=== PATIENT | male | born 1945 | race Caucasian/White ===

== ENCOUNTER 2021-01-27 10:25 | Inpatient (IN) | payer OTHER, SELFPAY ==
--- NOTE | ~2021-01-27 | CT_ITS ---
EXAMINATION: CT HEAD WITHOUT CONTRAST CLINICAL INFORMATION: Mental status change since August. Rule out CVA. COMPARISON: None available. TECHNIQUE: Contiguous axial imaging was performed from the skull base to vertex without intravenous administration of contrast. This CT examination was performed using dose optimization techniques as appropriate, variously including the following: *Automated exposure control *Adjustment of mA and/or kV according to patient size (this includes techniques or standardized protocols for targeted exams where dose is matched to indication/reason for exam; i.e. extremities or head) FINDINGS: There is no intracranial hemorrhage, hydrocephalus, extra-axial surface collection, midline shift, or other herniation pattern. Bedoya to white matter differentiation is diffusely maintained without evidence of an evolved acute territorial infarct. The basilar cisterns are preserved. No significant soft tissue abnormality. No acute osseous abnormality. Retention cyst and mild mucosal thickening within the left maxillary sinus. Mild mucosal thickening within the ethmoid air cells bilaterally. CT/CT head/brain wo con IMPRESSION: No acute intracranial abnormality.
[2021-01-27 11:00] VITALS: BP 141/72; PULSE 82; RESP 16; TEMP 36.5; O2SAT 100
[2021-01-27 11:43] VITALS: BMI 26.4
--- NOTE | 2021-01-27 12:38 | MHC.CARE ---
Addendum entered by Colette Duggan [facility] 01/27/21 12:40: Keep same auth number and reach out to reviewer, Patrick Quiroz will review auth on 01/28 [id number] Original Note: MICHAEL called patient's insurance co regarding the date of admission changing from 01/26/21 to 01/27/21
[2021-01-27] MEDS: Gabapentin 100 MG CAPSULE PO (12:54)
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
[2021-01-27] MEDS: risperiDONE 0.25 MG TABLET 0.5 MG PO (16:10)
[2021-01-27] MEDS: OLANZapine ODT 10 MG TAB.RAPDIS 5 MG TRANSLINGU (16:10)
[2021-01-27] MEDS: Acetaminophen 325 MG TABLET 650 MG PO (16:15)
[2021-01-27 18:00] VITALS: BP 123/78; PULSE 117; RESP 18; TEMP 36.6; O2SAT 99
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
[2021-01-27] MEDS: Donepezil HCl 10 MG TABLET PO (19:39)
[2021-01-28 06:00] VITALS: BP 139/80; PULSE 113; RESP 16; TEMP 36.8; O2SAT 97
[2021-01-28 08:06] LABS: Anion Gap 11 (12-20); Blood Urea Nitrogen 26 mg/dL (9-16); Calcium 9.9 mg/dL (8.4-10.2); Carbon Dioxide 29 mmol/L (22-29); Chloride 107 mmol/L (96-108); Estimated Glomerular Filt Rate > 60; Glucose Random 101 mg/dL (60-115); Potassium 5.4 mmol/L (3.3-5.1); Sodium 142 mmol/L (135-145)
--- NOTE | 2021-01-28 08:20 | HO.PSYCHPN ---
Subjective Subjective Date of Service: 01/28/21 Reason For Visit: dementia with behavioral disturbance Subjective Notes: Conditional Voluntary Interim History: The nursing staff reported that he slept well, no evidence of agitation since last night. As per admission's note, he has the diagnosis of dementia for the last 3 years, never admitted, but paranoid and aggressive for the last 2 months. On interview, he was confused but pleasant, no new symptoms, no side effects with Risperdal. Medication Compliance: Yes Side effects from medications: No Review of Systems Acute medical concerns: No Medical Review of Systems: unchanged Mental Status Exam Mental Status Exam Patient Appearance: Appropriate Patient Orientation: Person Level of Consciousness: Disoriented Patient Behavior: Suspicious Mood Description: Constricted Affect Description: Constricted Patient Cognition Impaired: Yes Ability to Follow Directions: Fair Speech Pattern: Clear Hallucinations: None Delusions: Paranoid Ideation Judgement: Fair Diagnostics Vital Signs (24Hr): Vital Signs - 24 hr 01/27/21 11:00 01/27/21 18:00 Temperature 97.7 F 97.9 F Pulse Rate 82 117 H Respiratory Rate 16 18 Blood Pressure 141/72 H 123/78 Pulse Oximetry 100 99 Body Mass Index 26.4 Labs Results: 01/28/21 07:42 Labs: Laboratory Results - last 48 hr 01/28/21 07:42 Sodium 142 Potassium 5.4 H Chloride 107 Carbon Dioxide 29 Anion Gap 11 L BUN 26 H Creatinine 1.18 Estim Creat Clear Calc 47.0 Estimated GFR > 60 Random Glucose 101 Calcium 9.9 Medications Medications Current Medications Generic Name Dose Route Start Last Admin Trade Name Freq PRN Reason Stop Dose Admin Acetaminophen 650 mg 01/27/21 12:17 01/27/21 16:15 Acetaminophen 325 Mg Tablet PO 650 mg Q6H PRN Administration Headache/Pain Mild Scale (1-3) Al Hydroxide/Mg Hydroxide 30 ml 01/27/21 12:17 Magnesium Hydrox/Alum Hydrox 30 Ml Oral.Susp PO Q6H PRN Heartburn/Nausea Apixaban 5 mg 01/28/21 09:00 Apixaban 5 Mg Tablet PO 01/28/21 09:01 DAILY ONE Donepezil HCl 10 mg 01/27/21 21:00 01/27/21 19:39 Donepezil Hcl 10 Mg Tablet PO 10 mg BEDTIME TAMI Administration Finasteride 5 mg 01/28/21 09:00 Finasteride 5 Mg Tablet PO DAILY TAMI Gabapentin 100 mg 01/27/21 12:26 01/27/21 12:54 Gabapentin 100 Mg Capsule PO 100 mg TID PRN Administration anxiety Magnesium Hydroxide 30 ml 01/27/21 12:17 Milk Of Magnesia 30 Ml Oral.Susp PO DAILY PRN Constipation Olanzapine 5 mg 01/27/21 12:21 01/27/21 16:10 Olanzapine Odt 10 Mg Tab.Rapdis TRANSLINGU 5 mg TID PRN Administration psychosis, agitation Omeprazole 20 mg 01/28/21 09:00 Omeprazole 20 Mg Capsule.Dr PO DAILY TAMI Risperidone 0.5 mg 01/27/21 16:00 01/27/21 16:10 Risperidone 0.25 Mg Tablet PO 0.5 mg BID TAMI Administration Trazodone HCl 25 mg 01/27/21 12:17 Trazodone Hcl 25 Mg Halftab PO BEDTIME PRN Insomnia Allergies Allergies Allergy/AdvReac Type Severity Reaction Status Date / Time No Known Allergies Allergy Verified 01/27/21 11:46 Assessment & Plan Assessment & Plan (1) Dementia with behavioral disturbance: Status: Acute Code(s): F03.91 - Unspecified dementia with behavioral disturbance (2) Agitation due to dementia: Status: Acute Code(s): F03.91 - Unspecified dementia with behavioral disturbance Assessment and Plan: Admit to [facility]. Admitted on CV. Group and milieu therapy Order medications and adjust accordingly [facility] Medical evaluation Disposition planning Greater than 50% of the session was spent on counseling and/or coordination of care Reason for contiued inpatient stay Substantial Risk for: harm to self, harm to others, inability to function, rapid decompensation and med/psych decompensation
[2021-01-28] MEDS: risperiDONE 0.25 MG TABLET 0.5 MG PO ×2 (09:20→18:15)
[2021-01-28] MEDS: Apixaban 5 MG TABLET PO ×2 (09:20→20:24)
[2021-01-28] MEDS: Finasteride 5 MG TABLET PO (09:21)
[2021-01-28] MEDS: Omeprazole 20 MG CAPSULE.DR PO (09:21)
--- NOTE | 2021-01-28 10:34 | P.CONIM_ITS ---
History of Present Illness Data of Consult Service Date: 01/28/21 Primary Care Provider: Mally Viveros MD [facility] Reason for consult: Medical H&P This is a 75 yo M who is admitted to the inpatient psych unit. Medical services are consulted for medical H&P. Patient is seen on the [facility]. Patient reports he has a history of Alzheimer's. Patient is also present, she mainly reports the history. She reports that her is relatively healthy with only diagnosis of the aforementioned dementia and recently (about 3 weeks ago) diagnosed DVT. Otherwise she reports no other chronic medical issues. The patient himself denies any physical complaints. Review of Systems Review of Systems: General - no fevers or chills Cardiovascular - no chest pain Respiratory - no shortness of breath or cough Abdominal- no abdominal pain, nausea, vomiting, diarrhea PMFSH Medical History (Updated 01/28/21 @ 10:50 by Jorge Snyder MD) Agitation due to dementia Dementia with behavioral disturbance DVT (deep venous thrombosis) Family History (Updated 01/28/21 @ 10:39 by Jorge Snyder MD) Other Cancer Social History Household Members: Sp[facility] Do you presently have visiting nurse or other home services: No Patient Tobacco Use Status: Former Tobacco user Tobacco use type: Cigarette Smoked in Last 30 Days: No e-Cigarette/Vaping Use: Never Used Patient Interested in Nicotine Replacement: No Patient Given Instructions on How to Stop Smoking: No (Patient quit smoking 30 years ago) Second Hand Smoke Exposure: No Use of substances other than those prescribed or required for medical reasons: No Currently Displaying Signs/Symptoms of Drug Intoxication Withdrawal: No Have you been hit, kicked, punched, or otherwise hurt by someone within the past year? If so, by whom?: No Do you feel safe in your current relationship?: Yes Is there a partner from a previous relationship who is making you feel unsafe now?: No Are you made to feel afraid or neglected: No Orthodox Healthcare Practices: Patient requests access to a Bible Advance Directives: No Advance Directives Information Provided: No (declined) Advance Directives on File: No Do you have thoughts of harming others: None Do you have a plan to hurt others: No Plan Recently lost weight without trying: No Eating poorly because of decreased appetite: No Poor oral hygiene: No Meds Allergies Allergy/AdvReac Type Severity Reaction Status Date / Time No Known Allergies Allergy Verified 01/27/21 11:46 Active Medications: Current Medications Generic Name Dose Route Start Last Admin Trade Name Ger PRN Reason Stop Dose Admin Acetaminophen 650 mg 01/27/21 12:17 01/27/21 16:15 Acetaminophen 325 Mg Tablet PO 650 mg Q6H PRN Administration Headache/Pain Mild Scale (1-3) Al Hydroxide/Mg Hydroxide 30 ml 01/27/21 12:17 Magnesium Hydrox/Alum Hydrox 30 Ml Oral.Susp PO Q6H PRN Heartburn/Nausea Donepezil HCl 10 mg 01/27/21 21:00 01/27/21 19:39 Donepezil Hcl 10 Mg Tablet PO 10 mg BEDTIME TAMI Administration Finasteride 5 mg 01/28/21 09:00 01/28/21 09:21 Finasteride 5 Mg Tablet PO 5 mg DAILY TAMI Administration Gabapentin 100 mg 01/27/21 12:26 01/27/21 12:54 Gabapentin 100 Mg Capsule PO 100 mg TID PRN Administration anxiety Magnesium Hydroxide 30 ml 01/27/21 12:17 Milk Of Magnesia 30 Ml Oral.Susp PO DAILY PRN Constipation Olanzapine 5 mg 01/27/21 12:21 01/27/21 16:10 Olanzapine Odt 10 Mg Tab.Rapdis TRANSLINGU 5 mg TID PRN Administration psychosis, agitation Omeprazole 20 mg 01/28/21 09:00 01/28/21 09:21 Omeprazole 20 Mg Capsule.Dr PO 20 mg DAILY TAMI Administration Risperidone 0.5 mg 01/27/21 16:00 01/28/21 09:20 Risperidone 0.25 Mg Tablet PO 0.5 mg BID TAMI Administration Trazodone HCl 25 mg 01/27/21 12:17 Trazodone Hcl 25 Mg Halftab PO BEDTIME PRN Insomnia Physical Exam Vital Signs and Narrative: Vital Signs: Last Vital Signs Temp 98.3 F 01/28/21 06:00 Pulse 113 H 01/28/21 06:00 Resp 16 01/28/21 06:00 BP 139/80 01/28/21 06:00 Pulse Ox 97 01/28/21 06:00 Body Mass Index 26.4 Const: Other: General - no acute distress, appears comfortable Cardiovascular - regular rate and rhythm, S1-S2 Lungs - normal respiratory effort, clear to auscultation bilaterally, no wheezing Abdomen - soft, non-tender, no rebound or guarding Extremities - no edema bilaterally Neuro - awake and alert, no focal deficits; CN 2-12 intact bilaterally Psych - insight impaired Results Labs CBC and Chem 7: 01/28/21 07:42 Labs: Laboratory Results - last 24 hr 01/28/21 07:42 Anion Gap 11 L Estim Creat Clear Calc 47.0 Estimated GFR > 60 Random Glucose 101 Calcium 9.9 Assessment and Plan (1) Routine medical exam: Status: Acute This is a 75 yo M with a PMH of alzheimer's dementia, recently diagnosed DVT (3 weeks ago per history from the ) who is admitted to the [facility]. Medical consult requested for admission H&P. 1. DVT recently diagnosed 3 weeks ago per Patient needs to be started on his oral anticoagulation -- his med rec needs to completed, this has been relayed to the patients RN as well covering psychiatrist. 2. Hyperkalemia will give a dose of lokelma, repeat bmp tomorrow 3. Alzheimer's dementia continue baseline meds Will sign off. Please reconsult or [facility] if any specific questions.
[2021-01-28] MEDS: Sodium Zirconium Cyclosilicate 10 GM POWD.PACK PO (14:44)
[2021-01-28] MEDS: OLANZapine ODT 10 MG TAB.RAPDIS 5 MG TRANSLINGU (14:45)
[2021-01-28] MEDS: Gabapentin 100 MG CAPSULE PO (18:15)
[2021-01-28] MEDS: Donepezil HCl 10 MG TABLET PO (20:24)
[2021-01-28 20:50] VITALS: BP 146/70; PULSE 80; RESP 19; TEMP 36.4; O2SAT 98
[2021-01-29 06:00] VITALS: BP 143/65; PULSE 83; RESP 18; TEMP 36.4; O2SAT 99
[2021-01-29 07:57] LABS: INTERNATIONAL NORM RATIO 1.2 (0.9-1.1); Prothrombin Time 13.2 SEC (9.9-13.0)
[2021-01-29 08:04] LABS: Anion Gap 12 (12-20); Blood Urea Nitrogen 24 mg/dL (9-16); Calcium 9.6 mg/dL (8.4-10.2); Carbon Dioxide 30 mmol/L (22-29); Chloride 106 mmol/L (96-108); Creatinine Clr Calc Pharmacy 51.4; Estimated Glomerular Filt Rate > 60; Glucose Random 96 mg/dL (60-115); Potassium 5.3 mmol/L (3.3-5.1); Sodium 143 mmol/L (135-145)
[2021-01-29] MEDS: Finasteride 5 MG TABLET PO (08:22)
[2021-01-29] MEDS: Omeprazole 20 MG CAPSULE.DR PO (08:22)
[2021-01-29] MEDS: Apixaban 5 MG TABLET PO ×2 (08:22→20:12)
[2021-01-29] MEDS: risperiDONE 0.25 MG TABLET 0.5 MG PO (08:22)
--- NOTE | 2021-01-29 12:39 | P.PNPSI_ITS ---
Subjective Subjective Date of Service: 01/29/21 Reason For Visit: dementia with behavioral disturbance Subjective Notes: Conditional Voluntary Interim History: The nursing staff reported that last night the patient was very angry, he called a relative asking for the phone number of his ex-. He was redirected that now, he is currently with another woman and he was confused. Today at AM, he was assessed with his and he denied new symptoms, stable but pleasantly confused. Medication Compliance: Yes Side effects from medications: No Attending Groups: No Review of Systems Acute medical concerns: No Medical Review of Systems: unchanged Mental Status Exam Mental Status Exam Patient Appearance: Well Grooomed Patient Orientation: Person Level of Consciousness: Awake Patient Behavior: Cooperative Mood Description: Withdrawn Affect Description: Constricted Patient Cognition Impaired: Yes Ability to Follow Directions: Good Speech Pattern: Appropriate Hallucinations: None Delusions: Not Present Thought Content: positive for [place] Judgement: Poor Diagnostics Vital Signs (24Hr): Vital Signs - 24 hr 01/28/21 20:50 01/29/21 06:00 Temperature 97.5 F 97.5 F Pulse Rate 80 83 Respiratory Rate 19 18 Blood Pressure 146/70 H 143/65 H Pulse Oximetry 98 99 Body Mass Index 26.4 Labs Results: 01/29/21 07:41 Labs: Laboratory Results - last 48 hr 01/28/21 01/29/21 01/29/21 07:42 07:41 07:41 PT 13.2 H INR 1.2 H Sodium 142 143 Potassium 5.4 H 5.3 H Chloride 107 106 Carbon Dioxide 29 30 H Anion Gap 11 L 12 BUN 26 H 24 H Creatinine 1.18 1.08 Estim Creat Clear Calc 47.0 51.4 Estimated GFR > 60 > 60 Random Glucose 101 96 Calcium 9.9 9.6 Medications Medications Current Medications Generic Name Dose Route Start Last Admin Trade Name Freq PRN Reason Stop Dose Admin Acetaminophen 650 mg 01/27/21 12:17 01/27/21 16:15 Acetaminophen 325 Mg Tablet PO 650 mg Q6H PRN Administration Headache/Pain Mild Scale (1-3) Al Hydroxide/Mg Hydroxide 30 ml 01/27/21 12:17 Magnesium Hydrox/Alum Hydrox 30 Ml Oral.Susp PO Q6H PRN Heartburn/Nausea Apixaban 5 mg 01/28/21 21:00 01/29/21 08:22 Apixaban 5 Mg Tablet PO 5 mg BID TAMI Administration Donepezil HCl 10 mg 01/27/21 21:00 01/28/21 20:24 Donepezil Hcl 10 Mg Tablet PO 10 mg BEDTIME TAMI Administration Finasteride 5 mg 01/28/21 09:00 01/29/21 08:22 Finasteride 5 Mg Tablet PO 5 mg DAILY TAMI Administration Gabapentin 100 mg 01/27/21 12:26 01/28/21 18:15 Gabapentin 100 Mg Capsule PO 100 mg TID PRN Administration anxiety Magnesium Hydroxide 30 ml 01/27/21 12:17 Milk Of Magnesia 30 Ml Oral.Susp PO DAILY PRN Constipation Olanzapine 5 mg 01/27/21 12:21 01/28/21 14:45 Olanzapine Odt 10 Mg Tab.Rapdis TRANSLINGU 5 mg TID PRN Administration psychosis, agitation Omeprazole 20 mg 01/28/21 09:00 01/29/21 08:22 Omeprazole 20 Mg Capsule.Dr PO 20 mg DAILY TAMI Administration Risperidone 0.5 mg 01/27/21 16:00 01/29/21 08:22 Risperidone 0.25 Mg Tablet PO 0.5 mg BID TAMI Administration Trazodone HCl 25 mg 01/27/21 12:17 Trazodone Hcl 25 Mg Halftab PO BEDTIME PRN Insomnia Allergies Allergies Allergy/AdvReac Type Severity Reaction Status Date / Time No Known Allergies Allergy Verified 01/27/21 11:46 Assessment & Plan Assessment & Plan (1) Dementia with behavioral disturbance: Status: Acute Code(s): F03.91 - Unspecified dementia with behavioral disturbance (2) Agitation due to dementia: Status: Acute Code(s): F03.91 - Unspecified dementia with behavioral disturbance Assessment and Plan: Admit to [facility]. Admitted on CV. Group and milieu therapy Order medications and adjust accordingly [facility] Medical evaluation Disposition planning Increase Risperdal at hs Greater than 50% of the session was spent on counseling and/or coordination of care Reason for contiued inpatient stay Substantial Risk for: harm to self, inability to function, rapid decompensation and med/psych decompensation
[2021-01-29] MEDS: risperiDONE 1 MG TABLET PO (20:12)
[2021-01-29] MEDS: Donepezil HCl 10 MG TABLET PO (20:12)
[2021-01-29 20:45] VITALS: BP 160/77; PULSE 93; RESP 16; TEMP 36.5; O2SAT 97
[2021-01-30 08:15] VITALS: BP 104/70; PULSE 91; RESP 16; TEMP 36.4; O2SAT 98
[2021-01-30] MEDS: Apixaban 5 MG TABLET PO ×2 (08:58→20:43)
[2021-01-30] MEDS: Omeprazole 20 MG CAPSULE.DR PO (08:58)
[2021-01-30] MEDS: risperiDONE 0.25 MG TABLET 0.5 MG PO (08:59)
[2021-01-30] MEDS: Finasteride 5 MG TABLET PO (09:01)
--- NOTE | 2021-01-30 13:46 | HO.PSYCHPN ---
Subjective Subjective Date of Service: 01/30/21 Reason For Visit: dementia with behavioral disturbance Subjective Notes: Conditional Voluntary Interim History: The nursing staff reported that the patient slept well and he had all his meals, no episode of agitation. The social services analyst reported that the feels that he is not safe at home due to the emotional disturbances of the patient but the patient wants to go back home. [place] test of today' is 12. Yesterday, I had a conversation with her regular provider in the community. The doctor explained that in November they tried to change Lexapro to Zoloft and Risperdal was started in most due to paranoia. He is engaging in a study of [employer] in for dementia and his last infusion was a month ago. As per the doctor's report, the infusion does not has paranoia as a side effect. She stated that her [place] or November 2019 was 21/30 and on April was 23 of over 30. On interview, the patient reported he is doing fine and he had a drastic drop on his [place] 9 points in less than 3 months. We will order a CT scan to rule out vascular problems Medication Compliance: Yes Side effects from medications: No Attending Groups: Intermittent Review of Systems Acute medical concerns: No Medical Review of Systems: unchanged Mental Status Exam Mental Status Exam Patient Appearance: Well Grooomed Patient Orientation: Person Level of Consciousness: Awake Patient Behavior: Cooperative Mood Description: Constricted Affect Description: Withdrawn and Relaxed Ability to Follow Directions: Good Speech Pattern: Clear Hallucinations: None Delusions: Paranoid Ideation Thought Process: Goal Oriented Thought Content: positive for Circumstantial and positive for Poverty of Content Judgement: Fair Diagnostics Vital Signs (24Hr): Vital Signs - 24 hr 01/29/21 20:45 01/30/21 08:15 Temperature 97.7 F 97.6 F Pulse Rate 93 91 Respiratory Rate 16 16 Blood Pressure 160/77 H 104/70 Pulse Oximetry 97 98 Body Mass Index 26.4 Labs Results: 01/29/21 07:41 Labs: Laboratory Results - last 48 hr 01/29/21 01/29/21 07:41 07:41 PT 13.2 H INR 1.2 H Sodium 143 Potassium 5.3 H Chloride 106 Carbon Dioxide 30 H Anion Gap 12 BUN 24 H Creatinine 1.08 Estim Creat Clear Calc 51.4 Estimated GFR > 60 Random Glucose 96 Calcium 9.6 Medications Medications Current Medications Generic Name Dose Route Start Last Admin Trade Name Freq PRN Reason Stop Dose Admin Acetaminophen 650 mg 01/27/21 12:17 01/27/21 16:15 Acetaminophen 325 Mg Tablet PO 650 mg Q6H PRN Administration Headache/Pain Mild Scale (1-3) Al Hydroxide/Mg Hydroxide 30 ml 01/27/21 12:17 Magnesium Hydrox/Alum Hydrox 30 Ml Oral.Susp PO Q6H PRN Heartburn/Nausea Apixaban 5 mg 01/28/21 21:00 01/30/21 08:58 Apixaban 5 Mg Tablet PO 5 mg BID TAMI Administration Donepezil HCl 10 mg 01/27/21 21:00 01/29/21 20:12 Donepezil Hcl 10 Mg Tablet PO 10 mg BEDTIME TAMI Administration Finasteride 5 mg 01/28/21 09:00 01/30/21 09:01 Finasteride 5 Mg Tablet PO 5 mg DAILY TAMI Administration Gabapentin 100 mg 01/27/21 12:26 01/28/21 18:15 Gabapentin 100 Mg Capsule PO 100 mg TID PRN Administration anxiety Magnesium Hydroxide 30 ml 01/27/21 12:17 Milk Of Magnesia 30 Ml Oral.Susp PO DAILY PRN Constipation Olanzapine 5 mg 01/27/21 12:21 01/28/21 14:45 Olanzapine Odt 10 Mg Tab.Rapdis TRANSLINGU 5 mg TID PRN Administration psychosis, agitation Omeprazole 20 mg 01/28/21 09:00 01/30/21 08:58 Omeprazole 20 Mg Capsule.Dr PO 20 mg DAILY TAMI Administration Risperidone 0.5 mg 01/30/21 09:00 01/30/21 08:59 Risperidone 0.25 Mg Tablet PO 0.5 mg DAILY TAMI Administration Risperidone 1 mg 01/29/21 21:00 01/29/21 20:12 Risperidone 1 Mg Tablet PO 1 mg BEDTIME TAMI Administration Trazodone HCl 25 mg 01/27/21 12:17 Trazodone Hcl 25 Mg Halftab PO BEDTIME PRN Insomnia Allergies Allergies Allergy/AdvReac Type Severity Reaction Status Date / Time No Known Allergies Allergy Verified 01/27/21 11:46 Assessment & Plan Assessment & Plan (1) Dementia with behavioral disturbance: Status: Acute Code(s): F03.91 - Unspecified dementia with behavioral disturbance (2) Agitation due to dementia: Status: Acute Code(s): F03.91 - Unspecified dementia with behavioral disturbance Assessment and Plan: Admit to [facility]. Admitted on CV. Group and milieu therapy Order medications and adjust accordingly [facility] Disposition planning Increase Risperdal at Add Namenda. Greater than 50% of the session was spent on counseling and/or coordination of care Reason for contiued inpatient stay Substantial Risk for: harm to others, inability to function, rapid decompensation and med/psych decompensation
[2021-01-30 18:00] VITALS: BP 137/72; PULSE 86; RESP 18; TEMP 36.1; O2SAT 99
[2021-01-30] MEDS: Donepezil HCl 10 MG TABLET PO (20:43)
[2021-01-30] MEDS: risperiDONE 1 MG TABLET PO (20:43)
[2021-01-31] MEDS: Acetaminophen 325 MG TABLET 650 MG PO ×2 (03:38→12:39)
[2021-01-31 09:38] VITALS: BP 145/65; PULSE 75; RESP 16; TEMP 36.5; O2SAT 99
[2021-01-31] MEDS: Apixaban 5 MG TABLET PO ×2 (09:43→19:49)
[2021-01-31] MEDS: Memantine HCl 5 MG TABLET PO ×2 (09:43→19:49)
[2021-01-31] MEDS: risperiDONE 0.25 MG TABLET 0.5 MG PO (09:44)
[2021-01-31] MEDS: Omeprazole 20 MG CAPSULE.DR PO (09:44)
[2021-01-31] MEDS: Finasteride 5 MG TABLET PO (09:45)
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
[2021-01-31 18:37] VITALS: BP 134/70; PULSE 84; RESP 19; TEMP 37.1; O2SAT 99
[2021-01-31] MEDS: Donepezil HCl 10 MG TABLET PO (19:49)
[2021-01-31] MEDS: risperiDONE 1 MG TABLET PO (19:49)
[2021-02-01 08:00] VITALS: BP 147/67; PULSE 77; RESP 16; TEMP 36.6; O2SAT 99
[2021-02-01] MEDS: Omeprazole 20 MG CAPSULE.DR PO (08:07)
[2021-02-01] MEDS: Apixaban 5 MG TABLET PO ×2 (08:07→22:37)
[2021-02-01] MEDS: Finasteride 5 MG TABLET PO (08:07)
[2021-02-01] MEDS: risperiDONE 0.25 MG TABLET 0.5 MG PO (08:07)
[2021-02-01] MEDS: Memantine HCl 5 MG TABLET PO (08:07)
--- NOTE | 2021-02-01 13:00 | HO.PSYCHPN ---
Subjective Subjective Date of Service: 02/01/21 Reason For Visit: dementia with behavioral disturbance Subjective Notes: Conditional Voluntary Interim History: The nursing staff reported no new changes on his mental status, he slept well last night. Today on interview, the patient reported that he is willing to go to an [facility]. He is fully aware that he needs an increase of his Namenda due to his cognitive impairment. Medication Compliance: Yes Side effects from medications: No Attending Groups: Intermittent Review of Systems Acute medical concerns: No Medical Review of Systems: unchanged Mental Status Exam Mental Status Exam Patient Appearance: Well Grooomed Patient Orientation: Person Level of Consciousness: Awake Patient Behavior: Cooperative Mood Description: Calm Affect Description: Constricted Ability to Follow Directions: Good Speech Pattern: Clear Hallucinations: None Delusions: Not Present Thought Process: Evasive Thought Content: positive for Circumstantial, positive for Poverty of Content and positive for Loose Associations Judgement: Fair Diagnostics Vital Signs (24Hr): Vital Signs - 24 hr 01/31/21 18:37 02/01/21 08:00 Temperature 98.8 F 97.8 F Pulse Rate 84 77 Respiratory Rate 19 16 Blood Pressure 134/70 147/67 H Pulse Oximetry 99 99 Body Mass Index 26.4 Labs Results: 01/29/21 07:41 Imaging Radiology Impressions: ITS Impressions Head CT 01/31/21 19:40 IMPRESSION: No acute intracranial abnormality. Medications Medications Current Medications Acetaminophen (Acetaminophen 325 Mg Tablet) 650 mg PO Q6H PRN PRN Reason: Headache/Pain Mild Scale (1-3) Last Admin: 01/31/21 12:39 Dose: 650 mg Documented by: Al Hydroxide/Mg Hydroxide (Magnesium Hydrox/Alum Hydrox 30 Ml Oral.Susp) 30 ml PO Q6H PRN PRN Reason: Heartburn/Nausea Apixaban (Apixaban 5 Mg Tablet) 5 mg PO BID [facility] Last Admin: 02/01/21 08:07 Dose: 5 mg Documented by: Donepezil HCl (Donepezil Hcl 10 Mg Tablet) 10 mg PO BEDTIME TAMI Last Admin: 01/31/21 19:49 Dose: 10 mg Documented by: Finasteride (Finasteride 5 Mg Tablet) 5 mg PO DAILY [facility] Last Admin: 02/01/21 08:07 Dose: 5 mg Documented by: Gabapentin (Gabapentin 100 Mg Capsule) 100 mg PO TID PRN PRN Reason: anxiety Last Admin: 01/28/21 18:15 Dose: 100 mg Documented by: Magnesium Hydroxide (Milk Of Magnesia 30 Ml Oral.Susp) 30 ml PO DAILY PRN PRN Reason: Constipation Memantine (Memantine Hcl 5 Mg Tablet) 5 mg PO BID [facility] Last Admin: 02/01/21 08:07 Dose: 5 mg Documented by: Olanzapine (Olanzapine Odt 10 Mg Tab.Rapdis) 5 mg TRANSLINGU TID PRN PRN Reason: psychosis, agitation Last Admin: 01/28/21 14:45 Dose: 5 mg Documented by: Omeprazole (Omeprazole 20 Mg Capsule.Dr) 20 mg PO DAILY [facility] Last Admin: 02/01/21 08:07 Dose: 20 mg Documented by: Risperidone (Risperidone 0.25 Mg Tablet) 0.5 mg PO DAILY [facility] Last Admin: 02/01/21 08:07 Dose: 0.5 mg Documented by: Risperidone (Risperidone 1 Mg Tablet) 1 mg PO BEDTIME [facility] Last Admin: 01/31/21 19:49 Dose: 1 mg Documented by: Trazodone HCl (Trazodone Hcl 25 Mg Halftab) 25 mg PO BEDTIME PRN PRN Reason: Insomnia Allergies Allergies Allergy/AdvReac Type Severity Reaction Status Date / Time No Known Allergies Allergy Verified 01/27/21 11:46 Assessment & Plan Assessment & Plan (1) Dementia with behavioral disturbance: Status: Acute Code(s): F03.91 - Unspecified dementia with behavioral disturbance (2) Agitation due to dementia: Status: Acute Code(s): F03.91 - Unspecified dementia with behavioral disturbance Assessment and Plan: Admit to [facility]. Admitted on CV. Group and milieu therapy Order medications and adjust accordingly [facility] Disposition planning Increase Risperdal at hs Increase Namenda to b.i.d. up to [address] scan head without contrast for tomorrow Greater than 50% of the session was spent on counseling and/or coordination of care Reason for contiued inpatient stay Substantial Risk for: inability to function, rapid decompensation and med/psych decompensation
[2021-02-01] MEDS: Donepezil HCl 10 MG TABLET PO (20:12)
[2021-02-01] MEDS: Memantine HCl 10 MG TABLET PO (20:12)
[2021-02-01] MEDS: risperiDONE 1 MG TABLET PO (20:12)
[2021-02-01 20:49] VITALS: BP 164/74; PULSE 76; RESP 19; TEMP 37.3; O2SAT 100
[2021-02-02 08:00] VITALS: BP 124/73; PULSE 76; RESP 18; TEMP 36.2; O2SAT 94
[2021-02-02] MEDS: Finasteride 5 MG TABLET PO (09:30)
[2021-02-02] MEDS: risperiDONE 0.25 MG TABLET 0.5 MG PO (09:30)
[2021-02-02] MEDS: Omeprazole 20 MG CAPSULE.DR PO (09:30)
[2021-02-02] MEDS: Apixaban 5 MG TABLET PO ×2 (09:31→19:40)
[2021-02-02] MEDS: Memantine HCl 10 MG TABLET PO ×2 (09:31→19:40)
[2021-02-02 18:00] VITALS: BP 147/76; PULSE 81; RESP 17; TEMP 36.2; O2SAT 100
[2021-02-02] MEDS: risperiDONE 1 MG TABLET PO (19:40)
[2021-02-02] MEDS: Donepezil HCl 10 MG TABLET PO (19:41)
--- NOTE | 2021-02-02 21:05 | P.PNPSI_ITS ---
Subjective Subjective Date of Service: 02/03/21 Reason For Visit: dementia with behavioral disturbance Interim History: Continues with dementia related behaviors but pleasant. visited. Pt is euphoric but disorganized. No dyscontrol. Review of Systems Acute medical concerns: No Medical Review of Systems: unchanged Review of Systems Review of Systems General - no fevers or chills Cardiovascular - no chest pain Respiratory - no shortness of breath or cough Abdominal- no abdominal pain, nausea, vomiting, diarrhea Mental Status Exam Mental Status Exam Patient Appearance: Well Grooomed Patient Orientation: Person Level of Consciousness: Awake Patient Behavior: Cooperative and Wandering Mood Description: Calm Affect Description: Constricted Patient Cognition Impaired: Yes Ability to Follow Directions: Good Speech Pattern: Clear Memory Description: Immediate Impaired and Recent Impaired Abnormal Motor Activity Signs and Symptoms: Hyperactivity Judgement: Poor Diagnostics Vital Signs (24Hr): Vital Signs - 24 hr 02/02/21 08:00 02/02/21 18:00 Temperature 97.2 F 97.2 F Pulse Rate 76 81 Respiratory Rate 18 17 Blood Pressure 124/73 147/76 H Pulse Oximetry 94 100 Body Mass Index 26.4 Labs Results: 01/29/21 07:41 Imaging Radiology Impressions: ITS Impressions Head CT 01/31/21 19:40 IMPRESSION: No acute intracranial abnormality. Medications Medications Current Medications Acetaminophen (Acetaminophen 325 Mg Tablet) 650 mg PO Q6H PRN PRN Reason: Headache/Pain Mild Scale (1-3) Last Admin: 01/31/21 12:39 Dose: 650 mg Documented by: Al Hydroxide/Mg Hydroxide (Magnesium Hydrox/Alum Hydrox 30 Ml Oral.Susp) 30 ml PO Q6H PRN PRN Reason: Heartburn/Nausea Apixaban (Apixaban 5 Mg Tablet) 5 mg PO BID [facility] Last Admin: 02/02/21 19:40 Dose: 5 mg Documented by: Donepezil HCl (Donepezil Hcl 10 Mg Tablet) 10 mg PO BEDTIME [facility] Last Admin: 02/02/21 19:41 Dose: 10 mg Documented by: Finasteride (Finasteride 5 Mg Tablet) 5 mg PO DAILY [facility] Last Admin: 02/02/21 09:30 Dose: 5 mg Documented by: Gabapentin (Gabapentin 100 Mg Capsule) 100 mg PO TID PRN PRN Reason: anxiety Last Admin: 01/28/21 18:15 Dose: 100 mg Documented by: Magnesium Hydroxide (Milk Of Magnesia 30 Ml Oral.Susp) 30 ml PO DAILY PRN PRN Reason: Constipation Memantine (Memantine Hcl 10 Mg Tablet) 10 mg PO BID [facility] Last Admin: 02/02/21 19:40 Dose: 10 mg Documented by: Olanzapine (Olanzapine Odt 10 Mg Tab.Rapdis) 5 mg TRANSLINGU TID PRN PRN Reason: psychosis, agitation Last Admin: 01/28/21 14:45 Dose: 5 mg Documented by: Omeprazole (Omeprazole 20 Mg Capsule.Dr) 20 mg PO DAILY [facility] Last Admin: 02/02/21 09:30 Dose: 20 mg Documented by: Risperidone (Risperidone 0.25 Mg Tablet) 0.5 mg PO DAILY [facility] Last Admin: 02/02/21 09:30 Dose: 0.5 mg Documented by: Risperidone (Risperidone 1 Mg Tablet) 1 mg PO BEDTIME [facility] Last Admin: 02/02/21 19:40 Dose: 1 mg Documented by: Trazodone HCl (Trazodone Hcl 25 Mg Halftab) 25 mg PO BEDTIME PRN PRN Reason: Insomnia Allergies Allergies Allergy/AdvReac Type Severity Reaction Status Date / Time No Known Allergies Allergy Verified 01/27/21 11:46 Assessment & Plan Assessment & Plan (1) Dementia with behavioral disturbance: Status: Acute Code(s): F03.91 - Unspecified dementia with behavioral disturbance (2) Agitation due to dementia: Status: Acute Code(s): F03.91 - Unspecified dementia with behavioral disturbance Assessment and Plan: Admit to [facility]. Admitted on CV. Group and milieu therapy Order medications and adjust accordingly [facility] Disposition planning Increase Risperdal at hs Increase Namenda to b.i.d. up to [address] scan head without contrast for tomorrow 02/02: Ct w Rx plan. Repeat lytes Greater than 50% of the session was spent on counseling and/or coordination of care Reason for contiued inpatient stay Substantial Risk for: med/psych decompensation
[2021-02-03 06:00] VITALS: BP 128/80; PULSE 80; RESP 18; TEMP 36.2; O2SAT 98
--- NOTE | 2021-02-03 07:16 | P.PNPSI_ITS ---
Subjective Subjective Date of Service: 02/03/21 Reason For Visit: dementia with behavioral disturbance Interim History: Continues with dementia related behaviors but pleasant. visited. Pt is euphoric but disorganized. No dyscontrol. Told he has her . Medication Compliance: Yes Side effects from medications: No Review of Systems Review of Systems General - no fevers or chills Cardiovascular - no chest pain Respiratory - no shortness of breath or cough Abdominal- no abdominal pain, nausea, vomiting, diarrhea Mental Status Exam Mental Status Exam Patient Appearance: Well Grooomed Patient Orientation: Person Level of Consciousness: Awake Patient Behavior: Cooperative and Wandering Mood Description: Calm Affect Description: Constricted Patient Cognition Impaired: Yes Ability to Follow Directions: Good Speech Pattern: Clear Memory Description: Immediate Impaired and Recent Impaired Diagnostics Vital Signs (24Hr): Vital Signs - 24 hr 02/02/21 08:00 02/02/21 18:00 Temperature 97.2 F 97.2 F Pulse Rate 76 81 Respiratory Rate 18 17 Blood Pressure 124/73 147/76 H Pulse Oximetry 94 100 Body Mass Index 26.4 Labs Results: 02/03/21 07:19 Imaging Radiology Impressions: ITS Impressions Head CT 01/31/21 19:40 IMPRESSION: No acute intracranial abnormality. Medications Medications Current Medications Acetaminophen (Acetaminophen 325 Mg Tablet) 650 mg PO Q6H PRN PRN Reason: Headache/Pain Mild Scale (1-3) Last Admin: 01/31/21 12:39 Dose: 650 mg Documented by: Al Hydroxide/Mg Hydroxide (Magnesium Hydrox/Alum Hydrox 30 Ml Oral.Susp) 30 ml PO Q6H PRN PRN Reason: Heartburn/Nausea Apixaban (Apixaban 5 Mg Tablet) 5 mg PO BID [facility] Last Admin: 02/02/21 19:40 Dose: 5 mg Documented by: Donepezil HCl (Donepezil Hcl 10 Mg Tablet) 10 mg PO BEDTIME [facility] Last Admin: 02/02/21 19:41 Dose: 10 mg Documented by: Finasteride (Finasteride 5 Mg Tablet) 5 mg PO DAILY [facility] Last Admin: 02/02/21 09:30 Dose: 5 mg Documented by: Gabapentin (Gabapentin 100 Mg Capsule) 100 mg PO TID PRN PRN Reason: anxiety Last Admin: 01/28/21 18:15 Dose: 100 mg Documented by: Magnesium Hydroxide (Milk Of Magnesia 30 Ml Oral.Susp) 30 ml PO DAILY PRN PRN Reason: Constipation Memantine (Memantine Hcl 10 Mg Tablet) 10 mg PO BID [facility] Last Admin: 02/02/21 19:40 Dose: 10 mg Documented by: Olanzapine (Olanzapine Odt 10 Mg Tab.Rapdis) 5 mg TRANSLINGU TID PRN PRN Reason: psychosis, agitation Last Admin: 01/28/21 14:45 Dose: 5 mg Documented by: Omeprazole (Omeprazole 20 Mg Capsule.Dr) 20 mg PO DAILY [facility] Last Admin: 02/02/21 09:30 Dose: 20 mg Documented by: Risperidone (Risperidone 0.25 Mg Tablet) 0.5 mg PO DAILY [facility] Last Admin: 02/02/21 09:30 Dose: 0.5 mg Documented by: Risperidone (Risperidone 1 Mg Tablet) 1 mg PO BEDTIME [facility] Last Admin: 02/02/21 19:40 Dose: 1 mg Documented by: Trazodone HCl (Trazodone Hcl 25 Mg Halftab) 25 mg PO BEDTIME PRN PRN Reason: Insomnia Allergies Allergies Allergy/AdvReac Type Severity Reaction Status Date / Time No Known Allergies Allergy Verified 01/27/21 11:46 Assessment & Plan Assessment & Plan (1) Dementia with behavioral disturbance: Status: Acute Code(s): F03.91 - Unspecified dementia with behavioral disturbance (2) Agitation due to dementia: Status: Acute Code(s): F03.91 - Unspecified dementia with behavioral disturbance Assessment and Plan: Admit to [facility]. Admitted on CV. Group and milieu therapy Order medications and adjust accordingly [facility] Disposition planning Increase Risperdal at hs Increase Namenda to b.i.d. up to [address] scan head without contrast for tomorrow 02/02: Ct w Rx plan. Repeat lytes Greater than 50% of the session was spent on counseling and/or coordination of care Reason for contiued inpatient stay Substantial Risk for: med/psych decompensation
[2021-02-03 07:48] LABS: Anion Gap 11 (12-20); Carbon Dioxide 28 mmol/L (22-29); Chloride 106 mmol/L (96-108); Potassium 4.2 mmol/L (3.3-5.1); Sodium 141 mmol/L (135-145)
[2021-02-03] MEDS: Apixaban 5 MG TABLET PO ×2 (08:21→20:22)
[2021-02-03] MEDS: Finasteride 5 MG TABLET PO (08:21)
[2021-02-03] MEDS: Memantine HCl 10 MG TABLET PO ×2 (08:22→20:22)
[2021-02-03] MEDS: risperiDONE 0.25 MG TABLET 0.5 MG PO (08:22)
[2021-02-03] MEDS: Omeprazole 20 MG CAPSULE.DR PO (08:22)
--- NOTE | 2021-02-03 16:39 | PC.NURSE ---
Pt had visit from his Eileen today. Pt said to his You have to let me go, we 25 years ago, I'm with Yojana now. Don't come back here, try to find your own .
[2021-02-03 18:00] VITALS: BP 155/80; PULSE 68; RESP 18; TEMP 36.2; O2SAT 100
[2021-02-03] MEDS: risperiDONE 1 MG TABLET PO (20:22)
[2021-02-03] MEDS: Donepezil HCl 10 MG TABLET PO (20:22)
[2021-02-04 09:29] VITALS: BP 153/72; PULSE 74; RESP 18; TEMP 36.3; O2SAT 98
[2021-02-04] MEDS: Finasteride 5 MG TABLET PO (09:31)
[2021-02-04] MEDS: Acetaminophen 325 MG TABLET 650 MG PO (09:32)
[2021-02-04] MEDS: risperiDONE 0.25 MG TABLET 0.5 MG PO (09:32)
[2021-02-04] MEDS: Omeprazole 20 MG CAPSULE.DR PO (09:32)
[2021-02-04] MEDS: Memantine HCl 10 MG TABLET PO ×2 (09:32→21:00)
[2021-02-04] MEDS: Apixaban 5 MG TABLET PO ×2 (09:33→21:00)
--- NOTE | 2021-02-04 13:22 | P.PNPSI_ITS ---
Subjective Subjective Date of Service: 02/04/21 Reason For Visit: dementia with behavioral disturbance Subjective Notes: Conditional Voluntary Interim History: The nursing staff reported that yesterday he was doing fairly well. He was confused with his yesterday and was only oriented to self. But he has been appropriate in all the groups. On interview, the patient denies new symptoms he is pleasantly confused. Review of Systems Acute medical concerns: No Medical Review of Systems: unchanged Mental Status Exam Mental Status Exam Patient Appearance: Well Grooomed Patient Orientation: Person Level of Consciousness: Awake Patient Behavior: Appropriate and Cooperative Mood Description: Calm Affect Description: Constricted Patient Cognition Impaired: Yes Ability to Follow Directions: Good Speech Pattern: Clear Delusions: Not Present Thought Process: Evasive and Slowed Thinking Thought Content: positive for Poverty of Content Judgement: Fair Diagnostics Vital Signs (24Hr): Vital Signs - 24 hr 02/03/21 18:00 02/04/21 09:29 Temperature 97.1 F 97.3 F Pulse Rate 68 74 Respiratory Rate 18 18 Blood Pressure 155/80 H 153/72 H Pulse Oximetry 100 98 Body Mass Index 26.4 Labs Results: 02/03/21 07:19 Labs: Laboratory Results - last 48 hr 02/03/21 07:19 Sodium 141 Potassium 4.2 D Chloride 106 Carbon Dioxide 28 Anion Gap 11 L Imaging Radiology Impressions: ITS Impressions Head CT 01/31/21 19:40 IMPRESSION: No acute intracranial abnormality. Medications Medications Current Medications Acetaminophen (Acetaminophen 325 Mg Tablet) 650 mg PO Q6H PRN PRN Reason: Headache/Pain Mild Scale (1-3) Last Admin: 02/04/21 09:32 Dose: 650 mg Documented by: Al Hydroxide/Mg Hydroxide (Magnesium Hydrox/Alum Hydrox 30 Ml Oral.Susp) 30 ml PO Q6H PRN PRN Reason: Heartburn/Nausea Apixaban (Apixaban 5 Mg Tablet) 5 mg PO BID [facility] Last Admin: 02/04/21 09:33 Dose: 5 mg Documented by: Donepezil HCl (Donepezil Hcl 10 Mg Tablet) 10 mg PO BEDTIME [facility] Last Admin: 02/03/21 20:22 Dose: 10 mg Documented by: Finasteride (Finasteride 5 Mg Tablet) 5 mg PO DAILY [facility] Last Admin: 02/04/21 09:31 Dose: 5 mg Documented by: Gabapentin (Gabapentin 100 Mg Capsule) 100 mg PO TID PRN PRN Reason: anxiety Last Admin: 01/28/21 18:15 Dose: 100 mg Documented by: Magnesium Hydroxide (Milk Of Magnesia 30 Ml Oral.Susp) 30 ml PO DAILY PRN PRN Reason: Constipation Memantine (Memantine Hcl 10 Mg Tablet) 10 mg PO BID [facility] Last Admin: 02/04/21 09:32 Dose: 10 mg Documented by: Olanzapine (Olanzapine Odt 10 Mg Tab.Rapdis) 5 mg TRANSLINGU TID PRN PRN Reason: psychosis, agitation Last Admin: 01/28/21 14:45 Dose: 5 mg Documented by: Omeprazole (Omeprazole 20 Mg Capsule.Dr) 20 mg PO DAILY [facility] Last Admin: 02/04/21 09:32 Dose: 20 mg Documented by: Risperidone (Risperidone 0.25 Mg Tablet) 0.5 mg PO DAILY [facility] Last Admin: 02/04/21 09:32 Dose: 0.5 mg Documented by: Risperidone (Risperidone 1 Mg Tablet) 1 mg PO BEDTIME [facility] Last Admin: 02/03/21 20:22 Dose: 1 mg Documented by: Trazodone HCl (Trazodone Hcl 25 Mg Halftab) 25 mg PO BEDTIME PRN PRN Reason: Insomnia Allergies Allergies Allergy/AdvReac Type Severity Reaction Status Date / Time No Known Allergies Allergy Verified 01/27/21 11:46 Assessment & Plan Assessment & Plan (1) Dementia with behavioral disturbance: Status: Acute Code(s): F03.91 - Unspecified dementia with behavioral disturbance (2) Agitation due to dementia: Status: Acute Code(s): F03.91 - Unspecified dementia with behavioral disturbance Assessment and Plan: Admit to [facility]. Admitted on CV. Group and milieu therapy Order medications and adjust accordingly [facility] evaluation Disposition planning Keep same treatment 02/02: Ct w Rx plan. Repeat lytes Greater than 50% of the session was spent on counseling and/or coordination of care Reason for contiued inpatient stay Substantial Risk for: harm to others, inability to function, rapid decompensation and med/psych decompensation
[2021-02-04 18:00] VITALS: BP 154/69; PULSE 71; RESP 18; TEMP 36.5; O2SAT 100
[2021-02-04] MEDS: Donepezil HCl 10 MG TABLET PO (21:00)
[2021-02-04] MEDS: risperiDONE 1 MG TABLET PO (21:00)
[2021-02-05 09:42] VITALS: BP 132/95; PULSE 80; RESP 18; O2SAT 100
[2021-02-05] MEDS: Omeprazole 20 MG CAPSULE.DR PO (09:51)
[2021-02-05] MEDS: risperiDONE 0.25 MG TABLET 0.5 MG PO (09:51)
[2021-02-05] MEDS: Finasteride 5 MG TABLET PO (09:51)
[2021-02-05] MEDS: Apixaban 5 MG TABLET PO ×2 (09:52→20:58)
[2021-02-05] MEDS: Memantine HCl 10 MG TABLET PO ×2 (09:52→20:57)
--- NOTE | 2021-02-05 14:16 | HO.PSYCHPN ---
Subjective Subjective Date of Service: 02/05/21 Reason For Visit: dementia with behavioral disturbance Subjective Notes: Conditional Voluntary Interim History: The nursing staff reported the patient has been pleasant and cooperative, confused but agreeable with care. On interview, the patient denies new symptoms he is pleasantly confused and he denied new side effects with the current medication. Medication Compliance: Yes Side effects from medications: No Attending Groups: Intermittent Review of Systems Acute medical concerns: No Medical Review of Systems: unchanged Mental Status Exam Mental Status Exam Patient Appearance: Well Grooomed and Appropriate Patient Orientation: Person and Situation Level of Consciousness: Awake Patient Behavior: Appropriate Mood Description: Calm Affect Description: Constricted Patient Cognition Impaired: Yes Ability to Follow Directions: Good Speech Pattern: Clear Memory Description: Intact Hallucinations: None Delusions: Not Present Thought Process: Goal Oriented and Slowed Thinking Thought Content: positive for Circumstantial and positive for Poverty of Content Judgement: Fair Diagnostics Vital Signs (24Hr): Vital Signs - 24 hr 02/04/21 18:00 02/05/21 09:42 Temperature 97.7 F Pulse Rate 71 80 Respiratory Rate 18 18 Blood Pressure 154/69 H 132/95 H Pulse Oximetry 100 100 Body Mass Index 26.4 Labs Results: 02/03/21 07:19 Imaging Radiology Impressions: ITS Impressions Head CT 01/31/21 19:40 IMPRESSION: No acute intracranial abnormality. Medications Medications Current Medications Acetaminophen (Acetaminophen 325 Mg Tablet) 650 mg PO Q6H PRN PRN Reason: Headache/Pain Mild Scale (1-3) Last Admin: 02/04/21 09:32 Dose: 650 mg Documented by: Al Hydroxide/Mg Hydroxide (Magnesium Hydrox/Alum Hydrox 30 Ml Oral.Susp) 30 ml PO Q6H PRN PRN Reason: Heartburn/Nausea Apixaban (Apixaban 5 Mg Tablet) 5 mg PO BID [facility] Last Admin: 02/05/21 09:52 Dose: 5 mg Documented by: Donepezil HCl (Donepezil Hcl 10 Mg Tablet) 10 mg PO BEDTIME [facility] Last Admin: 02/04/21 21:00 Dose: 10 mg Documented by: Finasteride (Finasteride 5 Mg Tablet) 5 mg PO DAILY [facility] Last Admin: 02/05/21 09:51 Dose: 5 mg Documented by: Gabapentin (Gabapentin 100 Mg Capsule) 100 mg PO TID PRN PRN Reason: anxiety Last Admin: 01/28/21 18:15 Dose: 100 mg Documented by: Magnesium Hydroxide (Milk Of Magnesia 30 Ml Oral.Susp) 30 ml PO DAILY PRN PRN Reason: Constipation Memantine (Memantine Hcl 10 Mg Tablet) 10 mg PO BID [facility] Last Admin: 02/05/21 09:52 Dose: 10 mg Documented by: Olanzapine (Olanzapine Odt 10 Mg Tab.Rapdis) 5 mg TRANSLINGU TID PRN PRN Reason: psychosis, agitation Last Admin: 01/28/21 14:45 Dose: 5 mg Documented by: Omeprazole (Omeprazole 20 Mg Capsule.Dr) 20 mg PO DAILY [facility] Last Admin: 02/05/21 09:51 Dose: 20 mg Documented by: Risperidone (Risperidone 0.25 Mg Tablet) 0.5 mg PO DAILY [facility] Last Admin: 02/05/21 09:51 Dose: 0.5 mg Documented by: Risperidone (Risperidone 1 Mg Tablet) 1 mg PO BEDTIME [facility] Last Admin: 02/04/21 21:00 Dose: 1 mg Documented by: Trazodone HCl (Trazodone Hcl 25 Mg Halftab) 25 mg PO BEDTIME PRN PRN Reason: Insomnia Allergies Allergies Allergy/AdvReac Type Severity Reaction Status Date / Time No Known Allergies Allergy Verified 01/27/21 11:46 Assessment & Plan Assessment & Plan (1) Dementia with behavioral disturbance: Status: Acute Code(s): F03.91 - Unspecified dementia with behavioral disturbance (2) Agitation due to dementia: Status: Acute Code(s): F03.91 - Unspecified dementia with behavioral disturbance Assessment and Plan: Admit to [facility]. Admitted on CV. Group and milieu therapy Order medications and adjust accordingly [facility] Disposition planning Keep same treatment 02/02: Ct w Rx plan. Repeat lytes Greater than 50% of the session was spent on counseling and/or coordination of care Reason for contiued inpatient stay Substantial Risk for: inability to function and rapid decompensation
[2021-02-05] MEDS: Acetaminophen 325 MG TABLET 650 MG PO (16:39)
[2021-02-05 20:20] VITALS: BP 145/77; PULSE 77; RESP 18; TEMP 36.2; O2SAT 100
[2021-02-05] MEDS: risperiDONE 1 MG TABLET PO (20:57)
[2021-02-05] MEDS: Donepezil HCl 10 MG TABLET PO (20:58)
[2021-02-06 08:23] VITALS: BP 139/62; PULSE 84; RESP 17; TEMP 36.3; O2SAT 100
[2021-02-06] MEDS: risperiDONE 0.25 MG TABLET 0.5 MG PO (08:24)
[2021-02-06] MEDS: Omeprazole 20 MG CAPSULE.DR PO (08:24)
[2021-02-06] MEDS: Memantine HCl 10 MG TABLET PO ×2 (08:24→20:09)
[2021-02-06] MEDS: Apixaban 5 MG TABLET PO ×2 (08:24→20:09)
[2021-02-06] MEDS: Finasteride 5 MG TABLET PO (08:25)
--- NOTE | 2021-02-06 11:30 | HO.PSYCHPN ---
Subjective Subjective Date of Service: 02/06/21 Reason For Visit: dementia with behavioral disturbance Interim History: Pt pleasant on approach. Pt reports he is here because I have Alzheimers. Pt insists he is in psych unit because of memory problems, little insight/recallection as to increase agitation. Pt states he is not depressed nor anxious. He reports sleeping and eating well. He reports he would like to return to his home with his , however, it appears does not feel safe with pt given progression of cognitive impairment. He denies SI/HI. He has been visible in the unit, social with select peers. Medication Compliance: Yes Side effects from medications: No Attending Groups: Intermittent Review of Systems Acute medical concerns: No Review of Systems Review of Systems General - no fevers or chills Cardiovascular - no chest pain Respiratory - no shortness of breath or cough Abdominal- no abdominal pain, nausea, vomiting, diarrhea Mental Status Exam Mental Status Exam Narrative: Appearance: casually groomed, fair hygiene in NAD Behavior:cooperative psychomotor:no agitation or retardation noted, no visible hand tremors Speech:clear, normal rate/rhythm/volume spontaneous Thought process:fairly linear and coherent Thought content:no signs of psychosis, wanting to return home with Mood: good Affect: congruent, bright, non labile SI:denies HI:denies VH/AH:denies Delusions:no overt delusional content reported Insight/judgment:poor x 2. Memory/cog: alert, oriented to month, year, date off by one day, not to situation or events leading to this admission. Not formamlly tested but note pt with hx of neurocognitive disorder. Diagnostics Vital Signs (24Hr): Vital Signs - 24 hr 02/06/21 08:23 Temperature 97.3 F Pulse Rate 84 Respiratory Rate 17 Blood Pressure 139/62 Pulse Oximetry 100 Body Mass Index 26.4 Labs Results: 02/03/21 07:19 Imaging Radiology Impressions: ITS Impressions Head CT 01/31/21 19:40 IMPRESSION: No acute intracranial abnormality. Medications Medications Current Medications Acetaminophen (Acetaminophen 325 Mg Tablet) 650 mg PO Q6H PRN PRN Reason: Headache/Pain Mild Scale (1-3) Last Admin: 02/05/21 16:39 Dose: 650 mg Documented by: Al Hydroxide/Mg Hydroxide (Magnesium Hydrox/Alum Hydrox 30 Ml Oral.Susp) 30 ml PO Q6H PRN PRN Reason: Heartburn/Nausea Apixaban (Apixaban 5 Mg Tablet) 5 mg PO BID [facility] Last Admin: 02/06/21 20:09 Dose: 5 mg Documented by: Donepezil HCl (Donepezil Hcl 10 Mg Tablet) 10 mg PO BEDTIME [facility] Last Admin: 02/06/21 20:08 Dose: 10 mg Documented by: Finasteride (Finasteride 5 Mg Tablet) 5 mg PO DAILY [facility] Last Admin: 02/06/21 08:25 Dose: 5 mg Documented by: Gabapentin (Gabapentin 100 Mg Capsule) 100 mg PO TID PRN PRN Reason: anxiety Last Admin: 01/28/21 18:15 Dose: 100 mg Documented by: Magnesium Hydroxide (Milk Of Magnesia 30 Ml Oral.Susp) 30 ml PO DAILY PRN PRN Reason: Constipation Memantine (Memantine Hcl 10 Mg Tablet) 10 mg PO BID [facility] Last Admin: 02/06/21 20:09 Dose: 10 mg Documented by: Olanzapine (Olanzapine Odt 10 Mg Tab.Rapdis) 5 mg TRANSLINGU TID PRN PRN Reason: psychosis, agitation Last Admin: 01/28/21 14:45 Dose: 5 mg Documented by: Omeprazole (Omeprazole 20 Mg Capsule.Dr) 20 mg PO DAILY [facility] Last Admin: 02/06/21 08:24 Dose: 20 mg Documented by: Risperidone (Risperidone 0.25 Mg Tablet) 0.5 mg PO DAILY [facility] Last Admin: 02/06/21 08:24 Dose: 0.5 mg Documented by: Risperidone (Risperidone 1 Mg Tablet) 1 mg PO BEDTIME [facility] Last Admin: 02/06/21 20:08 Dose: 1 mg Documented by: Trazodone HCl (Trazodone Hcl 25 Mg Halftab) 25 mg PO BEDTIME PRN PRN Reason: Insomnia Allergies Allergies Allergy/AdvReac Type Severity Reaction Status Date / Time No Known Allergies Allergy Verified 01/27/21 11:46 Assessment & Plan Assessment & Plan (1) Dementia with behavioral disturbance: Status: Acute Code(s): F03.91 - Unspecified dementia with behavioral disturbance (2) Agitation due to dementia: Status: Acute Code(s): F03.91 - Unspecified dementia with behavioral disturbance Assessment and Plan: Admit to [facility]. Admitted on CV. Group and milieu therapy Order medications and adjust accordingly [facility] Disposition planning Keep same treatment 02/02: Ct w Rx plan. Repeat lytes Greater than 50% of the session was spent on counseling and/or coordination of care Reason for contiued inpatient stay Substantial Risk for: inability to function
[2021-02-06 18:00] VITALS: BP 130/62; PULSE 79; RESP 19; TEMP 36.5; O2SAT 100
[2021-02-06] MEDS: risperiDONE 1 MG TABLET PO (20:08)
[2021-02-06] MEDS: Donepezil HCl 10 MG TABLET PO (20:08)
[2021-02-07 08:15] VITALS: BP 149/81; PULSE 92; RESP 17; TEMP 36.6; O2SAT 98
[2021-02-07] MEDS: Finasteride 5 MG TABLET PO (08:18)
[2021-02-07] MEDS: Memantine HCl 10 MG TABLET PO ×2 (08:18→20:39)
[2021-02-07] MEDS: Omeprazole 20 MG CAPSULE.DR PO (08:18)
[2021-02-07] MEDS: risperiDONE 0.25 MG TABLET 0.5 MG PO (08:19)
[2021-02-07] MEDS: Apixaban 5 MG TABLET PO ×2 (08:19→20:39)
[2021-02-07 11:08] VITALS: BMI 26.5
--- NOTE | 2021-02-07 16:32 | HO.PSYCHPN ---
Subjective Subjective Date of Service: 02/08/21 Reason For Visit: dementia with behavioral disturbance Subjective Notes: Conditional Voluntary Interim History: Pt pleasant on approach. Pt reports he is very excited because he is looking forward to go to his niece's wedding in [place] sometime this year, pt states he is not sure whether is this month or next one. He denies depressed or anxious mood. He denies SI/HI. No VH/AH. Per nursing, no behavioral concerns. Medication Compliance: Yes Side effects from medications: No Review of Systems Review of Systems General - no fevers or chills Cardiovascular - no chest pain Respiratory - no shortness of breath or cough Abdominal- no abdominal pain, nausea, vomiting, diarrhea Mental Status Exam Mental Status Exam Narrative: Appearance: casually groomed, fair hygiene in NAD Behavior:cooperative psychomotor:no agitation or retardation noted, no visible hand tremors Speech:clear, normal rate/rhythm/volume spontaneous Thought process:fairly linear and coherent Thought content:no signs of psychosis, wanting to return home with Mood: good Affect: congruent, bright, non labile SI:denies HI:denies VH/AH:denies Delusions:no overt delusional content reported Insight/judgment:poor x 2. Memory/cog: alert, oriented to month, year, date off by one day, not to situation or events leading to this admission. Not formamlly tested but note pt with hx of neurocognitive disorder. Diagnostics Vital Signs (24Hr): Vital Signs - 24 hr 02/07/21 21:15 02/08/21 06:00 Temperature 98.7 F 97.7 F Pulse Rate 77 76 Respiratory Rate 19 14 Blood Pressure 111/63 155/74 H Pulse Oximetry 98 100 Body Mass Index 26.5 Labs Results: 02/03/21 07:19 Imaging Radiology Impressions: ITS Impressions Head CT 01/31/21 19:40 IMPRESSION: No acute intracranial abnormality. Medications Medications Current Medications Acetaminophen (Acetaminophen 325 Mg Tablet) 650 mg PO Q6H PRN PRN Reason: Headache/Pain Mild Scale (1-3) Last Admin: 02/05/21 16:39 Dose: 650 mg Documented by: Al Hydroxide/Mg Hydroxide (Magnesium Hydrox/Alum Hydrox 30 Ml Oral.Susp) 30 ml PO Q6H PRN PRN Reason: Heartburn/Nausea Apixaban (Apixaban 5 Mg Tablet) 5 mg PO BID [facility] Last Admin: 02/08/21 07:36 Dose: 5 mg Documented by: Donepezil HCl (Donepezil Hcl 10 Mg Tablet) 10 mg PO BEDTIME [facility] Last Admin: 02/07/21 20:39 Dose: 10 mg Documented by: Finasteride (Finasteride 5 Mg Tablet) 5 mg PO DAILY [facility] Last Admin: 02/08/21 07:35 Dose: 5 mg Documented by: Gabapentin (Gabapentin 100 Mg Capsule) 100 mg PO TID PRN PRN Reason: anxiety Last Admin: 01/28/21 18:15 Dose: 100 mg Documented by: Magnesium Hydroxide (Milk Of Magnesia 30 Ml Oral.Susp) 30 ml PO DAILY PRN PRN Reason: Constipation Memantine (Memantine Hcl 10 Mg Tablet) 10 mg PO BID [facility] Last Admin: 02/08/21 07:36 Dose: 10 mg Documented by: Olanzapine (Olanzapine Odt 10 Mg Tab.Rapdis) 5 mg TRANSLINGU TID PRN PRN Reason: psychosis, agitation Last Admin: 01/28/21 14:45 Dose: 5 mg Documented by: Omeprazole (Omeprazole 20 Mg Capsule.Dr) 20 mg PO DAILY [facility] Last Admin: 02/08/21 07:36 Dose: 20 mg Documented by: Risperidone (Risperidone 0.25 Mg Tablet) 0.5 mg PO DAILY [facility] Last Admin: 02/08/21 07:35 Dose: 0.5 mg Documented by: Risperidone (Risperidone 1 Mg Tablet) 1 mg PO BEDTIME [facility] Last Admin: 02/07/21 20:39 Dose: 1 mg Documented by: Trazodone HCl (Trazodone Hcl 25 Mg Halftab) 25 mg PO BEDTIME PRN PRN Reason: Insomnia Allergies Allergies Allergy/AdvReac Type Severity Reaction Status Date / Time No Known Allergies Allergy Verified 01/27/21 11:46 Assessment & Plan Assessment & Plan (1) Dementia with behavioral disturbance: Status: Acute Code(s): F03.91 - Unspecified dementia with behavioral disturbance (2) Agitation due to dementia: Status: Acute Code(s): F03.91 - Unspecified dementia with behavioral disturbance Assessment and Plan: Admit to [facility]. Admitted on CV. Group and milieu therapy Order medications and adjust accordingly [facility] Disposition planning Keep same treatment 02/02: Ct w Rx plan. Repeat lytes Greater than 50% of the session was spent on counseling and/or coordination of care Reason for contiued inpatient stay Substantial Risk for: inability to function
[2021-02-07] MEDS: risperiDONE 1 MG TABLET PO (20:39)
[2021-02-07] MEDS: Donepezil HCl 10 MG TABLET PO (20:39)
[2021-02-07 21:15] VITALS: BP 111/63; PULSE 77; RESP 19; TEMP 37.1; O2SAT 98
[2021-02-08 06:00] VITALS: BP 155/74; PULSE 76; RESP 14; TEMP 36.5; O2SAT 100
[2021-02-08] MEDS: Finasteride 5 MG TABLET PO (07:35)
[2021-02-08] MEDS: risperiDONE 0.25 MG TABLET 0.5 MG PO ×2 (07:35→22:49)
[2021-02-08] MEDS: Omeprazole 20 MG CAPSULE.DR PO (07:36)
[2021-02-08] MEDS: Memantine HCl 10 MG TABLET PO ×2 (07:36→19:21)
[2021-02-08] MEDS: Apixaban 5 MG TABLET PO ×2 (07:36→19:21)
--- NOTE | 2021-02-08 09:34 | P.PNPSI_ITS ---
Subjective Subjective Date of Service: 02/08/21 Reason For Visit: dementia with behavioral disturbance Interim History: Pt pleasant on approach. Pt reports he wants to be more active. He asks this rewriter about healthy eating and booklet about nutrition. Pt reports he can't wait to go home so that he can exercise more often. He denies depressed or anxious mood. He denies SI/HI. No VH/AH. Per nursing, no behavioral concerns. Pt attends groups, social with peers. Review of Systems Review of Systems General - no fevers or chills Cardiovascular - no chest pain Respiratory - no shortness of breath or cough Abdominal- no abdominal pain, nausea, vomiting, diarrhea Mental Status Exam Mental Status Exam Narrative: Appearance: casually groomed, fair hygiene in NAD Behavior:cooperative psychomotor:no agitation or retardation noted, no visible hand tremors Speech:clear, normal rate/rhythm/volume spontaneous Thought process:fairly linear and coherent Thought content:no signs of psychosis, wanting to return home with Mood: good Affect: congruent, bright, non labile SI:denies HI:denies VH/AH:denies Delusions:no overt delusional content reported Insight/judgment:poor x 2. Memory/cog: alert, oriented to month, year, date off by one day, not to situation or events leading to this admission. Not formamlly tested but note pt with hx of neurocognitive disorder. Diagnostics Vital Signs (24Hr): Vital Signs - 24 hr 02/07/21 21:15 02/08/21 06:00 Temperature 98.7 F 97.7 F Pulse Rate 77 76 Respiratory Rate 19 14 Blood Pressure 111/63 155/74 H Pulse Oximetry 98 100 Body Mass Index 26.5 Labs Results: 02/03/21 07:19 Imaging Radiology Impressions: ITS Impressions Head CT 01/31/21 19:40 IMPRESSION: No acute intracranial abnormality. Medications Medications Current Medications Acetaminophen (Acetaminophen 325 Mg Tablet) 650 mg PO Q6H PRN PRN Reason: Headache/Pain Mild Scale (1-3) Last Admin: 02/05/21 16:39 Dose: 650 mg Documented by: Al Hydroxide/Mg Hydroxide (Magnesium Hydrox/Alum Hydrox 30 Ml Oral.Susp) 30 ml PO Q6H PRN PRN Reason: Heartburn/Nausea Apixaban (Apixaban 5 Mg Tablet) 5 mg PO BID [facility] Last Admin: 02/08/21 07:36 Dose: 5 mg Documented by: Donepezil HCl (Donepezil Hcl 10 Mg Tablet) 10 mg PO BEDTIME [facility] Last Admin: 02/07/21 20:39 Dose: 10 mg Documented by: Finasteride (Finasteride 5 Mg Tablet) 5 mg PO DAILY [facility] Last Admin: 02/08/21 07:35 Dose: 5 mg Documented by: Gabapentin (Gabapentin 100 Mg Capsule) 100 mg PO TID PRN PRN Reason: anxiety Last Admin: 01/28/21 18:15 Dose: 100 mg Documented by: Magnesium Hydroxide (Milk Of Magnesia 30 Ml Oral.Susp) 30 ml PO DAILY PRN PRN Reason: Constipation Memantine (Memantine Hcl 10 Mg Tablet) 10 mg PO BID [facility] Last Admin: 02/08/21 07:36 Dose: 10 mg Documented by: Olanzapine (Olanzapine Odt 10 Mg Tab.Rapdis) 5 mg TRANSLINGU TID PRN PRN Reason: psychosis, agitation Last Admin: 01/28/21 14:45 Dose: 5 mg Documented by: Omeprazole (Omeprazole 20 Mg Capsule.Dr) 20 mg PO DAILY [facility] Last Admin: 02/08/21 07:36 Dose: 20 mg Documented by: Risperidone (Risperidone 0.25 Mg Tablet) 0.5 mg PO DAILY [facility] Last Admin: 02/08/21 07:35 Dose: 0.5 mg Documented by: Risperidone (Risperidone 1 Mg Tablet) 1 mg PO BEDTIME [facility] Last Admin: 02/07/21 20:39 Dose: 1 mg Documented by: Trazodone HCl (Trazodone Hcl 25 Mg Halftab) 25 mg PO BEDTIME PRN PRN Reason: Insomnia Allergies Allergies Allergy/AdvReac Type Severity Reaction Status Date / Time No Known Allergies Allergy Verified 01/27/21 11:46 Assessment & Plan Assessment & Plan (1) Dementia with behavioral disturbance: Status: Acute Code(s): F03.91 - Unspecified dementia with behavioral disturbance (2) Agitation due to dementia: Status: Acute Code(s): F03.91 - Unspecified dementia with behavioral disturbance Assessment and Plan: Admit to [facility]. Admitted on CV. Group and milieu therapy Order medications and adjust accordingly [facility] Disposition planning Keep same treatment 02/02: Ct w Rx plan. Repeat lytes Greater than 50% of the session was spent on counseling and/or coordination of care Reason for contiued inpatient stay Substantial Risk for: inability to function
[2021-02-08] MEDS: Donepezil HCl 10 MG TABLET PO (19:21)
[2021-02-08] MEDS: risperiDONE 1 MG TABLET PO (23:06)
[2021-02-09 05:18] VITALS: BP 138/78; PULSE 70; RESP 16; TEMP 36.2; O2SAT 97
[2021-02-09] MEDS: Finasteride 5 MG TABLET PO (08:58)
[2021-02-09] MEDS: Memantine HCl 10 MG TABLET PO ×2 (08:58→19:59)
[2021-02-09] MEDS: Apixaban 5 MG TABLET PO ×2 (08:58→20:00)
[2021-02-09] MEDS: Omeprazole 20 MG CAPSULE.DR PO (08:58)
[2021-02-09] MEDS: risperiDONE 0.25 MG TABLET 0.5 MG PO (09:02)
--- NOTE | 2021-02-09 10:12 | HO.PSYCHPN ---
Subjective Subjective Date of Service: 02/09/21 Reason For Visit: dementia with behavioral disturbance Subjective Notes: Conditional Voluntary Interim History: Patient was seen in rounds today. He continues to be confused at times, eating and sleeping adequately. No complaints or side effects. He has been med compliant. No side effects reported. No auditory or visual hallucinations. No SI. No changes were made today Mental Status Exam Mental Status Exam Narrative: Appearance: casually groomed, fair hygiene in NAD Behavior:cooperative psychomotor:no agitation or retardation noted, no visible hand tremors Speech:clear, normal rate/rhythm/volume spontaneous Thought process:fairly linear and coherent Thought content:no signs of psychosis, wanting to return home with Mood: good Affect: congruent, bright, non labile SI:denies HI:denies VH/AH:denies Delusions:no overt delusional content reported Insight/judgment:poor x 2. Memory/cog: alert, oriented to month, year, date off by one day, not to situation or events leading to this admission. Not formamlly tested but note pt with hx of neurocognitive disorder. Diagnostics Vital Signs (24Hr): Vital Signs - 24 hr 02/09/21 05:18 Temperature 97.1 F Pulse Rate 70 Respiratory Rate 16 Blood Pressure 138/78 Pulse Oximetry 97 Body Mass Index 26.5 Labs Results: 02/03/21 07:19 Imaging Radiology Impressions: ITS Impressions Head CT 01/31/21 19:40 IMPRESSION: No acute intracranial abnormality. Medications Medications Current Medications Acetaminophen (Acetaminophen 325 Mg Tablet) 650 mg PO Q6H PRN PRN Reason: Headache/Pain Mild Scale (1-3) Last Admin: 02/05/21 16:39 Dose: 650 mg Documented by: Al Hydroxide/Mg Hydroxide (Magnesium Hydrox/Alum Hydrox 30 Ml Oral.Susp) 30 ml PO Q6H PRN PRN Reason: Heartburn/Nausea Apixaban (Apixaban 5 Mg Tablet) 5 mg PO BID [facility] Last Admin: 02/09/21 08:58 Dose: 5 mg Documented by: Donepezil HCl (Donepezil Hcl 10 Mg Tablet) 10 mg PO BEDTIME [facility] Last Admin: 02/08/21 19:21 Dose: 10 mg Documented by: Finasteride (Finasteride 5 Mg Tablet) 5 mg PO DAILY [facility] Last Admin: 02/09/21 08:58 Dose: 5 mg Documented by: Gabapentin (Gabapentin 100 Mg Capsule) 100 mg PO TID PRN PRN Reason: anxiety Last Admin: 01/28/21 18:15 Dose: 100 mg Documented by: Magnesium Hydroxide (Milk Of Magnesia 30 Ml Oral.Susp) 30 ml PO DAILY PRN PRN Reason: Constipation Memantine (Memantine Hcl 10 Mg Tablet) 10 mg PO BID [facility] Last Admin: 02/09/21 08:58 Dose: 10 mg Documented by: Olanzapine (Olanzapine Odt 10 Mg Tab.Rapdis) 5 mg TRANSLINGU TID PRN PRN Reason: psychosis, agitation Last Admin: 01/28/21 14:45 Dose: 5 mg Documented by: Omeprazole (Omeprazole 20 Mg Capsule.Dr) 20 mg PO DAILY [facility] Last Admin: 02/09/21 08:58 Dose: 20 mg Documented by: Risperidone (Risperidone 0.25 Mg Tablet) 0.5 mg PO DAILY [facility] Last Admin: 02/09/21 09:02 Dose: 0.5 mg Documented by: Risperidone (Risperidone 1 Mg Tablet) 1 mg PO BEDTIME [facility] Last Admin: 02/08/21 23:06 Dose: 1 mg Documented by: Trazodone HCl (Trazodone Hcl 25 Mg Halftab) 25 mg PO BEDTIME PRN PRN Reason: Insomnia Allergies Allergies Allergy/AdvReac Type Severity Reaction Status Date / Time No Known Allergies Allergy Verified 01/27/21 11:46 Assessment & Plan Assessment & Plan (1) Dementia with behavioral disturbance: Status: Acute Code(s): F03.91 - Unspecified dementia with behavioral disturbance (2) Agitation due to dementia: Status: Acute Code(s): F03.91 - Unspecified dementia with behavioral disturbance Assessment and Plan: Current medications and treatment plan review then maintained Greater than 50% of the session was spent on counseling and/or coordination of care Reason for contiued inpatient stay Substantial Risk for: other
[2021-02-09 18:00] VITALS: BP 154/68; PULSE 71; TEMP 36.8; O2SAT 98
[2021-02-09] MEDS: risperiDONE 1 MG TABLET PO (19:59)
[2021-02-09] MEDS: Donepezil HCl 10 MG TABLET PO (19:59)
[2021-02-10] MEDS: Acetaminophen 325 MG TABLET 650 MG PO (04:41)
[2021-02-10 04:58] VITALS: BP 155/78; PULSE 84; RESP 18; TEMP 36.4; O2SAT 99
[2021-02-10] MEDS: Apixaban 5 MG TABLET PO ×2 (08:43→20:44)
[2021-02-10] MEDS: Omeprazole 20 MG CAPSULE.DR PO (08:43)
[2021-02-10] MEDS: Memantine HCl 10 MG TABLET PO ×2 (08:43→20:44)
[2021-02-10] MEDS: Finasteride 5 MG TABLET PO (08:43)
[2021-02-10] MEDS: risperiDONE 0.25 MG TABLET 0.5 MG PO (08:43)
--- NOTE | 2021-02-10 09:22 | P.PNPSI_ITS ---
Subjective Subjective Date of Service: 02/10/21 Reason For Visit: dementia with behavioral disturbance Subjective Notes: Conditional Voluntary Interim History: Patient was seen and discussed in rounds today. At he has been doing fairly well. He is pleasant. He is med compliant. Some confusion persisting secondary to his dementia. No complaints or side effects. Eating and sleeping adequately. No changes were made today. Medication Compliance: Yes Side effects from medications: No Review of Systems Review of Systems General - no fevers or chills Cardiovascular - no chest pain Respiratory - no shortness of breath or cough Abdominal- no abdominal pain, nausea, vomiting, diarrhea Mental Status Exam Mental Status Exam Narrative: Appearance: casually groomed, fair hygiene in NAD Behavior:cooperative psychomotor:no agitation or retardation noted, no visible hand tremors Speech:clear, normal rate/rhythm/volume spontaneous Thought process:fairly linear and coherent Thought content:no signs of psychosis, wanting to return home with Mood: good Affect: congruent, bright, non labile SI:denies HI:denies VH/AH:denies Delusions:no overt delusional content reported Insight/judgment:poor x 2. Memory/cog: alert, oriented to month, year, date off by one day, not to situation or events leading to this admission. Not formamlly tested but note pt with hx of neurocognitive disorder. Diagnostics Vital Signs (24Hr): Vital Signs - 24 hr 02/09/21 18:00 02/10/21 04:58 Temperature 98.2 F 97.5 F Pulse Rate 71 84 Respiratory Rate 18 Blood Pressure 154/68 H 155/78 H Pulse Oximetry 98 99 Body Mass Index 26.5 Labs Results: 02/03/21 07:19 Imaging Radiology Impressions: ITS Impressions Head CT 01/31/21 19:40 IMPRESSION: No acute intracranial abnormality. Medications Medications Current Medications Acetaminophen (Acetaminophen 325 Mg Tablet) 650 mg PO Q6H PRN PRN Reason: Headache/Pain Mild Scale (1-3) Last Admin: 02/10/21 04:41 Dose: 650 mg Documented by: Al Hydroxide/Mg Hydroxide (Magnesium Hydrox/Alum Hydrox 30 Ml Oral.Susp) 30 ml PO Q6H PRN PRN Reason: Heartburn/Nausea Apixaban (Apixaban 5 Mg Tablet) 5 mg PO BID [facility] Last Admin: 02/10/21 08:43 Dose: 5 mg Documented by: Donepezil HCl (Donepezil Hcl 10 Mg Tablet) 10 mg PO BEDTIME [facility] Last Admin: 02/09/21 19:59 Dose: 10 mg Documented by: Finasteride (Finasteride 5 Mg Tablet) 5 mg PO DAILY [facility] Last Admin: 02/10/21 08:43 Dose: 5 mg Documented by: Gabapentin (Gabapentin 100 Mg Capsule) 100 mg PO TID PRN PRN Reason: anxiety Last Admin: 01/28/21 18:15 Dose: 100 mg Documented by: Magnesium Hydroxide (Milk Of Magnesia 30 Ml Oral.Susp) 30 ml PO DAILY PRN PRN Reason: Constipation Memantine (Memantine Hcl 10 Mg Tablet) 10 mg PO BID [facility] Last Admin: 02/10/21 08:43 Dose: 10 mg Documented by: Olanzapine (Olanzapine Odt 10 Mg Tab.Rapdis) 5 mg TRANSLINGU TID PRN PRN Reason: psychosis, agitation Last Admin: 01/28/21 14:45 Dose: 5 mg Documented by: Omeprazole (Omeprazole 20 Mg Capsule.Dr) 20 mg PO DAILY [facility] Last Admin: 02/10/21 08:43 Dose: 20 mg Documented by: Risperidone (Risperidone 0.25 Mg Tablet) 0.5 mg PO DAILY [facility] Last Admin: 02/10/21 08:43 Dose: 0.5 mg Documented by: Risperidone (Risperidone 1 Mg Tablet) 1 mg PO BEDTIME [facility] Last Admin: 02/09/21 19:59 Dose: 1 mg Documented by: Trazodone HCl (Trazodone Hcl 25 Mg Halftab) 25 mg PO BEDTIME PRN PRN Reason: Insomnia Allergies Allergies Allergy/AdvReac Type Severity Reaction Status Date / Time No Known Allergies Allergy Verified 01/27/21 11:46 Assessment & Plan Assessment & Plan (1) Dementia with behavioral disturbance: Status: Acute Code(s): F03.91 - Unspecified dementia with behavioral disturbance (2) Agitation due to dementia: Status: Acute Code(s): F03.91 - Unspecified dementia with behavioral disturbance Assessment and Plan: Current medications and treatment plan review then maintained Reason for contiued inpatient stay Substantial Risk for: other
[2021-02-10 18:55] VITALS: PULSE 65; RESP 18; TEMP 36.1; O2SAT 99
[2021-02-10 18:56] VITALS: BP 164/77
[2021-02-10] MEDS: risperiDONE 1 MG TABLET PO (20:44)
[2021-02-10] MEDS: Donepezil HCl 10 MG TABLET PO (20:44)
[2021-02-11] MEDS: Omeprazole 20 MG CAPSULE.DR PO (08:09)
[2021-02-11] MEDS: Apixaban 5 MG TABLET PO ×2 (08:10→19:54)
[2021-02-11] MEDS: Memantine HCl 10 MG TABLET PO ×2 (08:10→19:54)
[2021-02-11] MEDS: risperiDONE 0.25 MG TABLET 0.5 MG PO (08:12)
[2021-02-11] MEDS: Finasteride 5 MG TABLET PO (08:15)
[2021-02-11 08:18] VITALS: BP 121/63; PULSE 81; RESP 16; O2SAT 100
--- NOTE | 2021-02-11 11:24 | P.PNPSI_ITS ---
Subjective Subjective Date of Service: 02/11/21 Reason For Visit: dementia with behavioral disturbance Subjective Notes: Conditional Voluntary Interim History: The nursing staff reported that the patient has been at baseline, he attends to groups and he states that he does not have any problems. He remains confused and he stated that he was going home today. On interview, the patient denies new symptoms he is pleasantly confused Review of Systems Acute medical concerns: No Medical Review of Systems: unchanged Mental Status Exam Mental Status Exam Patient Appearance: Well Grooomed Patient Orientation: Person Level of Consciousness: Awake Patient Behavior: Cooperative Mood Description: Constricted Affect Description: Calm Patient Cognition Impaired: Yes Ability to Follow Directions: Good Speech Pattern: Appropriate Hallucinations: None Delusions: Not Present Thought Process: Goal Oriented Thought Content: positive for Intact Judgement: Fair Diagnostics Vital Signs (24Hr): Vital Signs - 24 hr 02/10/21 18:55 02/10/21 18:56 02/11/21 08:18 Temperature 97.0 F Pulse Rate 65 81 Respiratory Rate 18 16 Blood Pressure 164/77 H 121/63 Pulse Oximetry 99 100 Body Mass Index 26.5 Labs Results: 02/03/21 07:19 Imaging Radiology Impressions: ITS Impressions Head CT 01/31/21 19:40 IMPRESSION: No acute intracranial abnormality. Medications Medications Current Medications Acetaminophen (Acetaminophen 325 Mg Tablet) 650 mg PO Q6H PRN PRN Reason: Headache/Pain Mild Scale (1-3) Last Admin: 02/10/21 04:41 Dose: 650 mg Documented by: Al Hydroxide/Mg Hydroxide (Magnesium Hydrox/Alum Hydrox 30 Ml Oral.Susp) 30 ml PO Q6H PRN PRN Reason: Heartburn/Nausea Apixaban (Apixaban 5 Mg Tablet) 5 mg PO BID [facility] Last Admin: 02/11/21 08:10 Dose: 5 mg Documented by: Donepezil HCl (Donepezil Hcl 10 Mg Tablet) 10 mg PO BEDTIME [facility] Last Admin: 02/10/21 20:44 Dose: 10 mg Documented by: Finasteride (Finasteride 5 Mg Tablet) 5 mg PO DAILY [facility] Last Admin: 02/11/21 08:15 Dose: 5 mg Documented by: Gabapentin (Gabapentin 100 Mg Capsule) 100 mg PO TID PRN PRN Reason: anxiety Last Admin: 01/28/21 18:15 Dose: 100 mg Documented by: Magnesium Hydroxide (Milk Of Magnesia 30 Ml Oral.Susp) 30 ml PO DAILY PRN PRN Reason: Constipation Memantine (Memantine Hcl 10 Mg Tablet) 10 mg PO BID [facility] Last Admin: 02/11/21 08:10 Dose: 10 mg Documented by: Olanzapine (Olanzapine Odt 10 Mg Tab.Rapdis) 5 mg TRANSLINGU TID PRN PRN Reason: psychosis, agitation Last Admin: 01/28/21 14:45 Dose: 5 mg Documented by: Omeprazole (Omeprazole 20 Mg Capsule.Dr) 20 mg PO DAILY [facility] Last Admin: 02/11/21 08:09 Dose: 20 mg Documented by: Risperidone (Risperidone 0.25 Mg Tablet) 0.5 mg PO DAILY [facility] Last Admin: 02/11/21 08:12 Dose: 0.5 mg Documented by: Risperidone (Risperidone 1 Mg Tablet) 1 mg PO BEDTIME [facility] Last Admin: 02/10/21 20:44 Dose: 1 mg Documented by: Trazodone HCl (Trazodone Hcl 25 Mg Halftab) 25 mg PO BEDTIME PRN PRN Reason: Insomnia Allergies Allergies Allergy/AdvReac Type Severity Reaction Status Date / Time No Known Allergies Allergy Verified 01/27/21 11:46 Assessment & Plan Assessment & Plan (1) Dementia with behavioral disturbance: Status: Acute Code(s): F03.91 - Unspecified dementia with behavioral disturbance (2) Agitation due to dementia: Status: Acute Code(s): F03.91 - Unspecified dementia with behavioral disturbance Assessment and Plan: The patient is an elderly male with a history of dementia who was brought into the hospital for psychotic symptoms and agitation. So far, the patient has responded very well to risperidone. Plan. 1. Continue same treatment Greater than 50% of the session was spent on counseling and/or coordination of care Reason for contiued inpatient stay Substantial Risk for: inability to function, rapid decompensation and med/psych decompensation
[2021-02-11 18:00] VITALS: BP 141/70; PULSE 70; RESP 17; TEMP 37.1; O2SAT 100
[2021-02-11] MEDS: Donepezil HCl 10 MG TABLET PO (19:55)
[2021-02-11] MEDS: risperiDONE 1 MG TABLET PO (19:55)
[2021-02-12 06:00] VITALS: BP 133/70; PULSE 71; TEMP 36.8; O2SAT 98
[2021-02-12] MEDS: Apixaban 5 MG TABLET PO ×2 (08:15→20:27)
[2021-02-12] MEDS: Memantine HCl 10 MG TABLET PO ×2 (08:15→20:27)
[2021-02-12] MEDS: Finasteride 5 MG TABLET PO (08:15)
[2021-02-12] MEDS: Omeprazole 20 MG CAPSULE.DR PO (08:15)
[2021-02-12] MEDS: risperiDONE 0.25 MG TABLET 0.5 MG PO (08:15)
--- NOTE | 2021-02-12 14:57 | P.PNPSI_ITS ---
Subjective Subjective Date of Service: 02/12/21 Reason For Visit: dementia with behavioral disturbance Subjective Notes: Conditional Voluntary Interim History: The nursing staff has reported the patient has been doing fine, he has being cheerful and energetic at times. On interview, the patient denies new symptoms and he is waiting for placement. Mental Status Exam Mental Status Exam Patient Appearance: Well Grooomed Patient Orientation: Person and Situation Level of Consciousness: Awake Patient Behavior: Cooperative Mood Description: Calm Affect Description: Constricted Ability to Follow Directions: Good Speech Pattern: Appropriate Hallucinations: None Delusions: Not Present Thought Content: positive for Circumstantial Judgement: Fair Diagnostics Vital Signs (24Hr): Vital Signs - 24 hr 02/11/21 18:00 02/12/21 06:00 Temperature 98.7 F 98.2 F Pulse Rate 70 71 Respiratory Rate 17 Blood Pressure 141/70 H 133/70 Pulse Oximetry 100 98 Body Mass Index 26.5 Labs Results: 02/03/21 07:19 Imaging Radiology Impressions: ITS Impressions Head CT 01/31/21 19:40 IMPRESSION: No acute intracranial abnormality. Medications Medications Current Medications Acetaminophen (Acetaminophen 325 Mg Tablet) 650 mg PO Q6H PRN PRN Reason: Headache/Pain Mild Scale (1-3) Last Admin: 02/10/21 04:41 Dose: 650 mg Documented by: Al Hydroxide/Mg Hydroxide (Magnesium Hydrox/Alum Hydrox 30 Ml Oral.Susp) 30 ml PO Q6H PRN PRN Reason: Heartburn/Nausea Apixaban (Apixaban 5 Mg Tablet) 5 mg PO BID [facility] Last Admin: 02/12/21 08:15 Dose: 5 mg Documented by: Donepezil HCl (Donepezil Hcl 10 Mg Tablet) 10 mg PO BEDTIME [facility] Last Admin: 02/11/21 19:55 Dose: 10 mg Documented by: Finasteride (Finasteride 5 Mg Tablet) 5 mg PO DAILY [facility] Last Admin: 02/12/21 08:15 Dose: 5 mg Documented by: Gabapentin (Gabapentin 100 Mg Capsule) 100 mg PO TID PRN PRN Reason: anxiety Last Admin: 01/28/21 18:15 Dose: 100 mg Documented by: Magnesium Hydroxide (Milk Of Magnesia 30 Ml Oral.Susp) 30 ml PO DAILY PRN PRN Reason: Constipation Memantine (Memantine Hcl 10 Mg Tablet) 10 mg PO BID [facility] Last Admin: 02/12/21 08:15 Dose: 10 mg Documented by: Olanzapine (Olanzapine Odt 10 Mg Tab.Rapdis) 5 mg TRANSLINGU TID PRN PRN Reason: psychosis, agitation Last Admin: 01/28/21 14:45 Dose: 5 mg Documented by: Omeprazole (Omeprazole 20 Mg Capsule.Dr) 20 mg PO DAILY [facility] Last Admin: 02/12/21 08:15 Dose: 20 mg Documented by: Risperidone (Risperidone 0.25 Mg Tablet) 0.5 mg PO DAILY [facility] Last Admin: 02/12/21 08:15 Dose: 0.5 mg Documented by: Risperidone (Risperidone 1 Mg Tablet) 1 mg PO BEDTIME [facility] Last Admin: 02/11/21 19:55 Dose: 1 mg Documented by: Trazodone HCl (Trazodone Hcl 25 Mg Halftab) 25 mg PO BEDTIME PRN PRN Reason: Insomnia Allergies Allergies Allergy/AdvReac Type Severity Reaction Status Date / Time No Known Allergies Allergy Verified 01/27/21 11:46 Assessment & Plan Assessment & Plan (1) Dementia with behavioral disturbance: Status: Acute Code(s): F03.91 - Unspecified dementia with behavioral disturbance (2) Agitation due to dementia: Status: Acute Code(s): F03.91 - Unspecified dementia with behavioral disturbance Assessment and Plan: The patient is an elderly male with a history of dementia who was brought into the hospital for psychotic symptoms and agitation. So far, the patient has responded very well to risperidone. Plan. 1. Continue same treatment Greater than 50% of the session was spent on counseling and/or coordination of care Reason for contiued inpatient stay Substantial Risk for: inability to function and rapid decompensation
[2021-02-12] MEDS: risperiDONE 1 MG TABLET PO (20:27)
[2021-02-12] MEDS: Donepezil HCl 10 MG TABLET PO (20:27)
[2021-02-12 20:33] VITALS: BP 148/67; PULSE 83; RESP 18; TEMP 36.7; O2SAT 99
[2021-02-13 06:00] VITALS: BP 144/67; PULSE 80; RESP 18; TEMP 36.4; O2SAT 98
[2021-02-13] MEDS: Memantine HCl 10 MG TABLET PO ×2 (08:05→20:15)
[2021-02-13] MEDS: risperiDONE 0.25 MG TABLET 0.5 MG PO (08:05)
[2021-02-13] MEDS: Finasteride 5 MG TABLET PO (08:06)
[2021-02-13] MEDS: Apixaban 5 MG TABLET PO ×2 (08:06→20:15)
[2021-02-13] MEDS: Omeprazole 20 MG CAPSULE.DR PO (08:08)
--- NOTE | 2021-02-13 10:33 | HO.PSYCHPN ---
Subjective Subjective Date of Service: 02/13/21 Reason For Visit: dementia with behavioral disturbance Subjective Notes: Conditional Voluntary Interim History: The nursing staff did not report new changes the patient. On interview, the patient states that he is doing very well, he has been socializing with peers and he has attends to several groups. His mood remains stable. Review of Systems Acute medical concerns: No Medical Review of Systems: unchanged Mental Status Exam Mental Status Exam Patient Appearance: Well Grooomed Patient Orientation: Person Level of Consciousness: Awake Patient Behavior: Cooperative and Passive Mood Description: Calm Affect Description: Calm Patient Cognition Impaired: Yes Ability to Follow Directions: Good Speech Pattern: Clear Hallucinations: None Delusions: Not Present Thought Process: Goal Oriented Thought Content: positive for Circumstantial Judgement: Fair Diagnostics Vital Signs (24Hr): Vital Signs - 24 hr 02/12/21 20:33 02/13/21 06:00 Temperature 98.1 F 97.5 F Pulse Rate 83 80 Respiratory Rate 18 18 Blood Pressure 148/67 H 144/67 H Pulse Oximetry 99 98 Body Mass Index 26.5 Labs Results: 02/03/21 07:19 Imaging Radiology Impressions: ITS Impressions Head CT 01/31/21 19:40 IMPRESSION: No acute intracranial abnormality. Medications Medications Current Medications Acetaminophen (Acetaminophen 325 Mg Tablet) 650 mg PO Q6H PRN PRN Reason: Headache/Pain Mild Scale (1-3) Last Admin: 02/10/21 04:41 Dose: 650 mg Documented by: Al Hydroxide/Mg Hydroxide (Magnesium Hydrox/Alum Hydrox 30 Ml Oral.Susp) 30 ml PO Q6H PRN PRN Reason: Heartburn/Nausea Apixaban (Apixaban 5 Mg Tablet) 5 mg PO BID [facility] Last Admin: 02/13/21 08:06 Dose: 5 mg Documented by: Donepezil HCl (Donepezil Hcl 10 Mg Tablet) 10 mg PO BEDTIME [facility] Last Admin: 02/12/21 20:27 Dose: 10 mg Documented by: Finasteride (Finasteride 5 Mg Tablet) 5 mg PO DAILY [facility] Last Admin: 02/13/21 08:06 Dose: 5 mg Documented by: Gabapentin (Gabapentin 100 Mg Capsule) 100 mg PO TID PRN PRN Reason: anxiety Last Admin: 01/28/21 18:15 Dose: 100 mg Documented by: Magnesium Hydroxide (Milk Of Magnesia 30 Ml Oral.Susp) 30 ml PO DAILY PRN PRN Reason: Constipation Memantine (Memantine Hcl 10 Mg Tablet) 10 mg PO BID [facility] Last Admin: 02/13/21 08:05 Dose: 10 mg Documented by: Olanzapine (Olanzapine Odt 10 Mg Tab.Rapdis) 5 mg TRANSLINGU TID PRN PRN Reason: psychosis, agitation Last Admin: 01/28/21 14:45 Dose: 5 mg Documented by: Omeprazole (Omeprazole 20 Mg Capsule.Dr) 20 mg PO DAILY [facility] Last Admin: 02/13/21 08:08 Dose: 20 mg Documented by: Risperidone (Risperidone 0.25 Mg Tablet) 0.5 mg PO DAILY [facility] Last Admin: 02/13/21 08:05 Dose: 0.5 mg Documented by: Risperidone (Risperidone 1 Mg Tablet) 1 mg PO BEDTIME [facility] Last Admin: 02/12/21 20:27 Dose: 1 mg Documented by: Trazodone HCl (Trazodone Hcl 25 Mg Halftab) 25 mg PO BEDTIME PRN PRN Reason: Insomnia Allergies Allergies Allergy/AdvReac Type Severity Reaction Status Date / Time No Known Allergies Allergy Verified 01/27/21 11:46 Assessment & Plan Assessment & Plan (1) Dementia with behavioral disturbance: Status: Acute Code(s): F03.91 - Unspecified dementia with behavioral disturbance (2) Agitation due to dementia: Status: Acute Code(s): F03.91 - Unspecified dementia with behavioral disturbance Assessment and Plan: The patient is an elderly male with a history of dementia who was brought into the hospital for psychotic symptoms and agitation. So far, the patient has responded very well to risperidone. Plan. 1. Continue same treatment . 2. He will be discharged tomorrow to [facility] Greater than 50% of the session was spent on counseling and/or coordination of care Reason for contiued inpatient stay Substantial Risk for: stable for discharge and med/psych decompensation
[2021-02-13 18:00] VITALS: BP 151/64; PULSE 62; RESP 18; TEMP 36.5; O2SAT 100
[2021-02-13] MEDS: risperiDONE 1 MG TABLET PO (20:15)
[2021-02-13] MEDS: Donepezil HCl 10 MG TABLET PO (20:15)
[2021-02-14 06:00] VITALS: BP 148/86; PULSE 89; RESP 16; TEMP 36.1; O2SAT 96
[2021-02-14 07:00] VITALS: BMI 27.6
[2021-02-14] MEDS: risperiDONE 0.25 MG TABLET 0.5 MG PO (09:03)
[2021-02-14] MEDS: Memantine HCl 10 MG TABLET PO (09:07)
[2021-02-14] MEDS: Apixaban 5 MG TABLET PO (09:07)
[2021-02-14] MEDS: Omeprazole 20 MG CAPSULE.DR PO (09:07)
[2021-02-14] MEDS: Finasteride 5 MG TABLET PO (09:08)
--- NOTE | 2021-02-14 09:24 | P.DS_ITS ---
DS: Providers Provider Date of Service: 02/14/21 Date of admission: 01/27/21 10:25 Date of discharge: 02/14/21 Primary care physician: Mally Viveros MD Consults: 01/27/21 12:19 Consult to Hospitalist Routine Consulting Provider: Hospitalist Reason For Exam: Admission H&P Attending physician on discharge: Boris Hdz DS: Diagnosis Discharge Diagnosis (1) Dementia with behavioral disturbance: Status: Acute (2) Agitation due to dementia: Status: Acute DS: Medications Discharge Medications Home Medications: Home Medications Medication Instructions Recorded Confirmed apixaban 5 mg tablet 5 mg PO BID 01/28/21 01/28/21 donepezil 10 mg tablet 10 mg PO BEDTIME 01/28/21 01/28/21 gabapentin 100 mg capsule 100 mg PO DAILY 01/28/21 01/28/21 pantoprazole 20 mg tablet,delayed 20 mg PO DAILY 01/28/21 01/28/21 release risperidone 0.25 mg tablet mg 01/28/21 sertraline 50 mg tablet 50 mg PO DAILY 01/28/21 01/28/21 turmeric 400 mg capsule PO 01/28/21 Mental Status Exam Mental Status Exam Patient Appearance: Well Grooomed Patient Orientation: Person and Place Level of Consciousness: Awake and Appropriate Patient Behavior: Cooperative Mood Description: Calm and Appropriate Affect Description: Constricted Patient Cognition Impaired: Yes Ability to Follow Directions: Good Speech Pattern: Clear Hallucinations: None Delusions: Not Present Thought Process: Linear Thought Content: positive for Linear, positive for Poverty of Content and positive for Preoccupation Judgement: Fair Data Imaging Diagnostic Imaging Impressions Head CT 01/31/21 19:40 IMPRESSION: No acute intracranial abnormality. DS: Summary Hospital Course Hospital Course: The patient was admitted initially for psychotic symptoms, disorientation and aggressiveness described on the HPI. He was started on risperidone titrated slowly up to 0.5 mg in the morning and 1 mg at bedtime. The patient was able to tolerate the medication fairly well and his aggressiveness and psychotic symptoms resolved in the following 10 days. The patient was able to participate in groups, he was cooperative and pleasant. Cognitively he was very deteriorated, his [place] test is court 12 a certain point. We contacted his outpatient psychiatrist and apparently in the last 6 months he has lost like 9 points on the [place]. He participate in a trial of a medication for dementia. The web content & social media manager contacted the family and discharge planning was discussed. Since the patient requires a higher level of care for his normal functionality, the search for on [facility] was started and finally he was accepted at [facility]. At the moment of discharge, the patient was pleasant cooperative, no evidence of psychotic symptoms and he was willing to continue treatment. 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 Referrals: [facility] (therapists) [Other] - 1 Week (Initial appointment scheduled for ) [facility] (psychiatrist) [Other] - 1 Week (Initial medication appointment scheduled for ) Mally Viveros MD [Primary Care Provider] - 1 Week Discharge Medications: New risperidone 0.25 mg Tablet 0.5 mg PO DAILY 60 Days Qty: 120 RF: 0 risperidone 1 mg Tablet 1 mg PO BEDTIME 60 Days Qty: 60 RF: 0 finasteride [Proscar] 5 mg Tablet 5 mg PO DAILY 60 Days Qty: 60 RF: 0 memantine [Namenda] 10 mg Tablet 10 mg PO BID 60 Days Qty: 120 RF: 0 Continued donepezil 10 mg Tablet 10 mg PO BEDTIME 60 Days Qty: 60 RF: 0 pantoprazole 20 mg Tablet,Delayed Release (Dr/Ec) 20 mg PO DAILY 60 Days Qty: 60 RF: 0 apixaban 5 mg Tablet 5 mg PO BID 60 Days Qty: 120 RF: 0 Changed turmeric 400 mg Capsule 400 mg PO DAILY 60 Days Qty: 60 RF: 0 Discontinued gabapentin 100 mg Capsule 100 mg PO DAILY RF: 0 risperidone 0.25 mg Tablet RF: 0 sertraline 50 mg Tablet 50 mg PO DAILY RF: 0 Discharge Orders: Discharge Order (Routine); Ordered 02/14/21 Ordered By: Boris Hdz Diet: advance to usual diet Activity on Discharge: As tolerated Stand Alone Forms: Patient Portal Discharge page Care Plan Goals: Care plan goals are for the achieved in the facility Health Concerns: Continue treatment by primary care physician as an outpatient Plan of Treatment: Continue psychiatric treatment as an outpatient with medication management and psychotherapy Assessment: The patient is an elderly male with a history of dementia who became more aggressive and delusional in the context of medical problems. Current he is stable, at baseline but with cognitive deterioration. Safe for discharge
--- NOTE | 2021-02-14 13:07 | PC.NURSE ---
Mr Pulliam is alert, oriented to self, pleasant and appropriate in interactions with staff and peers. He is aware he is being discharged today but appears unaware that he is going to [place] despite frequent reorientation. He denies ideation, plan or intent to harm self or others. He notes his mood is calm and attributes this to good sleep, good food and upcoming discharge. He is compliant with prescribed medications. He is ambulating throughout the unit without difficulty. He notes he had a bm this morning. He denies physical complaint.
== END 2021-02-14 13:08 | DRG 884 ==
PROVIDERS: Family Medicine; Psychiatry & Neurology Psychiatry; Admitting Provider Psychiatry & Neurology Psychiatry; PCP Internal Medicine; Visit Provider Psychiatry & Neurology Psychiatry
DX: F06.8 Other specified mental disorders due to known physiological condition (principal); F02.81 Dementia in other diseases classified elsewhere, unspecified severity, with behavioral disturbance; G30.9 Alzheimer's disease, unspecified; Z87.891 Personal history of nicotine dependence; E87.5 Hyperkalemia; Z86.718 Personal history of other venous thrombosis and embolism; Z79.01 Long term (current) use of anticoagulants; Z79.899 Other long term (current) drug therapy
CPT/HCPCS: 36415; 70450; 80048; 80051; 85610; 99223

== ENCOUNTER 2021-09-15 10:47 | Inpatient (IN) | payer OTHER, SELFPAY ==
--- NOTE | ~2021-09-15 | CT_ITS ---
EXAMINATION: CT HEAD WITHOUT CONTRAST CLINICAL INFORMATION: Acute psychosis. COMPARISON: CT dated 01/31/2021. TECHNIQUE: Contiguous axial imaging was performed from the skull base to vertex without intravenous administration of contrast. This CT examination was performed using dose optimization techniques as appropriate, variously including the following: *Automated exposure control *Adjustment of mA and/or kV according to patient size (this includes techniques or standardized protocols for targeted exams where dose is matched to indication/reason for exam; i.e. extremities or head) *Use of iterative reconstruction technique DLP: 682 mGy-cm FINDINGS: There is no evidence of acute intracranial hemorrhage or territorial infarction. No abnormal mass effect or midline shift is seen. Bedoya to white matter differentiation is well preserved. No extra-axial fluid collections are identified. The ventricles are normal in size. There is no abnormal attenuation within the brain parenchyma. The osseous structures and soft tissues are normal. The mastoid air cells are well aerated. There are patchy areas of mucosal thickening in the ethmoid and left maxillary sinuses. CT/CT head/brain wo con IMPRESSION: No acute intracranial pathology.
[2021-09-15 11:11] VITALS: BP 133/70; BP 144/75; PULSE 69; PULSE 83; RESP 17; TEMP 36.8; O2SAT 97; O2SAT 98; BMI 31.8
--- NOTE | 2021-09-15 11:30 | ECG_ITS ---
Test Reason : ALTERED MENTAL Blood Pressure : / mmHG Vent. Rate : 061 BPM Atrial Rate : 061 BPM P-R Int : 180 ms QRS Dur : 090 ms QT Int : 432 ms P-R-T Axes : 042 -04 -02 degrees QTc Int : 434 ms Normal sinus rhythm Minimal voltage criteria for LVH, may be normal variant ( R in aVL ) Borderline ECG No previous ECGs available Referred By: Ralph Rees Electronically Signed By:Noel Londono
--- NOTE | 2021-09-15 11:34 | ED.PSYCH ---
HPI - Psych General Chief Complaint: Psychiatric Symptoms Stated Complaint: section 12 Time Seen by Provider: 09/15/21 11:17 Source: patient Mode of arrival: ambulatory Limitations: no limitations History of Present Illness HPI Narrative: 75-year-old male history of dementia and alzehemiers presents to the ED for auditory hallucinations telling him to be homicidal and suicidal. As per patient also having dreams of suicidal/ homicidal ideation. states this has been occurring for the past 2 months and his medication has been changed from risperidone to olanzapine by his nurse practitioner. Patient was evaluated by [facility] wanted him to be seen in the ER. Patient cooperates story. Patient denies any physical complaints. Patient denies any chest pain, shortness of breath, headache, dizziness, abdominal pain, dysuria, hematuria, or flank pain. Patient states no fever or chills. Related Data Home Medications Medication Instructions Recorded Confirmed escitalopram oxalate 5 mg tablet 1 tab PO DAILY 09/15/21 09/15/21 fluticasone propionate 50 2 spray INTRANASAL DAILY 09/15/21 09/15/21 mcg/actuation nasal spray,suspension olanzapine 5 mg tablet 5 mg PO BID PRN 09/15/21 09/15/21 risperidone 1 mg tablet 3 mg PO BEDTIME 09/15/21 09/15/21 Previous Rx's Medication Instructions Recorded apixaban 5 mg tablet 5 mg PO BID 60 Days #120 tab 02/14/21 donepezil 10 mg tablet 10 mg PO BEDTIME 60 Days #60 tab 02/14/21 finasteride 5 mg tablet (Proscar) 5 mg PO DAILY 60 Days #60 tab 02/14/21 memantine 10 mg tablet (Namenda) 10 mg PO BID 60 Days #120 tab 02/14/21 Allergies Allergy/AdvReac Type Severity Reaction Status Date / Time No Known Allergies Allergy Verified 01/27/21 11:46 Review of Systems Review of Systems: auditory hallucinations. Suicidal/homicidal ideation Yes all other systems are reviewed and are negative PMFSH Past Medical History Medical History (Updated 09/15/21 @ 21:59 by NANCY Avelar) Agitation due to dementia Dementia with behavioral disturbance DVT (deep venous thrombosis) Family History Family History (Updated 01/28/21 @ 10:39 by Jorge Snyder MD) Other Cancer Social History Social History Household Members: Spouse Housing: Condominium Do you presently have visiting nurse or other home services: No Alcohol intake: never Patient Tobacco Use Status: Former Tobacco user Tobacco use type: Cigarette e-Cigarette/Vaping Use: Never Used Second Hand Smoke Exposure: No Use of substances other than those prescribed or required for medical reasons: No Advance Directives: Yes Advance Directives on File: Yes Advance Directives Date on File: 02/18/21 service: Yes Sexual orientation: Straight/Heterosexual Physical Exam Vital Signs: Vital Signs: Last Vital Signs Temp 97.5 F 09/15/21 21:19 Pulse 59 09/15/21 21:19 Resp 16 09/15/21 21:19 BP 132/71 09/15/21 21:19 Pulse Ox 94 09/15/21 21:19 BMI result Body Mass Index 31.8 Const: General: cooperative, healthy appearing, comfortable, no acute distress, well developed, alert, awake and Physically active Orientation/consciousness: oriented to time and patient oriented x3 HEENT: Head: Yes normal to inspection, Yes No palpable skull fracture present, Yes normocephalic, Yes atraumatic and No abrasion Eyes: General: appearance normal, both eyes and all related structures Neck: Neck: Yes normal visual inspection, Yes full ROM, Yes no lymphadenopathy, Yes no meningeal signs, Yes trachea midline, Yes supple, No anterior neck swelling and No tender Chest: Chest palpation & inspection: normal inspection of the chest and normal palpation of entire chest wall Resp: Effort & Inspection: normal respiratory effort and able to speak in complete sentences Auscultation: clear to auscultation bilaterally Cardio: Jugular venous distension: no JVD Heart sounds: S1 normal heart sound present and S2 normal heart sound present GI: Inspection: Yes normal to inspection and No abdominal wall ecchymosis Palpation (GI): Soft to palpation, not firm, nontender, no guarding and not rigid : General: No CVA tenderness and Yes no CVA tenderness Back/Spine/Pelvis: Back: no CVA tenderness, No CVA tenderness and No back tenderness Skin: General skin exam: no rashes or lesions noted and elasticity normal Neuro: Other: patient presently alert oriented x3. Negative slurred speech. Negative facial droop. All extremities equal strength 5+. Finger to nose and rapid hand movement intact. Negative Romberg. Negative pronator drift. NIH score 0 General: oriented to time, patient oriented x3, gait normal, tone normal, moves all extremities, Normal light touch and pain sensation, no meningeal signs, no focal motor deficits, CN's II-XI intact bilaterally and decrease sensation to monofilament Extrem: General: Yes normal to inspection and Yes full ROM Psych: Other: auditory hallucinations. Suicidal/homicidal ideation. Appearance: grossly normal and well kempt Course Course Course Narrative: Vital signs are stable. Will do basic labs. Basic EKG. Reevaluation(s) Reevaluation #1: labs are normal. Urine shows fentanyl. Patient awaiting crisis evaluation. Time: 15:03 Reevaluation #2: Patient is inpatient bed search. Time: 21:58 MDM - Psych MDM Narrative Medical decision making narrative: depression Lab Data Result diagrams: 09/15/21 11:48 09/15/21 11:48 Labs: Lab Results 09/15/21 09/15/21 09/15/21 Range/Units 11:48 11:48 11:48 WBC 5.4 (4.8-10.8) X10*3/uL RBC 4.94 (4.60-5.80) X10*6/uL Hgb 15.4 (14.0-18.0) g/dl Hct 46.7 (42.0-52.0) % MCV 94.5 (80.0-98.0) fL MCH 31.2 (27.0-33.0) pg MCHC 33.0 (31.0-36.0) g/dl RDW 12.7 (11.0-16.0) % Plt Count 224 (160-400) X10*3/uL MPV 9.2 L (9.4-12.4) fL Immature Gran % (Auto) 0.2 (0.0-0.4) % Neut % (Auto) 67.8 (45-73) % Lymph % (Auto) 23.3 (20-40) % [place] % (Auto) 7.0 (2-11) % Eos % (Auto) 1.1 (0-4) % Baso % (Auto) 0.6 (0-2) % Lymph # (Auto) 1.3 (1.2-4.9) X10*3/uL [place] # (Auto) 0.4 (0.1-1.2) X10*3/uL Eos # (Auto) 0.1 (0.0-0.4) X10*3/uL Baso # (Auto) 0.0 (0.0-0.2) X10*3/uL Abs Immat Gran (auto) 0.01 (0.00-0.03) X10*3/uL Absolute Neuts (auto) 3.7 (2.0-8.3) x10*3/uL Absolute Nucleated RBC 0.000 (0.0-0.012) X10*3/uL Nucleated RBC % (auto) 0.0 (0.0-0.2) /100WBC Sodium 144 (135-145) mmol/L Potassium 4.2 (3.3-5.1) mmol/L Chloride 109 H (96-108) mmol/L Carbon Dioxide 28 (22-29) mmol/L Anion Gap 11 L (12-20) BUN 31 H (9-16) mg/dL Creatinine 1.19 (0.5-1.4) mg/dL Estim Creat Clear Calc 50.6 Estimated GFR 60 Random Glucose 73 (60-115) mg/dL Calcium 9.5 (8.4-10.2) mg/dL Total Bilirubin 0.5 (0.0-1.0) mg/dL AST 20 (5-37) U/L ALT 31 (0-40) U/L Alkaline Phosphatase 58 (39-117) U/L Total Protein 7.5 (6.5-8.0) g/dL Albumin 4.4 (3.5-5.0) g/dL Urine Color Urine Appearance Urine pH (5.0-8.0) Ur Specific [place] (1.005-1.025) Urine Protein (NEG-TRACE) MG/DL Urine Glucose (UA) (NEG) MG/DL Urine Ketones (NEG) MG/DL Urine Blood (NEG) Urine Nitrite (NEG) Ur Leukocyte Esterase (NEG) Urine Opiates Screen (Not Detect) Urine Fentanyl Screen (Not Detect) Ur Barbiturates Screen (Not Detect) Ur Phencyclidine Scrn (Not Detect) Ur Amphetamines Screen (Not Detect) U Benzodiazepines Scrn (Not Detect) Urine Cocaine Screen (Not Detect) U Marijuana (THC) Screen (Not Detect) Ethyl Alcohol mg/dL COVID-19 (FRANCESCO) Negative (Negative) COVID-19 Clin Com See Note 09/15/21 09/15/21 09/15/21 Range/Units 11:48 13:21 13:21 WBC (4.8-10.8) X10*3/uL RBC (4.60-5.80) X10*6/uL Hgb (14.0-18.0) g/dl Hct (42.0-52.0) % MCV (80.0-98.0) fL MCH (27.0-33.0) pg MCHC (31.0-36.0) g/dl RDW (11.0-16.0) % Plt Count (160-400) X10*3/uL MPV (9.4-12.4) fL Immature Gran % (Auto) (0.0-0.4) % Neut % (Auto) (45-73) % Lymph % (Auto) (20-40) % [place] % (Auto) (2-11) % Eos % (Auto) (0-4) % Baso % (Auto) (0-2) % Lymph # (Auto) (1.2-4.9) X10*3/uL [place] # (Auto) (0.1-1.2) X10*3/uL Eos # (Auto) (0.0-0.4) X10*3/uL Baso # (Auto) (0.0-0.2) X10*3/uL Abs Immat Gran (auto) (0.00-0.03) X10*3/uL Absolute Neuts (auto) (2.0-8.3) x10*3/uL Absolute Nucleated RBC (0.0-0.012) X10*3/uL Nucleated RBC % (auto) (0.0-0.2) /100WBC Sodium (135-145) mmol/L Potassium (3.3-5.1) mmol/L Chloride (96-108) mmol/L Carbon Dioxide (22-29) mmol/L Anion Gap (12-20) BUN (9-16) mg/dL Creatinine (0.5-1.4) mg/dL Estim Creat Clear Calc Estimated GFR Random Glucose (60-115) mg/dL Calcium (8.4-10.2) mg/dL Total Bilirubin (0.0-1.0) mg/dL AST (5-37) U/L ALT (0-40) U/L Alkaline Phosphatase (39-117) U/L Total Protein (6.5-8.0) g/dL Albumin (3.5-5.0) g/dL Urine Color YELLOW Urine Appearance CLEAR Urine pH 5.0 (5.0-8.0) Ur Specific [place] >= 1.030 H (1.005-1.025) Urine Protein NEG (NEG-TRACE) MG/DL Urine Glucose (UA) NEG (NEG) MG/DL Urine Ketones NEG (NEG) MG/DL Urine Blood NEG (NEG) Urine Nitrite NEG (NEG) Ur Leukocyte Esterase NEG (NEG) Urine Opiates Screen Not Detected (Not Detect) Urine Fentanyl Screen POSITIVE H (Not Detect) Ur Barbiturates Screen Not Detected (Not Detect) Ur Phencyclidine Scrn Not Detected (Not Detect) Ur Amphetamines Screen Not Detected (Not Detect) U Benzodiazepines Scrn Not Detected (Not Detect) Urine Cocaine Screen Not Detected (Not Detect) U Marijuana (THC) Screen Not Detected (Not Detect) Ethyl Alcohol < 10 mg/dL COVID-19 (FRANCESCO) (Negative) COVID-19 Clin Com Discharge Plan Discharge Clinical Impression: Depression Patient Disposition: Still a Patient Prescriptions: No Action finasteride [Proscar] 5 mg Tablet 5 mg PO DAILY 60 Days Qty: 60 0RF memantine [Namenda] 10 mg Tablet 10 mg PO BID 60 Days Qty: 120 0RF donepezil 10 mg Tablet 10 mg PO BEDTIME 60 Days Qty: 60 0RF apixaban 5 mg Tablet 5 mg PO BID 60 Days Qty: 120 0RF olanzapine 5 mg tablet 5 mg PO BID PRN (Reason: Psychosis) 0RF fluticasone propionate 50 mcg/actuation spray,suspension 2 spray intranasal DAILY 0RF escitalopram oxalate 5 mg tablet 1 tab PO DAILY 0RF risperidone 1 mg tablet 3 mg PO BEDTIME 0RF
[2021-09-15 11:53] LABS: MANUAL DIFF FLAG NO
[2021-09-15 11:54] LABS: Basophils Percent Auto 0.6 % (0-2); Eosinophils Absolute Auto 0.1 X10*3/uL (0.0-0.4); Eosinophils Percent Auto 1.1 % (0-4); Hematocrit 46.7 % (42.0-52.0); Hemoglobin 15.4 g/dl (14.0-18.0); Imm Gran Abs Auto 0.01 X10*3/uL (0.00-0.03); Imm Gran Pct Auto 0.2 % (0.0-0.4); Lymphocytes Absolute Auto 1.3 X10*3/uL (1.2-4.9); Lymphocytes Percent Auto 23.3 % (20-40); Mean Corpuscular Hemoglobin 31.2 pg (27.0-33.0); Mean Corpuscular Volume 94.5 fL (80.0-98.0); Mean Platelet Volume 9.2 fL (9.4-12.4); Monocytes Absolute Auto 0.4 X10*3/uL (0.1-1.2); Neutrophils Absolute Auto 3.7 x10*3/uL (2.0-8.3); Neutrophils Percent Auto 67.8 % (45-73); Platelet Count 224 X10*3/uL (160-400); Red Blood Count 4.94 X10*6/uL (4.60-5.80); Red Cell Distribution Width 12.7 % (11.0-16.0); White Blood Count 5.4 X10*3/uL (4.8-10.8)
[2021-09-15 12:15] LABS: Ethanol < 10 mg/dL
[2021-09-15 12:19] LABS: Alanine Aminotransferase 31 U/L (0-40); Albumin Level 4.4 g/dL (3.5-5.0); Alkaline Phosphatase 58 U/L (39-117); Anion Gap 11 (12-20); Aspartate Amino Transferase 20 U/L (5-37); Bilirubin Total 0.5 mg/dL (0.0-1.0); Blood Urea Nitrogen 31 mg/dL (9-16); COVID-19 Test Negative (Negative); Calcium 9.5 mg/dL (8.4-10.2); Carbon Dioxide 28 mmol/L (22-29); Chloride 109 mmol/L (96-108); Creatinine Clr Calc Pharmacy 50.6; Estimated Glomerular Filt Rate 60; Glucose Random 73 mg/dL (60-115); Potassium 4.2 mmol/L (3.3-5.1); Sodium 144 mmol/L (135-145); Total Protein 7.5 g/dL (6.5-8.0)
[2021-09-15 13:33] LABS: Appearance Urine CLEAR; Color Urine YELLOW; Glucose Urine UA NEG (NEG); Leukocyte Esterase Urine NEG (NEG); Nitrite Urine NEG (NEG); Specific Gravity - Urine >= 1.030 (1.005-1.025); Urine Blood NEG (NEG); Urine Ketones NEG (NEG); Urine Protein NEG (NEG-TRACE)
[2021-09-15 13:56] LABS: Amphetamine Screen Urine Not Detected (Not Detect); Barbiturates, Urine Not Detected (Not Detect); Benzodiazepines Screen Urine Not Detected (Not Detect); Cannabinoid Screen Urine Not Detected (Not Detect); Cocaine Screen Urine Not Detected (Not Detect); Fentanyl, urine POSITIVE (Not Detect); Opiate Screen Urine Not Detected (Not Detect); Phencyclidine Screen Urine Not Detected (Not Detect)
[2021-09-15 15:35] VITALS: BP 130/69; PULSE 57; RESP 16; TEMP 36.2; O2SAT 96
[2021-09-15 19:12] VITALS: BP 149/73; PULSE 84; RESP 16; O2SAT 94
--- NOTE | 2021-09-15 20:03 | PHA.MEDREC ---
Pharmacy Consult ? Medication Reconciliation Pharmacy has completed the medication reconciliation. Spoke with the patients who assists him with all his medications. She stated that the patient recently started olanzapine 5 mg bid as needed about 3 days ago but has been giving it to him around the clock because of his current state.
[2021-09-15 21:19] VITALS: BP 132/71; PULSE 59; RESP 16; TEMP 36.4; O2SAT 94
[2021-09-15] MEDS: risperiDONE 3 MG TABLET PO (22:06)
[2021-09-15] MEDS: Escitalopram Oxalate 5 MG TABLET PO (22:06)
[2021-09-15] MEDS: Memantine HCl 10 MG TABLET PO (22:06)
[2021-09-15] MEDS: Donepezil HCl 10 MG TABLET PO (22:06)
[2021-09-15] MEDS: Apixaban 5 MG TABLET PO (22:06)
[2021-09-16 08:25] VITALS: BP 130/66; PULSE 68; RESP 18; TEMP 36.4; O2SAT 96
[2021-09-16] MEDS: Memantine HCl 10 MG TABLET PO ×2 (08:36→21:48)
[2021-09-16] MEDS: Finasteride 5 MG TABLET PO (08:36)
[2021-09-16] MEDS: Apixaban 5 MG TABLET PO ×2 (08:36→21:48)
--- NOTE | 2021-09-16 09:10 | PC.NURSE ---
pt pale, abd soft, flat nontender, c/o nausea/vomiting and abd pain, states last drink was 3 days ago. no tremors to finger tip noted. alert, oriented x3. iv established medicated per jul.
[2021-09-16 11:45] VITALS: BP 146/71; PULSE 61; RESP 16; TEMP 36.7; O2SAT 95
[2021-09-16 15:09] VITALS: BP 166/78; PULSE 74; RESP 18; O2SAT 95
[2021-09-16 16:42] VITALS: BP 150/77; PULSE 72; RESP 16; TEMP 36.8; O2SAT 94
[2021-09-16] MEDS: OLANZapine 5 MG TABLET PO (21:11)
[2021-09-16] MEDS: Escitalopram Oxalate 5 MG TABLET PO (21:48)
[2021-09-16] MEDS: risperiDONE 3 MG TABLET PO (21:48)
--- NOTE | 2021-09-16 21:58 | PC.NURSE ---
Pt having increasing confusion asking if his is in the next room, saying that he hid his pills under his sheets, but Tahir NESS checked and there were no hdden pills. Pt has been wandering from bed about every 5 minutes and needs frequent redirection. Bed alarm armed at this time. Will continue to monitor and ask for a pt observever if behaviors continue.
[2021-09-16] MEDS: Donepezil HCl 10 MG TABLET PO (22:12)
[2021-09-16 22:48] VITALS: BP 137/72; PULSE 75; RESP 16; TEMP 36.7; O2SAT 94
--- NOTE | 2021-09-16 23:37 | PC.NURSE ---
Pt resting better now, wandering behaviors have stopped. Will continue to monitor.
[2021-09-17 00:35] VITALS: BP 164/83; PULSE 73; RESP 16; TEMP 36.6; O2SAT 95
[2021-09-17 04:22] VITALS: BP 139/82; PULSE 67; RESP 15; O2SAT 91
[2021-09-17] MEDS: OLANZapine 5 MG TABLET PO ×2 (05:45→13:28)
--- NOTE | 2021-09-17 08:10 | PC.NURSE ---
Pt awake, sitting in bed eating breakfast at this time, calm and cooperative. Oriented to person and place at this time. at bedside, call oro within reach, bed alarm on. Will continue to monitor.
[2021-09-17 08:28] VITALS: BP 149/71; PULSE 66; RESP 16; O2SAT 94
[2021-09-17] MEDS: Memantine HCl 10 MG TABLET PO ×2 (09:10→21:00)
[2021-09-17] MEDS: Finasteride 5 MG TABLET PO (09:10)
[2021-09-17] MEDS: Apixaban 5 MG TABLET PO ×2 (09:10→20:59)
--- NOTE | 2021-09-17 14:40 | PC.NURSE ---
Report to [facility] on [facility]
[2021-09-17 15:21] LABS: Appearance Urine CLEAR; Color Urine YELLOW; Glucose Urine UA NEG (NEG); Leukocyte Esterase Urine NEG (NEG); Nitrite Urine NEG (NEG); Specific Gravity - Urine 1.015 (1.005-1.025); UACC Culture Trigger NO; Urine Blood 1+ (NEG); Urine Ketones NEG (NEG); Urine Protein NEG (NEG-TRACE)
[2021-09-17 15:36] LABS: Bacteria Urine TRACE /LPF; Squamous Epithelial Cell Urine TRACE /LPF; WBC Urine 0 /HPF (0-4)
[2021-09-17 16:41] VITALS: BP 156/78; PULSE 67; RESP 16; TEMP 36.4; O2SAT 96
--- NOTE | 2021-09-17 18:41 | PC.ADMIT ---
pt is a 75 y/o male who presented to the ED with disturbed mood and increased command Hallucination. Pt was admitted on unit with diagnosis of F43.20 - Adjustment Disorders. Pt was admitted on CV by healthcare proxy. Pt's is HCP; she participated in admission assessment. Pt is A+O x2, pt lacks complete insight to situation. Vital signs upon admission stable with noted elevated Bp. Pt appears calm, pleasant, cooperative. pt observed to be forgetful and as a result, filled this RN in on history. Per , pt was noted to have changes in mood with +command hallucinations; pt states The voices are asking me to hurt my and I don't want to do that. reports pt has had a previous psych admission and was sectioned at that time and dischharged to assisted living facility. pt later left facility after 4 months and returned home where he has been these past months. Per , pt had med changes 2 months ago and noticed a change in behavior around that time. pt's reports both her and noticed a change in his gait. This RN noticed pt slightly shuffling when ambulating. pt has a Hx of enlarged prostate, Alzheimer's, and GERD. reports pt is continent of urine and bowel and independent ADLs.. Pt's skin intact. Pt's reports no issues with sleep.
[2021-09-17] MEDS: Donepezil HCl 10 MG TABLET PO (20:59)
[2021-09-17] MEDS: Escitalopram Oxalate 5 MG TABLET PO (20:59)
[2021-09-17] MEDS: risperiDONE 3 MG TABLET PO (21:00)
[2021-09-17 21:38] VITALS: BP 133/69; PULSE 70; RESP 18; TEMP 36.3; O2SAT 94
[2021-09-18] MEDS: traZODone HCL 50 MG TABLET PO (01:14)
[2021-09-18] MEDS: hydrOXYzine HCL 25 MG TABLET PO (01:14)
[2021-09-18 07:20] VITALS: BP 131/68; PULSE 66; RESP 14; TEMP 36.4; O2SAT 95
[2021-09-18] MEDS: Finasteride 5 MG TABLET PO (08:29)
[2021-09-18] MEDS: Apixaban 5 MG TABLET PO ×2 (08:30→20:57)
[2021-09-18] MEDS: Fluticasone Propionate Nasal 16 GM SPRAY 2 SPRAY NOSTRIL-B (08:30)
[2021-09-18] MEDS: Memantine HCl 10 MG TABLET PO ×2 (08:30→20:57)
[2021-09-18 09:27] LABS: Alanine Aminotransferase 32 U/L (0-40); Albumin Level 4.1 g/dL (3.5-5.0); Alkaline Phosphatase 57 U/L (39-117); Anion Gap 14 (12-20); Aspartate Amino Transferase 20 U/L (5-37); Bilirubin Total 0.8 mg/dL (0.0-1.0); Blood Urea Nitrogen 22 mg/dL (9-16); Calcium 9.6 mg/dL (8.4-10.2); Carbon Dioxide 29 mmol/L (22-29); Chloride 108 mmol/L (96-108); Cholesterol 203 mg/dL; Creatinine Clr Calc Pharmacy 48.2; Estimated Glomerular Filt Rate 56; Glucose Fasting 101 mg/dL (60-99); HDL Cholesterol 46 mg/dL; LDL Cholesterol Calculated 143 mg/dl; Sodium 146 mmol/L (135-145); Total Protein 6.8 g/dL (6.5-8.0); Triglycerides 74 mg/dL
--- NOTE | 2021-09-18 12:55 | HO.PSYADMNOT ---
[facility] Date of Service: 09/18/21 Chief Complaint: psychosis Sources of Information: patient interviewed and chart reviewed HPI Subjective Notes: [place] Warning and Conditional Voluntary Narrative: The patient is a 75-year-old male, , father of adult children, retired, living in retired community, referred from the emergency room of our hospital for psychotic symptoms elicited by auditory hallucinations with derogatory content and voices commanding him to hurt himself or his . The crisis report also states that he was having visual hallucinations of monsters in his room. The patient is very well known by the service since he was admitted a few months ago for exacerbation of confusion, psychosis and dysphoria. He was diagnosed with dementia with behavioral disturbances and mood symptoms. According to the chart, the patient after discharge was fully compliant with treatment. On interview, the patient cannot remember why he was brought into the hospital he was sleepy at times and he was a very poor historian. He adamantly denies suicidal ideation or auditory hallucinations but he looked very confused. Past Psychiatric History: PAST PSYCH HX: - Prior admission here last year - Dementia dxed 3 years ago. - No known substance use. Medical Evaluation Reviewed: Yes [facility] Medical History Agitation due to dementia Dementia with behavioral disturbance DVT (deep venous thrombosis) Family History: No known mental health hx in the family. Social History: . Second marriage. Lives in a condo in [place] with and dog. [place] vet. 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 Says he has 2 daughters. Substance History: Denies Trauma History: denies Diagnostics Vital Signs (24Hr): Vital Signs - 24 hr 09/17/21 16:41 09/17/21 21:38 09/18/21 07:20 Temperature 97.6 F 97.3 F 97.5 F Pulse Rate 67 70 66 Respiratory Rate 16 18 14 Blood Pressure 156/78 H 133/69 131/68 Pulse Oximetry 96 94 95 BMI result Body Mass Index 31.8 Labs Results: 09/15/21 11:48 09/18/21 08:13 Labs: Laboratory Results - last 48 hr 09/17/21 09/18/21 15:13 08:13 Sodium 146 H Potassium 5.0 Chloride 108 Carbon Dioxide 29 Anion Gap 14 BUN 22 H Creatinine 1.25 Estim Creat Clear Calc 48.2 Estimated GFR 56 Fasting Glucose 101 H Calcium 9.6 Total Bilirubin 0.8 AST 20 ALT 32 Alkaline Phosphatase 57 Total Protein 6.8 Albumin 4.1 Triglycerides 74 Cholesterol 203 LDL Cholesterol, Calc 143 HDL Cholesterol 46 Urine Color YELLOW Urine Appearance CLEAR Urine pH 6.0 Ur Specific [place] 1.015 Urine Protein NEG Urine Glucose (UA) NEG Urine Ketones NEG Urine Blood 1+ H Urine Nitrite NEG Ur Leukocyte Esterase NEG Urine RBC 5-9 H Urine WBC 0 Ur Squamous Epith Cells TRACE Urine Bacteria TRACE Meds/Allergies Meds Home Medications Acetaminophen (Acetaminophen 325 Mg Tablet) 650 mg PO Q6H PRN PRN Reason: Headache/Pain Mild Scale (1-3) Al Hydroxide/Mg Hydroxide (Magnesium Hydrox/Alum Hydrox 30 Ml Oral.Susp) 30 ml PO Q6H PRN PRN Reason: Heartburn/Nausea Apixaban (Apixaban 5 Mg Tablet) 5 mg PO BID [facility] Last Admin: 09/18/21 08:30 Dose: 5 mg Documented by: Donepezil HCl (Donepezil Hcl 10 Mg Tablet) 10 mg PO BEDTIME [facility] Last Admin: 09/17/21 20:59 Dose: 10 mg Documented by: Escitalopram Oxalate (Escitalopram Oxalate 5 Mg Tablet) 5 mg PO BEDTIME [facility] Last Admin: 09/17/21 20:59 Dose: 5 mg Documented by: Finasteride (Finasteride 5 Mg Tablet) 5 mg PO DAILY [facility] Last Admin: 09/18/21 08:29 Dose: 5 mg Documented by: Fluticasone Propionate (Fluticasone Propionate Nasal 16 Gm [place]) 2 spray NOSTRIL-B DAILY [facility] Last Admin: 09/18/21 08:30 Dose: 2 spray Documented by: Hydroxyzine HCl (Hydroxyzine Hcl 25 Mg Tablet) 25 mg PO BEDTIME PRN PRN Reason: Anxiety Last Admin: 09/18/21 01:14 Dose: 25 mg Documented by: Magnesium Hydroxide (Milk Of Magnesia 30 Ml Oral.Susp) 30 ml PO DAILY PRN PRN Reason: Constipation Memantine (Memantine Hcl 10 Mg Tablet) 10 mg PO BID [facility] Last Admin: 09/18/21 08:30 Dose: 10 mg Documented by: Olanzapine (Olanzapine 5 Mg Tablet) 5 mg PO BID PRN PRN Reason: Psychosis Last Admin: 09/17/21 13:28 Dose: 5 mg Documented by: Pharmacy Consult (Consult Rx Perform Med Rec) 1 each MISCELLANE ONCE PRN PRN Reason: Consult order Risperidone (Risperidone 3 Mg Tablet) 3 mg PO BEDTIME [facility] Last Admin: 09/17/21 21:00 Dose: 3 mg Documented by: Trazodone HCl (Trazodone Hcl 50 Mg Tablet) 50 mg PO BEDTIME PRN PRN Reason: Insomnia Last Admin: 09/18/21 01:14 Dose: 50 mg Documented by: Allergies Allergies Allergy/AdvReac Type Severity Reaction Status Date / Time No Known Allergies Allergy Verified 01/27/21 11:46 Mental Status Exam Mental Status Exam Patient Appearance: Appropriate Patient Orientation: Person and Situation Level of Consciousness: Awake Patient Behavior: Guarded, Passive and Suspicious Mood Description: Withdrawn Affect Description: Constricted Patient Cognition Impaired: Yes Ability to Follow Directions: Fair Speech Pattern: Impoverished and Delayed Hallucinations: Auditory and Visual Delusions: Paranoid Ideation Thought Process: Distracted and Confusion Thought Content: positive for [place] and positive for Poverty of Content Judgement: Poor Assessment & Plan Assessment & Plan (1) Psychosis: Status: Acute Code(s): F29 - Unspecified psychosis not due to a substance or known physiological condition (2) Dementia with behavioral disturbance: Status: Acute Code(s): F03.91 - Unspecified dementia with behavioral disturbance Plan The patient is an elderly male with a history of dementia admitted for exacerbation of psychotic symptoms elicited by auditory and visual hallucinations commanding to hurt himself and his . The patient is very well known by this services he was admitted here last year. Patient educated on: diagnosis Informed Consent: further education needed Reason for continued inpatient stay Substantial Risk for: harm to self, harm to others, inability to function, rapid decompensation and med/psych decompensation
[2021-09-18 18:00] VITALS: BP 164/79; PULSE 80; RESP 17; TEMP 37.1; O2SAT 97
[2021-09-18] MEDS: risperiDONE 3 MG TABLET PO (20:57)
[2021-09-18] MEDS: Escitalopram Oxalate 5 MG TABLET PO (20:57)
[2021-09-18] MEDS: Donepezil HCl 10 MG TABLET PO (20:58)
[2021-09-19 06:00] VITALS: BP 147/74; PULSE 94; RESP 12; TEMP 36.8; O2SAT 93
[2021-09-19 07:00] VITALS: BMI 31.3
--- NOTE | 2021-09-19 08:12 | P.PNPSI_ITS ---
Subjective Subjective Date of Service: 09/19/21 Reason For Visit: psychosis Subjective Notes: Conditional Voluntary Interim History: The nursing staff reported the patient has been over-sedated yesterday in the morning. He was falling sleep in the common areas. He was fully compliant with treatment. In the evening, the patient reported the staff that he had and pleasant thoughts but refused to elaborate. On interview, the patient denies new symptoms he cannot remember the we had an interaction yesterday. He looked cheerful and pleasantly confused. Mental Status Exam Mental Status Exam Patient Appearance: Appropriate Patient Orientation: Person and Situation Level of Consciousness: Awake Patient Behavior: Guarded and Asleep Mood Description: Withdrawn Affect Description: Constricted Patient Cognition Impaired: Yes Ability to Follow Directions: Good Speech Pattern: Soft-Spoken Hallucinations: None Delusions: Paranoid Ideation Thought Process: Distracted and Evasive Thought Content: positive for [place] and positive for Poverty of Content Judgement: Fair Diagnostics Vital Signs (24Hr): Vital Signs - 24 hr 09/18/21 18:00 Temperature 98.8 F Pulse Rate 80 Respiratory Rate 17 Blood Pressure 164/79 H Pulse Oximetry 97 BMI result Body Mass Index 31.8 Labs Results: 09/15/21 11:48 09/18/21 08:13 Labs: Laboratory Results - last 48 hr 09/17/21 09/18/21 15:13 08:13 Sodium 146 H Potassium 5.0 Chloride 108 Carbon Dioxide 29 Anion Gap 14 BUN 22 H Creatinine 1.25 Estim Creat Clear Calc 48.2 Estimated GFR 56 Fasting Glucose 101 H Calcium 9.6 Total Bilirubin 0.8 AST 20 ALT 32 Alkaline Phosphatase 57 Total Protein 6.8 Albumin 4.1 Triglycerides 74 Cholesterol 203 LDL Cholesterol, Calc 143 HDL Cholesterol 46 Urine Color YELLOW Urine Appearance CLEAR Urine pH 6.0 Ur Specific [place] 1.015 Urine Protein NEG Urine Glucose (UA) NEG Urine Ketones NEG Urine Blood 1+ H Urine Nitrite NEG Ur Leukocyte Esterase NEG Urine RBC 5-9 H Urine WBC 0 Ur Squamous Epith Cells TRACE Urine Bacteria TRACE Imaging Radiology Impressions: ITS Impressions Head CT 09/18/21 15:47 IMPRESSION: No acute intracranial pathology. Medications Medications Current Medications Acetaminophen (Acetaminophen 325 Mg Tablet) 650 mg PO Q6H PRN PRN Reason: Headache/Pain Mild Scale (1-3) Al Hydroxide/Mg Hydroxide (Magnesium Hydrox/Alum Hydrox 30 Ml Oral.Susp) 30 ml PO Q6H PRN PRN Reason: Heartburn/Nausea Apixaban (Apixaban 5 Mg Tablet) 5 mg PO BID [facility] Last Admin: 09/18/21 20:57 Dose: 5 mg Documented by: Donepezil HCl (Donepezil Hcl 10 Mg Tablet) 10 mg PO BEDTIME [facility] Last Admin: 09/18/21 20:58 Dose: 10 mg Documented by: Escitalopram Oxalate (Escitalopram Oxalate 5 Mg Tablet) 5 mg PO BEDTIME [facility] Last Admin: 09/18/21 20:57 Dose: 5 mg Documented by: Finasteride (Finasteride 5 Mg Tablet) 5 mg PO DAILY [facility] Last Admin: 09/18/21 08:29 Dose: 5 mg Documented by: Fluticasone Propionate (Fluticasone Propionate Nasal 16 Gm [place]) 2 spray NOSTRIL-B DAILY [facility] Last Admin: 09/18/21 08:30 Dose: 2 spray Documented by: Hydroxyzine HCl (Hydroxyzine Hcl 25 Mg Tablet) 25 mg PO BEDTIME PRN PRN Reason: Anxiety Last Admin: 09/18/21 01:14 Dose: 25 mg Documented by: Magnesium Hydroxide (Milk Of Magnesia 30 Ml Oral.Susp) 30 ml PO DAILY PRN PRN Reason: Constipation Memantine (Memantine Hcl 10 Mg Tablet) 10 mg PO BID [facility] Last Admin: 09/18/21 20:57 Dose: 10 mg Documented by: Olanzapine (Olanzapine 5 Mg Tablet) 5 mg PO BID PRN PRN Reason: Psychosis Last Admin: 09/17/21 13:28 Dose: 5 mg Documented by: Pharmacy Consult (Consult Rx Perform Med Rec) 1 each MISCELLANE ONCE PRN PRN Reason: Consult order Risperidone (Risperidone 3 Mg Tablet) 3 mg PO BEDTIME [facility] Last Admin: 09/18/21 20:57 Dose: 3 mg Documented by: Trazodone HCl (Trazodone Hcl 50 Mg Tablet) 50 mg PO BEDTIME PRN PRN Reason: Insomnia Last Admin: 09/18/21 01:14 Dose: 50 mg Documented by: Allergies Allergies Allergy/AdvReac Type Severity Reaction Status Date / Time No Known Allergies Allergy Verified 01/27/21 11:46 Assessment & Plan Assessment & Plan (1) Psychosis: Status: Acute Code(s): F29 - Unspecified psychosis not due to a substance or known physiological condition (2) Dementia with behavioral disturbance: Status: Acute Code(s): F03.91 - Unspecified dementia with behavioral disturbance Plan The patient is an elderly male with a history of dementia admitted for exacerbation of psychotic symptoms elicited by auditory and visual hallucinations commanding to hurt himself and his . The patient is very well known by this services he was admitted here last year. I spent __20____ minutes with the patient and/or on the patient floor today, greater than?50% of which was spent counseling/coordinating care. Reason for contiued inpatient stay Substantial Risk for: harm to self, harm to others, inability to function, rapid decompensation and med/psych decompensation
[2021-09-19] MEDS: Finasteride 5 MG TABLET PO (08:14)
[2021-09-19] MEDS: Apixaban 5 MG TABLET PO ×2 (08:14→20:17)
[2021-09-19] MEDS: Fluticasone Propionate Nasal 16 GM SPRAY 2 SPRAY NOSTRIL-B (08:14)
[2021-09-19] MEDS: Memantine HCl 10 MG TABLET PO ×2 (08:14→20:18)
[2021-09-19 18:00] VITALS: BP 148/69; PULSE 85; RESP 16; TEMP 36.3; O2SAT 96
[2021-09-19] MEDS: Donepezil HCl 10 MG TABLET PO (20:17)
[2021-09-19] MEDS: risperiDONE 3 MG TABLET PO (20:18)
[2021-09-19] MEDS: traZODone HCL 50 MG TABLET PO (20:18)
[2021-09-19] MEDS: Escitalopram Oxalate 5 MG TABLET PO (20:19)
[2021-09-20 06:00] VITALS: BP 174/83; PULSE 99; RESP 18; TEMP 36.6; O2SAT 96
[2021-09-20] MEDS: Apixaban 5 MG TABLET PO ×2 (07:54→20:29)
[2021-09-20] MEDS: Memantine HCl 10 MG TABLET PO ×2 (07:54→20:30)
[2021-09-20] MEDS: Finasteride 5 MG TABLET PO (07:54)
[2021-09-20] MEDS: Fluticasone Propionate Nasal 16 GM SPRAY 2 SPRAY NOSTRIL-B (07:56)
--- NOTE | 2021-09-20 14:38 | P.PNPSI_ITS ---
Subjective Subjective Date of Service: 09/20/21 Reason For Visit: psychosis Subjective Notes: Conditional Voluntary Interim History: The nursing staff reported the patient has been disoriented which poor short- term memory but very easily redirectable. He was seen that he is slightly over- sedated. The nursing staff also reported his blood pressure has been consistently going up in the last 2 days. Today we had a family meeting with his and we gather more collateral information. On interview, the patient looks pleasantly confused and he cannot remember the we discussed his situation yesterday. Mental Status Exam Mental Status Exam Patient Appearance: Well Grooomed Patient Orientation: Person and Situation Level of Consciousness: Awake Patient Behavior: Talkative, Passive and Suspicious Mood Description: Appropriate Affect Description: Constricted Patient Cognition Impaired: Yes Ability to Follow Directions: Good Speech Pattern: Clear Hallucinations: Auditory Delusions: Paranoid Ideation Thought Process: Distracted Thought Content: positive for [place] and positive for Poverty of Content Judgement: Fair Diagnostics Vital Signs (24Hr): Vital Signs - 24 hr 09/19/21 18:00 09/20/21 06:00 Temperature 97.3 F 97.8 F Pulse Rate 85 99 Respiratory Rate 16 18 Blood Pressure 148/69 H 174/83 H Pulse Oximetry 96 96 BMI result Body Mass Index 31.3 Labs Results: 09/15/21 11:48 09/18/21 08:13 Imaging Radiology Impressions: ITS Impressions Head CT 09/18/21 15:47 IMPRESSION: No acute intracranial pathology. Medications Medications Current Medications Acetaminophen (Acetaminophen 325 Mg Tablet) 650 mg PO Q6H PRN PRN Reason: Headache/Pain Mild Scale (1-3) Al Hydroxide/Mg Hydroxide (Magnesium Hydrox/Alum Hydrox 30 Ml Oral.Susp) 30 ml PO Q6H PRN PRN Reason: Heartburn/Nausea Apixaban (Apixaban 5 Mg Tablet) 5 mg PO BID [facility] Last Admin: 09/20/21 07:54 Dose: 5 mg Documented by: Donepezil HCl (Donepezil Hcl 10 Mg Tablet) 10 mg PO BEDTIME [facility] Last Admin: 09/19/21 20:17 Dose: 10 mg Documented by: Escitalopram Oxalate (Escitalopram Oxalate 5 Mg Tablet) 5 mg PO BEDTIME [facility] Last Admin: 09/19/21 20:19 Dose: 5 mg Documented by: Finasteride (Finasteride 5 Mg Tablet) 5 mg PO DAILY [facility] Last Admin: 09/20/21 07:54 Dose: 5 mg Documented by: Fluticasone Propionate (Fluticasone Propionate Nasal 16 Gm [place]) 2 spray NOSTRIL-B DAILY [facility] Last Admin: 09/20/21 07:56 Dose: 2 spray Documented by: Hydroxyzine HCl (Hydroxyzine Hcl 25 Mg Tablet) 25 mg PO BEDTIME PRN PRN Reason: Anxiety Last Admin: 09/18/21 01:14 Dose: 25 mg Documented by: Magnesium Hydroxide (Milk Of Magnesia 30 Ml Oral.Susp) 30 ml PO DAILY PRN PRN Reason: Constipation Memantine (Memantine Hcl 10 Mg Tablet) 10 mg PO BID [facility] Last Admin: 09/20/21 07:54 Dose: 10 mg Documented by: Olanzapine (Olanzapine 5 Mg Tablet) 5 mg PO BID PRN PRN Reason: Psychosis Last Admin: 09/17/21 13:28 Dose: 5 mg Documented by: Pharmacy Consult (Consult Rx Perform Med Rec) 1 each MISCELLANE ONCE PRN PRN Reason: Consult order Risperidone (Risperidone 3 Mg Tablet) 3 mg PO BEDTIME [facility] Last Admin: 09/19/21 20:18 Dose: 3 mg Documented by: Trazodone HCl (Trazodone Hcl 50 Mg Tablet) 50 mg PO BEDTIME PRN PRN Reason: Insomnia Last Admin: 09/19/21 20:18 Dose: 50 mg Documented by: Allergies Allergies Allergy/AdvReac Type Severity Reaction Status Date / Time No Known Allergies Allergy Verified 01/27/21 11:46 Assessment & Plan Assessment & Plan (1) Psychosis: Status: Acute Code(s): F29 - Unspecified psychosis not due to a substance or known physiological condition (2) Dementia with behavioral disturbance: Status: Acute Code(s): F03.91 - Unspecified dementia with behavioral disturbance Plan The patient is an elderly male with a history of dementia admitted for exacerbation of psychotic symptoms elicited by auditory and visual hallucinations commanding to hurt himself and his . The patient is very well known by this services he was admitted here last year. Plan 1. Lower Risperdal to 2 mg p.o. q.h.s. and start Risperdal 0.5 p.o. b.i.d. to avoid a big dose of Risperdal at night at overdose him next in morning. 2. Discontinue Lexapro 5 mg p.o. q.h.s.. 3. Start Cymbalta 20 mg p.o. b.i.d. to target depression and anxiety. I spent ___20___ minutes with the patient and/or on the patient floor today, greater than?50% of which was spent counseling/coordinating care. Reason for contiued inpatient stay Substantial Risk for: inability to function, rapid decompensation and med/psych decompensation
[2021-09-20] MEDS: risperiDONE 0.5 MG TABLET PO (16:31)
[2021-09-20 18:00] VITALS: BP 158/74; PULSE 84; RESP 18; TEMP 36; O2SAT 95
[2021-09-20] MEDS: risperiDONE 2 MG TABLET PO (20:29)
[2021-09-20] MEDS: DULoxetine HCl 20 MG CAPSULE.DR PO (20:29)
[2021-09-20] MEDS: Donepezil HCl 10 MG TABLET PO (20:30)
[2021-09-21 06:00] VITALS: BP 165/77; PULSE 91; RESP 16; TEMP 36.3; O2SAT 95
[2021-09-21] MEDS: Memantine HCl 10 MG TABLET PO ×2 (08:26→20:17)
[2021-09-21] MEDS: risperiDONE 0.5 MG TABLET PO ×2 (08:26→17:09)
[2021-09-21] MEDS: DULoxetine HCl 20 MG CAPSULE.DR PO ×2 (08:26→20:17)
[2021-09-21] MEDS: Fluticasone Propionate Nasal 16 GM SPRAY 2 SPRAY NOSTRIL-B (08:26)
[2021-09-21] MEDS: Apixaban 5 MG TABLET PO ×2 (08:26→20:17)
[2021-09-21] MEDS: Finasteride 5 MG TABLET PO (08:26)
--- NOTE | 2021-09-21 10:40 | PC.NURSE ---
Pt. reports that he is hearing voices that are telling him to kill himself. He states that he does not have a plan, and does not want to . I have too much to live for . This RN contacted Dr. Conde via tiger text and asked about placing him on 5 minute checks. This RN recommended this and communicated this to Dr. This RN educated pt. on continuing to be honest so that he can get the care that he needs. Pt. verbalized understanding. This RN educated pt. on coming to staff should he start to feel as though he does want to hurt himself. Pt. verbalized understanding.
[2021-09-21 18:00] VITALS: BP 153/81; PULSE 88; RESP 18; TEMP 35.9; O2SAT 97
[2021-09-21] MEDS: risperiDONE 2 MG TABLET PO (20:17)
[2021-09-21] MEDS: Donepezil HCl 10 MG TABLET PO (20:17)
--- NOTE | 2021-09-21 21:59 | HO.PSYCHPN ---
Subjective Subjective Date of Service: 09/21/21 Reason For Visit: psychosis Interim History: Patient seen and discussed. Maggy was reporting to RN he was having AH with command but denied that to me. He reports that since he told the RN's he has not had them. Denies active SI. Patient is pleasant. Review of Systems Review of Systems auditory hallucinations. Suicidal/homicidal ideation Yes all other systems are reviewed and are negative Mental Status Exam Mental Status Exam Patient Appearance: Well Grooomed Patient Orientation: Person and Situation Level of Consciousness: Awake Patient Behavior: Talkative, Passive and Suspicious Mood Description: Appropriate Affect Description: Constricted Patient Cognition Impaired: Yes Ability to Follow Directions: Good Speech Pattern: Clear Hallucinations: Auditory Diagnostics Vital Signs (24Hr): Vital Signs - 24 hr 09/21/21 06:00 Temperature 97.4 F Pulse Rate 91 Respiratory Rate 16 Blood Pressure 165/77 H Pulse Oximetry 95 BMI result Body Mass Index 31.3 Labs Results: 09/15/21 11:48 09/18/21 08:13 Imaging Radiology Impressions: ITS Impressions Head CT 09/18/21 15:47 IMPRESSION: No acute intracranial pathology. Medications Medications Current Medications Acetaminophen (Acetaminophen 325 Mg Tablet) 650 mg PO Q6H PRN PRN Reason: Headache/Pain Mild Scale (1-3) Al Hydroxide/Mg Hydroxide (Magnesium Hydrox/Alum Hydrox 30 Ml Oral.Susp) 30 ml PO Q6H PRN PRN Reason: Heartburn/Nausea Apixaban (Apixaban 5 Mg Tablet) 5 mg PO BID [facility] Last Admin: 09/21/21 20:17 Dose: 5 mg Documented by: Donepezil HCl (Donepezil Hcl 10 Mg Tablet) 10 mg PO BEDTIME [facility] Last Admin: 09/21/21 20:17 Dose: 10 mg Documented by: Duloxetine HCl (Duloxetine Hcl 20 Mg Capsule.Dr) 20 mg PO BID [facility] Last Admin: 09/21/21 20:17 Dose: 20 mg Documented by: Finasteride (Finasteride 5 Mg Tablet) 5 mg PO DAILY [facility] Last Admin: 09/21/21 08:26 Dose: 5 mg Documented by: Fluticasone Propionate (Fluticasone Propionate Nasal 16 Gm [place]) 2 spray NOSTRIL-B DAILY [facility] Last Admin: 09/21/21 08:26 Dose: 2 spray Documented by: Hydroxyzine HCl (Hydroxyzine Hcl 25 Mg Tablet) 25 mg PO BEDTIME PRN PRN Reason: Anxiety Last Admin: 09/18/21 01:14 Dose: 25 mg Documented by: Magnesium Hydroxide (Milk Of Magnesia 30 Ml Oral.Susp) 30 ml PO DAILY PRN PRN Reason: Constipation Memantine (Memantine Hcl 10 Mg Tablet) 10 mg PO BID [facility] Last Admin: 09/21/21 20:17 Dose: 10 mg Documented by: Olanzapine (Olanzapine 5 Mg Tablet) 5 mg PO BID PRN PRN Reason: Psychosis Last Admin: 09/17/21 13:28 Dose: 5 mg Documented by: Pharmacy Consult (Consult Rx Perform Med Rec) 1 each MISCELLANE ONCE PRN PRN Reason: Consult order Risperidone (Risperidone 2 Mg Tablet) 2 mg PO BEDTIME [facility] Last Admin: 09/21/21 20:17 Dose: 2 mg Documented by: Risperidone (Risperidone 0.5 Mg Tablet) 0.5 mg PO BID@0800,1500 [facility] Last Admin: 09/21/21 17:09 Dose: 0.5 mg Documented by: Trazodone HCl (Trazodone Hcl 50 Mg Tablet) 50 mg PO BEDTIME PRN PRN Reason: Insomnia Last Admin: 09/19/21 20:18 Dose: 50 mg Documented by: Allergies Allergies Allergy/AdvReac Type Severity Reaction Status Date / Time No Known Allergies Allergy Verified 01/27/21 11:46 Assessment & Plan Assessment & Plan (1) Psychosis: Status: Acute Code(s): F29 - Unspecified psychosis not due to a substance or known physiological condition (2) Dementia with behavioral disturbance: Status: Acute Code(s): F03.91 - Unspecified dementia with behavioral disturbance Plan The patient is an elderly male with a history of dementia admitted for exacerbation of psychotic symptoms elicited by auditory and visual hallucinations commanding to hurt himself and his . The patient is very well known by this services he was admitted here last year. Plan 1. Lower Risperdal to 2 mg p.o. q.h.s. and start Risperdal 0.5 p.o. b.i.d. to avoid a big dose of Risperdal at night at overdose him next in morning. 2. Discontinue Lexapro 5 mg p.o. q.h.s.. 3. Start Cymbalta 20 mg p.o. b.i.d. to target depression and anxiety. Continue current plan. I spent minutes with the patient and/or on the patient floor today, greater than?50% of which was spent counseling/coordinating care. Reason for contiued inpatient stay Substantial Risk for: inability to function and rapid decompensation
[2021-09-21] MEDS: traZODone HCL 50 MG TABLET PO (22:20)
[2021-09-22] MEDS: Finasteride 5 MG TABLET PO (08:01)
[2021-09-22] MEDS: Apixaban 5 MG TABLET PO ×2 (08:02→20:24)
[2021-09-22] MEDS: DULoxetine HCl 20 MG CAPSULE.DR PO ×2 (08:02→20:23)
[2021-09-22] MEDS: Memantine HCl 10 MG TABLET PO ×2 (08:02→20:23)
[2021-09-22] MEDS: risperiDONE 0.5 MG TABLET PO ×2 (08:03→15:49)
[2021-09-22] MEDS: Fluticasone Propionate Nasal 16 GM SPRAY 2 SPRAY NOSTRIL-B (08:03)
[2021-09-22 08:07] VITALS: BP 174/81; PULSE 93; RESP 18; TEMP 36.4; O2SAT 97
--- NOTE | 2021-09-22 17:31 | HO.PSYCHPN ---
Subjective Subjective Date of Service: 09/22/21 Reason For Visit: psychosis Interim History: Patient seen and discussed. patient reports he has no AH today. He reports he is feeling well. He is pleasant and cooperative. Compliant with treatment and medications. Discussed with RN taking him off 5 minute checks and back on 15 min checks. Denies active SI. Review of Systems Review of Systems auditory hallucinations. Suicidal/homicidal ideation Yes all other systems are reviewed and are negative Mental Status Exam Mental Status Exam Patient Appearance: Well Grooomed Patient Orientation: Person and Situation Level of Consciousness: Awake Patient Behavior: Passive and Suspicious Mood Description: Appropriate Affect Description: Constricted Patient Cognition Impaired: Yes Ability to Follow Directions: Good Speech Pattern: Clear Diagnostics Vital Signs (24Hr): Vital Signs - 24 hr 09/21/21 18:00 09/22/21 08:07 Temperature 96.7 F L 97.5 F Pulse Rate 88 93 Respiratory Rate 18 18 Blood Pressure 153/81 H 174/81 H Pulse Oximetry 97 97 BMI result Body Mass Index 31.3 Labs Results: 09/15/21 11:48 09/18/21 08:13 Imaging Radiology Impressions: ITS Impressions Head CT 09/18/21 15:47 IMPRESSION: No acute intracranial pathology. Medications Medications Current Medications Acetaminophen (Acetaminophen 325 Mg Tablet) 650 mg PO Q6H PRN PRN Reason: Headache/Pain Mild Scale (1-3) Al Hydroxide/Mg Hydroxide (Magnesium Hydrox/Alum Hydrox 30 Ml Oral.Susp) 30 ml PO Q6H PRN PRN Reason: Heartburn/Nausea Apixaban (Apixaban 5 Mg Tablet) 5 mg PO BID [facility] Last Admin: 09/22/21 08:02 Dose: 5 mg Documented by: Donepezil HCl (Donepezil Hcl 10 Mg Tablet) 10 mg PO BEDTIME [facility] Last Admin: 09/21/21 20:17 Dose: 10 mg Documented by: Duloxetine HCl (Duloxetine Hcl 20 Mg Capsule.Dr) 20 mg PO BID [facility] Last Admin: 09/22/21 08:02 Dose: 20 mg Documented by: Finasteride (Finasteride 5 Mg Tablet) 5 mg PO DAILY [facility] Last Admin: 09/22/21 08:01 Dose: 5 mg Documented by: Fluticasone Propionate (Fluticasone Propionate Nasal [address] [place]) 2 spray NOSTRIL-B DAILY [facility] Last Admin: 09/22/21 08:03 Dose: 2 spray Documented by: Hydroxyzine HCl (Hydroxyzine Hcl 25 Mg Tablet) 25 mg PO BEDTIME PRN PRN Reason: Anxiety Last Admin: 09/18/21 01:14 Dose: 25 mg Documented by: Magnesium Hydroxide (Milk Of Magnesia 30 Ml Oral.Susp) 30 ml PO DAILY PRN PRN Reason: Constipation Memantine (Memantine Hcl 10 Mg Tablet) 10 mg PO BID [facility] Last Admin: 09/22/21 08:02 Dose: 10 mg Documented by: Olanzapine (Olanzapine 5 Mg Tablet) 5 mg PO BID PRN PRN Reason: Psychosis Last Admin: 09/17/21 13:28 Dose: 5 mg Documented by: Pharmacy Consult (Consult Rx Perform Med Rec) 1 each MISCELLANE ONCE PRN PRN Reason: Consult order Risperidone (Risperidone 2 Mg Tablet) 2 mg PO BEDTIME [facility] Last Admin: 09/21/21 20:17 Dose: 2 mg Documented by: Risperidone (Risperidone 0.5 Mg Tablet) 0.5 mg PO BID@0800,1500 [facility] Last Admin: 09/22/21 15:49 Dose: 0.5 mg Documented by: Trazodone HCl (Trazodone Hcl 50 Mg Tablet) 50 mg PO BEDTIME PRN PRN Reason: Insomnia Last Admin: 09/21/21 22:20 Dose: 50 mg Documented by: Allergies Allergies Allergy/AdvReac Type Severity Reaction Status Date / Time No Known Allergies Allergy Verified 01/27/21 11:46 Assessment & Plan Assessment & Plan (1) Psychosis: Status: Acute Code(s): F29 - Unspecified psychosis not due to a substance or known physiological condition (2) Dementia with behavioral disturbance: Status: Acute Code(s): F03.91 - Unspecified dementia with behavioral disturbance Plan The patient is an elderly male with a history of dementia admitted for exacerbation of psychotic symptoms elicited by auditory and visual hallucinations commanding to hurt himself and his . The patient is very well known by this services he was admitted here last year. Plan 1. Lower Risperdal to 2 mg p.o. q.h.s. and start Risperdal 0.5 p.o. b.i.d. to avoid a big dose of Risperdal at night at overdose him next in morning. 2. Discontinue Lexapro 5 mg p.o. q.h.s.. 3. Start Cymbalta 20 mg p.o. b.i.d. to target depression and anxiety. Continue current plan. 09/22 Continue treatment plan. 15 min checks. I spent minutes with the patient and/or on the patient floor today, greater than?50% of which was spent counseling/coordinating care. Reason for contiued inpatient stay Substantial Risk for: inability to function and rapid decompensation
[2021-09-22] MEDS: Acetaminophen 325 MG TABLET 650 MG PO (18:10)
--- NOTE | 2021-09-22 18:33 | PC.NURSE ---
in to visit at 1800 and reported pt stated, They are saying to get out. Pt referring to voices per . asked if voices were referring to her when saying get out and pt replied, I think so. concerned pt is not being truthful when staff is asking about AH and pt denies. states pt is on same dosage of Risperdal and feels Risperdal may not be correct med for pt. This narrative writer met with pt after left unit for 1:1 contact. Pt denied AH/VH, denied SI/HI.
[2021-09-22 19:35] VITALS: BP 173/76; PULSE 90; TEMP 36.5; O2SAT 95
[2021-09-22] MEDS: risperiDONE 2 MG TABLET PO (20:23)
[2021-09-22] MEDS: traZODone HCL 50 MG TABLET PO (20:24)
[2021-09-22] MEDS: Donepezil HCl 10 MG TABLET PO (20:24)
[2021-09-23 06:00] VITALS: BP 165/82; PULSE 116; RESP 16; TEMP 36.3; O2SAT 93
[2021-09-23] MEDS: Memantine HCl 10 MG TABLET PO ×2 (08:17→20:50)
[2021-09-23] MEDS: Fluticasone Propionate Nasal 16 GM SPRAY 2 SPRAY NOSTRIL-B (08:17)
[2021-09-23] MEDS: Finasteride 5 MG TABLET PO (08:17)
[2021-09-23] MEDS: DULoxetine HCl 20 MG CAPSULE.DR PO (08:17)
[2021-09-23] MEDS: risperiDONE 0.5 MG TABLET PO (08:17)
[2021-09-23] MEDS: Apixaban 5 MG TABLET PO ×2 (08:17→20:51)
[2021-09-23] MEDS: hydrOXYzine HCL 25 MG TABLET PO (08:43)
[2021-09-23] MEDS: OLANZapine 5 MG TABLET PO (08:43)
--- NOTE | 2021-09-23 13:42 | HO.PSYCHPN ---
Subjective Subjective Date of Service: 09/23/21 Reason For Visit: psychosis Subjective Notes: Conditional Voluntary Interim History: The nursisng staff reported that the patient has been extremely forgetful, confused at times, easily redirectable. His BP has increased slightly in the last days. The staff reported that he doesn't complained of AH since he doesn't want to let staff know about his AH. On interveiw, denies new symptoms Mental Status Exam Mental Status Exam Patient Appearance: Appropriate Patient Orientation: Person Level of Consciousness: Awake Patient Behavior: Guarded Mood Description: Calm Affect Description: Constricted Patient Cognition Impaired: Yes Ability to Follow Directions: Good Speech Pattern: Clear Hallucinations: Auditory Delusions: Paranoid Ideation Thought Process: Distracted and Evasive Thought Content: positive for [place] Judgement: Fair Diagnostics Vital Signs (24Hr): Vital Signs - 24 hr 09/22/21 19:35 09/23/21 06:00 Temperature 97.7 F 97.4 F Pulse Rate 90 116 H Respiratory Rate 16 Blood Pressure 173/76 H 165/82 H Pulse Oximetry 95 93 BMI result Body Mass Index 31.3 Labs Results: 09/15/21 11:48 09/18/21 08:13 Imaging Radiology Impressions: ITS Impressions Head CT 09/18/21 15:47 IMPRESSION: No acute intracranial pathology. Medications Medications Current Medications Acetaminophen (Acetaminophen 325 Mg Tablet) 650 mg PO Q6H PRN PRN Reason: Headache/Pain Mild Scale (1-3) Last Admin: 09/22/21 18:10 Dose: 650 mg Documented by: Al Hydroxide/Mg Hydroxide (Magnesium Hydrox/Alum Hydrox 30 Ml Oral.Susp) 30 ml PO Q6H PRN PRN Reason: Heartburn/Nausea Apixaban (Apixaban 5 Mg Tablet) 5 mg PO BID [facility] Last Admin: 09/23/21 08:17 Dose: 5 mg Documented by: Donepezil HCl (Donepezil Hcl 10 Mg Tablet) 10 mg PO BEDTIME [facility] Last Admin: 09/22/21 20:24 Dose: 10 mg Documented by: Duloxetine HCl (Duloxetine Hcl 20 Mg Capsule.Dr) 20 mg PO BID [facility] Last Admin: 09/23/21 08:17 Dose: 20 mg Documented by: Finasteride (Finasteride 5 Mg Tablet) 5 mg PO DAILY [facility] Last Admin: 09/23/21 08:17 Dose: 5 mg Documented by: Fluticasone Propionate (Fluticasone Propionate Nasal 16 Gm [place]) 2 spray NOSTRIL-B DAILY [facility] Last Admin: 09/23/21 08:17 Dose: 2 spray Documented by: Hydroxyzine HCl (Hydroxyzine Hcl 25 Mg Tablet) 25 mg PO BEDTIME PRN PRN Reason: Anxiety Last Admin: 09/23/21 08:43 Dose: 25 mg Documented by: Magnesium Hydroxide (Milk Of Magnesia 30 Ml Oral.Susp) 30 ml PO DAILY PRN PRN Reason: Constipation Memantine (Memantine Hcl 10 Mg Tablet) 10 mg PO BID [facility] Last Admin: 09/23/21 08:17 Dose: 10 mg Documented by: Olanzapine (Olanzapine 5 Mg Tablet) 5 mg PO BID PRN PRN Reason: Psychosis Last Admin: 09/23/21 08:43 Dose: 5 mg Documented by: Pharmacy Consult (Consult Rx Perform Med Rec) 1 each MISCELLANE ONCE PRN PRN Reason: Consult order Risperidone (Risperidone 2 Mg Tablet) 2 mg PO BEDTIME [facility] Last Admin: 09/22/21 20:23 Dose: 2 mg Documented by: Risperidone (Risperidone 0.5 Mg Tablet) 0.5 mg PO BID@0800,1500 [facility] Last Admin: 09/23/21 08:17 Dose: 0.5 mg Documented by: Trazodone HCl (Trazodone Hcl 50 Mg Tablet) 50 mg PO BEDTIME PRN PRN Reason: Insomnia Last Admin: 09/22/21 20:24 Dose: 50 mg Documented by: Allergies Allergies Allergy/AdvReac Type Severity Reaction Status Date / Time No Known Allergies Allergy Verified 01/27/21 11:46 Assessment & Plan Assessment & Plan (1) Psychosis: Status: Acute Code(s): F29 - Unspecified psychosis not due to a substance or known physiological condition (2) Dementia with behavioral disturbance: Status: Acute Code(s): F03.91 - Unspecified dementia with behavioral disturbance Plan The patient is an elderly male with a history of dementia admitted for exacerbation of psychotic symptoms elicited by auditory and visual hallucinations commanding to hurt himself and his . The patient is very well known by this services he was admitted here last year. Plan 1. Keep Risperdal to 2 mg p.o. q.h.s. and increase Risperdal up to 1 mg. b.i.d. to target psychosis 2. Discontinue Lexapro 5 mg p.o. q.h.s.. 3. Increase Cymbalta up to 30 mg p.o. b.i.d. to target depression and anxiety. I spent __20____ minutes with the patient and/or on the patient floor today, greater than?50% of which was spent counseling/coordinating care. Reason for contiued inpatient stay Substantial Risk for: inability to function, rapid decompensation and med/psych decompensation
[2021-09-23] MEDS: risperiDONE 1 MG TABLET PO (16:50)
[2021-09-23 20:49] VITALS: BP 174/95; PULSE 89; RESP 17; TEMP 37.1; O2SAT 97
[2021-09-23] MEDS: risperiDONE 2 MG TABLET PO (20:51)
[2021-09-23] MEDS: Donepezil HCl 10 MG TABLET PO (20:51)
[2021-09-23] MEDS: traZODone HCL 50 MG TABLET PO (20:51)
[2021-09-23] MEDS: DULoxetine HCl 30 MG CAPSULE.DR PO (20:51)
[2021-09-24 09:16] VITALS: BP 142/75; PULSE 88; RESP 16; TEMP 36.1; O2SAT 94
[2021-09-24] MEDS: Finasteride 5 MG TABLET PO (09:29)
[2021-09-24] MEDS: risperiDONE 1 MG TABLET PO ×2 (09:29→14:55)
[2021-09-24] MEDS: Apixaban 5 MG TABLET PO ×2 (09:30→20:28)
[2021-09-24] MEDS: DULoxetine HCl 30 MG CAPSULE.DR PO ×2 (09:30→20:28)
[2021-09-24] MEDS: Memantine HCl 10 MG TABLET PO ×2 (09:30→20:28)
[2021-09-24] MEDS: Fluticasone Propionate Nasal 16 GM SPRAY 2 SPRAY NOSTRIL-B (09:33)
[2021-09-24] MEDS: lisinopriL 5 MG TABLET PO (10:37)
--- NOTE | 2021-09-24 15:04 | P.PNPSI_ITS ---
Subjective Subjective Date of Service: 09/24/21 Reason For Visit: psychosis Subjective Notes: Conditional Voluntary Interim History: the nursing staff reported the patient was most of the time in his room, internally preoccupied. He slept very well last night and was pleasant and cooperative but extremely forgetful. He has had blood pressure has been trending up so I started lisinopril. On interview the patient denies new symptoms he looks pleasantly confused Mental Status Exam Mental Status Exam Patient Appearance: Well Grooomed Patient Orientation: Person and Situation Level of Consciousness: Awake Patient Behavior: Dependent and Passive Mood Description: Withdrawn Affect Description: Calm Patient Cognition Impaired: Yes Ability to Follow Directions: Good Speech Pattern: Clear Hallucinations: Auditory Delusions: Paranoid Ideation Thought Process: Distracted and Evasive Thought Content: positive for [place], positive for Poverty of Content and positive for Thought Blocking Judgement: Fair Diagnostics Vital Signs (24Hr): Vital Signs - 24 hr 09/23/21 20:49 09/24/21 09:16 Temperature 98.7 F 97.0 F Pulse Rate 89 88 Respiratory Rate 17 16 Blood Pressure 174/95 H 142/75 H Pulse Oximetry 97 94 BMI result Body Mass Index 31.3 Labs Results: 09/15/21 11:48 09/18/21 08:13 Imaging Radiology Impressions: ITS Impressions Head CT 09/18/21 15:47 IMPRESSION: No acute intracranial pathology. Medications Medications Current Medications Acetaminophen (Acetaminophen 325 Mg Tablet) 650 mg PO Q6H PRN PRN Reason: Headache/Pain Mild Scale (1-3) Last Admin: 09/22/21 18:10 Dose: 650 mg Documented by: Al Hydroxide/Mg Hydroxide (Magnesium Hydrox/Alum Hydrox 30 Ml Oral.Susp) 30 ml PO Q6H PRN PRN Reason: Heartburn/Nausea Apixaban (Apixaban 5 Mg Tablet) 5 mg PO BID [facility] Last Admin: 09/24/21 09:30 Dose: 5 mg Documented by: Donepezil HCl (Donepezil Hcl 10 Mg Tablet) 10 mg PO BEDTIME [facility] Last Admin: 09/23/21 20:51 Dose: 10 mg Documented by: Duloxetine HCl (Duloxetine Hcl 30 Mg Capsule.Dr) 30 mg PO BID [facility] Last Admin: 09/24/21 09:30 Dose: 30 mg Documented by: Finasteride (Finasteride 5 Mg Tablet) 5 mg PO DAILY [facility] Last Admin: 09/24/21 09:29 Dose: 5 mg Documented by: Fluticasone Propionate (Fluticasone Propionate Nasal 16 Gm [place]) 2 spray NOSTRIL-B DAILY [facility] Last Admin: 09/24/21 09:33 Dose: 2 spray Documented by: Hydroxyzine HCl (Hydroxyzine Hcl 25 Mg Tablet) 25 mg PO BEDTIME PRN PRN Reason: Anxiety Last Admin: 09/23/21 08:43 Dose: 25 mg Documented by: Lisinopril (Lisinopril 5 Mg Tablet) 5 mg PO DAILY [facility]; Protocol Magnesium Hydroxide (Milk Of Magnesia 30 Ml Oral.Susp) 30 ml PO DAILY PRN PRN Reason: Constipation Memantine (Memantine Hcl 10 Mg Tablet) 10 mg PO BID [facility] Last Admin: 09/24/21 09:30 Dose: 10 mg Documented by: Olanzapine (Olanzapine 5 Mg Tablet) 5 mg PO BID PRN PRN Reason: Psychosis Last Admin: 09/23/21 08:43 Dose: 5 mg Documented by: Pharmacy Consult (Consult Rx Perform Med Rec) 1 each MISCELLANE ONCE PRN PRN Reason: Consult order Risperidone (Risperidone 2 Mg Tablet) 2 mg PO BEDTIME [facility] Last Admin: 09/23/21 20:51 Dose: 2 mg Documented by: Risperidone (Risperidone 1 Mg Tablet) 1 mg PO BID@0800,1500 [facility] Last Admin: 09/24/21 14:55 Dose: 1 mg Documented by: Trazodone HCl (Trazodone Hcl 50 Mg Tablet) 50 mg PO BEDTIME PRN PRN Reason: Insomnia Last Admin: 09/23/21 20:51 Dose: 50 mg Documented by: Allergies Allergies Allergy/AdvReac Type Severity Reaction Status Date / Time No Known Allergies Allergy Verified 01/27/21 11:46 Assessment & Plan Assessment & Plan (1) Psychosis: Status: Acute Code(s): F29 - Unspecified psychosis not due to a substance or known physiological condition (2) Dementia with behavioral disturbance: Status: Acute Code(s): F03.91 - Unspecified dementia with behavioral disturbance Plan The patient is an elderly male with a history of dementia admitted for exacerbation of psychotic symptoms elicited by auditory and visual hallucinations commanding to hurt himself and his . The patient is very well known by this services he was admitted here last year. Plan 1. keep same treatment I spent ____20__ minutes with the patient and/or on the patient floor today, greater than?50% of which was spent counseling/coordinating care. Reason for contiued inpatient stay Substantial Risk for: inability to function, rapid decompensation and med/psych decompensation
[2021-09-24] MEDS: OLANZapine 5 MG TABLET PO (16:34)
[2021-09-24 19:03] VITALS: BP 125/65; PULSE 87; RESP 16; TEMP 36.6; O2SAT 95
[2021-09-24] MEDS: risperiDONE 2 MG TABLET PO (20:28)
[2021-09-24] MEDS: Donepezil HCl 10 MG TABLET PO (20:28)
[2021-09-24] MEDS: traZODone HCL 50 MG TABLET PO (20:38)
[2021-09-25 07:45] VITALS: BP 168/84; PULSE 80; RESP 16; TEMP 36.6; O2SAT 94
[2021-09-25] MEDS: Finasteride 5 MG TABLET PO (08:00)
[2021-09-25] MEDS: risperiDONE 1 MG TABLET PO (08:01)
[2021-09-25] MEDS: Memantine HCl 10 MG TABLET PO ×2 (08:01→21:06)
[2021-09-25] MEDS: DULoxetine HCl 30 MG CAPSULE.DR PO ×2 (08:02→21:06)
[2021-09-25] MEDS: lisinopriL 5 MG TABLET PO (08:02)
[2021-09-25] MEDS: Apixaban 5 MG TABLET PO ×2 (08:03→21:06)
[2021-09-25] MEDS: Fluticasone Propionate Nasal 16 GM SPRAY 2 SPRAY NOSTRIL-B (08:12)
[2021-09-25] MEDS: OLANZapine 5 MG TABLET PO ×2 (10:43→21:06)
--- NOTE | 2021-09-25 13:43 | P.PNPSI_ITS ---
Subjective Subjective Date of Service: 09/25/21 Reason For Visit: psychosis Subjective Notes: Conditional Voluntary Interim History: the nursing staff reported that the patient had auditory hallucinations yesterday and we needed to use Zyprexa p.r.n.. Auditory hallucinations resolved right away we Zyprexa. On interview the patient denies new symptoms he is very forgetful, confused and pleasant. Today we talked with her and she agreed on the plan to change Risperdal to Zyprexa. Mental Status Exam Mental Status Exam Patient Appearance: Well Grooomed Patient Orientation: Person Level of Consciousness: Disoriented Patient Behavior: Guarded and Suspicious Mood Description: Withdrawn Affect Description: Constricted Patient Cognition Impaired: Yes Speech Pattern: Clear Hallucinations: Auditory Delusions: Paranoid Ideation Judgement: Fair Diagnostics Vital Signs (24Hr): Vital Signs - 24 hr 09/24/21 19:03 09/25/21 07:45 Temperature 97.8 F 97.9 F Pulse Rate 87 80 Respiratory Rate 16 16 Blood Pressure 125/65 168/84 H Pulse Oximetry 95 94 BMI result Body Mass Index 31.3 Labs Results: 09/15/21 11:48 09/18/21 08:13 Imaging Radiology Impressions: ITS Impressions Head CT 09/18/21 15:47 IMPRESSION: No acute intracranial pathology. Medications Medications Current Medications Acetaminophen (Acetaminophen 325 Mg Tablet) 650 mg PO Q6H PRN PRN Reason: Headache/Pain Mild Scale (1-3) Last Admin: 09/22/21 18:10 Dose: 650 mg Documented by: Al Hydroxide/Mg Hydroxide (Magnesium Hydrox/Alum Hydrox 30 Ml Oral.Susp) 30 ml PO Q6H PRN PRN Reason: Heartburn/Nausea Apixaban (Apixaban 5 Mg Tablet) 5 mg PO BID [facility] Last Admin: 09/25/21 08:03 Dose: 5 mg Documented by: Donepezil HCl (Donepezil Hcl 10 Mg Tablet) 10 mg PO BEDTIME [facility] Last Admin: 09/24/21 20:28 Dose: 10 mg Documented by: Duloxetine HCl (Duloxetine Hcl 30 Mg Capsule.Dr) 30 mg PO BID [facility] Last Admin: 09/25/21 08:02 Dose: 30 mg Documented by: Finasteride (Finasteride 5 Mg Tablet) 5 mg PO DAILY [facility] Last Admin: 09/25/21 08:00 Dose: 5 mg Documented by: Fluticasone Propionate (Fluticasone Propionate Nasal 16 Gm [place]) 2 spray NOSTRIL-B DAILY [facility] Last Admin: 09/25/21 08:12 Dose: 2 spray Documented by: Hydroxyzine HCl (Hydroxyzine Hcl 25 Mg Tablet) 25 mg PO BEDTIME PRN PRN Reason: Anxiety Last Admin: 09/23/21 08:43 Dose: 25 mg Documented by: Lisinopril (Lisinopril 5 Mg Tablet) 5 mg PO DAILY [facility]; Protocol Last Admin: 09/25/21 08:02 Dose: 5 mg Documented by: Magnesium Hydroxide (Milk Of Magnesia 30 Ml Oral.Susp) 30 ml PO DAILY PRN PRN Reason: Constipation Memantine (Memantine Hcl 10 Mg Tablet) 10 mg PO BID [facility] Last Admin: 09/25/21 08:01 Dose: 10 mg Documented by: Olanzapine (Olanzapine 5 Mg Tablet) 5 mg PO BID PRN PRN Reason: Psychosis Last Admin: 09/25/21 10:43 Dose: 5 mg Documented by: Olanzapine (Olanzapine 5 Mg Tablet) 5 mg PO BEDTIME [facility] Pharmacy Consult (Consult Rx Perform Med Rec) 1 each MISCELLANE ONCE PRN PRN Reason: Consult order Trazodone HCl (Trazodone Hcl 50 Mg Tablet) 50 mg PO BEDTIME PRN PRN Reason: Insomnia Last Admin: 09/24/21 20:38 Dose: 50 mg Documented by: Allergies Allergies Allergy/AdvReac Type Severity Reaction Status Date / Time No Known Allergies Allergy Verified 01/27/21 11:46 Assessment & Plan Assessment & Plan (1) Psychosis: Status: Acute Code(s): F29 - Unspecified psychosis not due to a substance or known physiological con dition (2) Dementia with behavioral disturbance: Status: Acute Code(s): F03.91 - Unspecified dementia with behavioral disturbance Plan The patient is an elderly male with a history of dementia admitted for exacerbation of psychotic symptoms elicited by auditory and visual hallucinations commanding to hurt himself and his . The patient is very well known by this services he was admitted here last year. Plan 1. Discontinue Risperdal. 2. Zyprexa 5 mg p.o. q.h.s. to target psychosis, he p.r.n. Zyprexa I spent __20____ minutes with the patient and/or on the patient floor today, greater than?50% of which was spent counseling/coordinating care. Reason for contiued inpatient stay Substantial Risk for: inability to function, rapid decompensation and med/psych decompensation
[2021-09-25 19:30] VITALS: BP 150/89; PULSE 110; RESP 17; TEMP 36.8; O2SAT 95
[2021-09-25] MEDS: traZODone HCL 50 MG TABLET PO (21:06)
[2021-09-25] MEDS: Donepezil HCl 10 MG TABLET PO (21:09)
[2021-09-26 06:00] VITALS: BP 153/74; PULSE 87; RESP 16; TEMP 36.4; O2SAT 95
[2021-09-26 07:00] VITALS: BMI 32.8
[2021-09-26] MEDS: Fluticasone Propionate Nasal 16 GM SPRAY 2 SPRAY NOSTRIL-B (08:45)
[2021-09-26] MEDS: Finasteride 5 MG TABLET PO (08:46)
[2021-09-26] MEDS: lisinopriL 5 MG TABLET PO (08:46)
[2021-09-26] MEDS: Memantine HCl 10 MG TABLET PO ×2 (08:46→21:07)
[2021-09-26] MEDS: DULoxetine HCl 30 MG CAPSULE.DR PO ×2 (08:46→21:07)
[2021-09-26] MEDS: Apixaban 5 MG TABLET PO ×2 (08:46→21:07)
--- NOTE | 2021-09-26 14:51 | HO.PSYCHPN ---
Subjective Subjective Date of Service: 09/26/21 Reason For Visit: psychosis Subjective Notes: Conditional Voluntary Interim History: the nursing staff reported the patient has a poor sleep, he needed p.r.n. medications for sleep. He has been in the unit very confused but easily redirectable. The social services designee reported the patient remains paranoid, his reported that he express paranoid delusions. His [place] was eleven over thirty yesterday Mental Status Exam Mental Status Exam Patient Appearance: Well Grooomed Patient Orientation: Person and Situation Level of Consciousness: Awake Patient Behavior: Passive Mood Description: Withdrawn Affect Description: Constricted Patient Cognition Impaired: Yes Ability to Follow Directions: Good Speech Pattern: Clear Hallucinations: Auditory Delusions: Paranoid Ideation Thought Process: Linear Thought Content: positive for [place] Judgement: Fair Diagnostics Vital Signs (24Hr): Vital Signs - 24 hr 09/25/21 19:30 09/26/21 06:00 Temperature 98.2 F 97.5 F Pulse Rate 110 H 87 Respiratory Rate 17 16 Blood Pressure 150/89 H 153/74 H Pulse Oximetry 95 95 BMI result Body Mass Index 32.8 Labs Results: 09/15/21 11:48 09/18/21 08:13 Imaging Radiology Impressions: ITS Impressions Head CT 09/18/21 15:47 IMPRESSION: No acute intracranial pathology. Medications Medications Current Medications Acetaminophen (Acetaminophen 325 Mg Tablet) 650 mg PO Q6H PRN PRN Reason: Headache/Pain Mild Scale (1-3) Last Admin: 09/22/21 18:10 Dose: 650 mg Documented by: Al Hydroxide/Mg Hydroxide (Magnesium Hydrox/Alum Hydrox 30 Ml Oral.Susp) 30 ml PO Q6H PRN PRN Reason: Heartburn/Nausea Apixaban (Apixaban 5 Mg Tablet) 5 mg PO BID [facility] Last Admin: 09/26/21 08:46 Dose: 5 mg Documented by: Donepezil HCl (Donepezil Hcl 10 Mg Tablet) 10 mg PO BEDTIME [facility] Last Admin: 09/25/21 21:09 Dose: 10 mg Documented by: Duloxetine HCl (Duloxetine Hcl 30 Mg Capsule.Dr) 30 mg PO BID [facility] Last Admin: 09/26/21 08:46 Dose: 30 mg Documented by: Finasteride (Finasteride 5 Mg Tablet) 5 mg PO DAILY [facility] Last Admin: 09/26/21 08:46 Dose: 5 mg Documented by: Fluticasone Propionate (Fluticasone Propionate Nasal 16 Gm [place]) 2 spray NOSTRIL-B DAILY [facility] Last Admin: 09/26/21 08:45 Dose: 2 spray Documented by: Hydroxyzine HCl (Hydroxyzine Hcl 25 Mg Tablet) 25 mg PO BEDTIME PRN PRN Reason: Anxiety Last Admin: 09/23/21 08:43 Dose: 25 mg Documented by: Lisinopril (Lisinopril 5 Mg Tablet) 5 mg PO DAILY [facility]; Protocol Last Admin: 09/26/21 08:46 Dose: 5 mg Documented by: Magnesium Hydroxide (Milk Of Magnesia 30 Ml Oral.Susp) 30 ml PO DAILY PRN PRN Reason: Constipation Memantine (Memantine Hcl 10 Mg Tablet) 10 mg PO BID [facility] Last Admin: 09/26/21 08:46 Dose: 10 mg Documented by: Olanzapine (Olanzapine 5 Mg Tablet) 5 mg PO BID PRN PRN Reason: Psychosis Last Admin: 09/25/21 10:43 Dose: 5 mg Documented by: Olanzapine (Olanzapine 5 Mg Tablet) 5 mg PO BEDTIME [facility] Last Admin: 09/25/21 21:06 Dose: 5 mg Documented by: Pharmacy Consult (Consult Rx Perform Med Rec) 1 each MISCELLANE ONCE PRN PRN Reason: Consult order Trazodone HCl (Trazodone Hcl 50 Mg Tablet) 50 mg PO BEDTIME PRN PRN Reason: Insomnia Last Admin: 09/25/21 21:06 Dose: 50 mg Documented by: Allergies Allergies Allergy/AdvReac Type Severity Reaction Status Date / Time No Known Allergies Allergy Verified 01/27/21 11:46 Assessment & Plan Assessment & Plan (1) Psychosis: Status: Acute Code(s): F29 - Unspecified psychosis not due to a substance or known physiological condition (2) Dementia with behavioral disturbance: Status: Acute Code(s): F03.91 - Unspecified dementia with behavioral disturbance Plan The patient is an elderly male with a history of dementia admitted for exacerbation of psychotic symptoms elicited by auditory and visual hallucinations commanding to hurt himself and his . The patient is very well known by this services he was admitted here last year. Plan 1. Discontinue Risperdal. 2. increase Zyprexa up to 7.5 mg p.o. q.h.s. to target psychosis, he p.r.n. Zyprexa I spent ___20___ minutes with the patient and/or on the patient floor today, greater than?50% of which was spent counseling/coordinating care. Reason for contiued inpatient stay Substantial Risk for: inability to function, rapid decompensation and med/psych decompensation
[2021-09-26] MEDS: OLANZapine 5 MG TABLET PO (17:43)
[2021-09-26 18:00] VITALS: BP 135/73; PULSE 100; RESP 19; TEMP 36.3; O2SAT 96
[2021-09-26] MEDS: OLANZapine 7.5 MG TABLET PO (21:08)
[2021-09-26] MEDS: Donepezil HCl 10 MG TABLET PO (21:13)
[2021-09-26] MEDS: traZODone HCL 50 MG TABLET PO (21:26)
[2021-09-27 06:00] VITALS: BP 168/85; PULSE 90; RESP 16; TEMP 36.3; O2SAT 96
[2021-09-27] MEDS: DULoxetine HCl 30 MG CAPSULE.DR PO ×2 (08:03→20:58)
[2021-09-27] MEDS: Memantine HCl 10 MG TABLET PO ×2 (08:03→20:58)
[2021-09-27] MEDS: Apixaban 5 MG TABLET PO ×2 (08:03→20:59)
[2021-09-27] MEDS: lisinopriL 5 MG TABLET PO (08:03)
[2021-09-27] MEDS: Finasteride 5 MG TABLET PO (08:03)
[2021-09-27] MEDS: OLANZapine 5 MG TABLET PO (08:14)
[2021-09-27] MEDS: Fluticasone Propionate Nasal 16 GM SPRAY 2 SPRAY NOSTRIL-B (10:22)
--- NOTE | 2021-09-27 11:21 | HO.PSYCHPN ---
Subjective Subjective Date of Service: 09/27/21 Reason For Visit: psychosis Subjective Notes: Conditional Voluntary Interim History: The nursing staff reported the patient has auditory hallucinations and probably visual hallucinations but he is too guarded and internally preoccupied to disclose his symptoms. Yesterday we increased his Zyprexa up to 7.5 mg p.o. q.h.s.. The nursing staff reported that he is mostly sedated in the morning. The social professionals reported that he talk with his and they are thinking of an assisted living facility arrangement. On interview the patient was pleasantly confused unable to complain of new symptoms. Mental Status Exam Mental Status Exam Patient Appearance: Well Grooomed Patient Orientation: Person Level of Consciousness: Awake Patient Behavior: Cooperative Mood Description: Suspicious and Withdrawn Affect Description: Constricted Patient Cognition Impaired: Yes Ability to Follow Directions: Fair Speech Pattern: Clear Hallucinations: Auditory Delusions: Paranoid Ideation Thought Process: Distracted and Evasive Thought Content: positive for [place] and positive for Poverty of Content Judgement: Fair Diagnostics Vital Signs (24Hr): Vital Signs - 24 hr 09/26/21 18:00 09/27/21 06:00 Temperature 97.4 F 97.3 F Pulse Rate 100 90 Respiratory Rate 19 16 Blood Pressure 135/73 168/85 H Pulse Oximetry 96 96 BMI result Body Mass Index 32.8 Labs Results: 09/15/21 11:48 09/18/21 08:13 Imaging Radiology Impressions: ITS Impressions Head CT 09/18/21 15:47 IMPRESSION: No acute intracranial pathology. Medications Medications Current Medications Acetaminophen (Acetaminophen 325 Mg Tablet) 650 mg PO Q6H PRN PRN Reason: Headache/Pain Mild Scale (1-3) Last Admin: 09/22/21 18:10 Dose: 650 mg Documented by: Al Hydroxide/Mg Hydroxide (Magnesium Hydrox/Alum Hydrox 30 Ml Oral.Susp) 30 ml PO Q6H PRN PRN Reason: Heartburn/Nausea Apixaban (Apixaban 5 Mg Tablet) 5 mg PO BID [facility] Last Admin: 09/27/21 08:03 Dose: 5 mg Documented by: Donepezil HCl (Donepezil Hcl 10 Mg Tablet) 10 mg PO BEDTIME [facility] Last Admin: 09/26/21 21:13 Dose: 10 mg Documented by: Duloxetine HCl (Duloxetine Hcl 30 Mg Capsule.Dr) 30 mg PO BID [facility] Last Admin: 09/27/21 08:03 Dose: 30 mg Documented by: Finasteride (Finasteride 5 Mg Tablet) 5 mg PO DAILY [facility] Last Admin: 09/27/21 08:03 Dose: 5 mg Documented by: Fluticasone Propionate (Fluticasone Propionate Nasal 16 Gm [place]) 2 spray NOSTRIL-B DAILY [facility] Last Admin: 09/27/21 10:22 Dose: 2 spray Documented by: Hydroxyzine HCl (Hydroxyzine Hcl 25 Mg Tablet) 25 mg PO BEDTIME PRN PRN Reason: Anxiety Last Admin: 09/23/21 08:43 Dose: 25 mg Documented by: Lisinopril (Lisinopril 5 Mg Tablet) 5 mg PO DAILY [facility]; Protocol Last Admin: 09/27/21 08:03 Dose: 5 mg Documented by: Magnesium Hydroxide (Milk Of Magnesia 30 Ml Oral.Susp) 30 ml PO DAILY PRN PRN Reason: Constipation Memantine (Memantine Hcl 10 Mg Tablet) 10 mg PO BID [facility] Last Admin: 09/27/21 08:03 Dose: 10 mg Documented by: Olanzapine (Olanzapine 5 Mg Tablet) 5 mg PO BID PRN PRN Reason: Psychosis Last Admin: 09/27/21 08:14 Dose: 5 mg Documented by: Olanzapine (Olanzapine 7.5 Mg Tablet) 7.5 mg PO BEDTIME [facility] Last Admin: 09/26/21 21:08 Dose: 7.5 mg Documented by: Pharmacy Consult (Consult Rx Perform Med Rec) 1 each MISCELLANE ONCE PRN PRN Reason: Consult order Trazodone HCl (Trazodone Hcl 50 Mg Tablet) 50 mg PO BEDTIME PRN PRN Reason: Insomnia Last Admin: 09/26/21 21:26 Dose: 50 mg Documented by: Allergies Allergies Allergy/AdvReac Type Severity Reaction Status Date / Time No Known Allergies Allergy Verified 01/27/21 11:46 Assessment & Plan Assessment & Plan (1) Psychosis: Status: Acute Code(s): F29 - Unspecified psychosis not due to a substance or known physiological condition (2) Dementia with behavioral disturbance: Status: Acute Code(s): F03.91 - Unspecified dementia with behavioral disturbance Plan The patient is an elderly male with a history of dementia admitted for exacerbation of psychotic symptoms elicited by auditory and visual hallucinations commanding to hurt himself and his . The patient is very well known by this services he was admitted here last year. Plan 1. Discontinue Risperdal. 2. increase Zyprexa up to 7.5 mg p.o. q.h.s. to target psychosis, he p.r.n. Zyprexa. 3. Increase Namenda I spent ___20___ minutes with the patient and/or on the patient floor today, greater than?50% of which was spent counseling/coordinating care. Informed Consent: does not understand Reason for contiued inpatient stay Substantial Risk for: inability to function, rapid decompensation and med/psych decompensation
[2021-09-27 19:00] VITALS: BP 176/80; PULSE 75; RESP 16; TEMP 36.9; O2SAT 98
[2021-09-27] MEDS: Donepezil HCl 10 MG TABLET PO (20:58)
[2021-09-27] MEDS: OLANZapine 7.5 MG TABLET PO (20:58)
[2021-09-27] MEDS: amLODIPine Besylate 5 MG TABLET PO (22:17)
[2021-09-27] MEDS: traZODone HCL 50 MG TABLET PO (22:21)
[2021-09-28 06:00] VITALS: BP 160/73; PULSE 78; RESP 18; TEMP 36.4; O2SAT 93
[2021-09-28] MEDS: Finasteride 5 MG TABLET PO (08:07)
[2021-09-28] MEDS: DULoxetine HCl 30 MG CAPSULE.DR PO ×2 (08:08→20:34)
[2021-09-28] MEDS: amLODIPine Besylate 5 MG TABLET PO ×2 (08:08→12:18)
[2021-09-28] MEDS: Memantine HCl 10 MG TABLET PO ×2 (08:08→20:34)
[2021-09-28] MEDS: Apixaban 5 MG TABLET PO ×2 (08:08→20:34)
[2021-09-28] MEDS: lisinopriL 5 MG TABLET PO (08:08)
--- NOTE | 2021-09-28 11:48 | HO.PSYCHPN ---
Subjective Subjective Date of Service: 09/28/21 Reason For Visit: psychosis Interim History: pt found lying on his bed, awake, in his room late morning. had no questions or complaints, no requests. everything's OK. per staff, pt is withdrawn and flat. high BP, norvasc started last night. eye irritation, saline eyedrops ordered. Mental Status Exam Mental Status Exam Patient Appearance: Well Grooomed Patient Orientation: Person Level of Consciousness: Awake Patient Behavior: Cooperative Mood Description: Suspicious and Withdrawn Affect Description: Constricted Patient Cognition Impaired: Yes Ability to Follow Directions: Fair Speech Pattern: Clear Hallucinations: Auditory Delusions: Paranoid Ideation Thought Process: Distracted and Evasive Thought Content: positive for [place] and positive for Poverty of Content Judgement: Fair Diagnostics Vital Signs (24Hr): Vital Signs - 24 hr 09/27/21 19:00 09/28/21 06:00 Temperature 98.4 F 97.6 F Pulse Rate 75 78 Respiratory Rate 16 18 Blood Pressure 176/80 H 160/73 H Pulse Oximetry 98 93 BMI result Body Mass Index 32.8 Labs Results: 09/15/21 11:48 09/18/21 08:13 Imaging Radiology Impressions: ITS Impressions Head CT 09/18/21 15:47 IMPRESSION: No acute intracranial pathology. Medications Medications Current Medications Acetaminophen (Acetaminophen 325 Mg Tablet) 650 mg PO Q6H PRN PRN Reason: Headache/Pain Mild Scale (1-3) Last Admin: 09/22/21 18:10 Dose: 650 mg Documented by: Al Hydroxide/Mg Hydroxide (Magnesium Hydrox/Alum Hydrox 30 Ml Oral.Susp) 30 ml PO Q6H PRN PRN Reason: Heartburn/Nausea Amlodipine Besylate (Amlodipine Besylate 5 Mg Tablet) 5 mg PO DAILY [facility]; Protocol Last Admin: 09/28/21 08:08 Dose: 5 mg Documented by: Apixaban (Apixaban 5 Mg Tablet) 5 mg PO BID [facility] Last Admin: 09/28/21 08:08 Dose: 5 mg Documented by: Artificial Tears (Artificial Tears 15 Ml Drops) 2 drop EYE-RIGHT Q4H PRN PRN Reason: redness, irritation Donepezil HCl (Donepezil Hcl 10 Mg Tablet) 10 mg PO BEDTIME [facility] Last Admin: 09/27/21 20:58 Dose: 10 mg Documented by: Duloxetine HCl (Duloxetine Hcl 30 Mg Capsule.) 30 mg PO BID [facility] Last Admin: 09/28/21 08:08 Dose: 30 mg Documented by: Finasteride (Finasteride 5 Mg Tablet) 5 mg PO DAILY [facility] Last Admin: 09/28/21 08:07 Dose: 5 mg Documented by: Fluticasone Propionate (Fluticasone Propionate Nasal 16 Gm [place]) 2 spray NOSTRIL-B DAILY [facility] Last Admin: 09/28/21 08:20 Dose: Not Given Documented by: Hydroxyzine HCl (Hydroxyzine Hcl 25 Mg Tablet) 25 mg PO BEDTIME PRN PRN Reason: Anxiety Last Admin: 09/23/21 08:43 Dose: 25 mg Documented by: Lisinopril (Lisinopril 5 Mg Tablet) 5 mg PO DAILY [facility]; Protocol Last Admin: 09/28/21 08:08 Dose: 5 mg Documented by: Magnesium Hydroxide (Milk Of Magnesia 30 Ml Oral.Susp) 30 ml PO DAILY PRN PRN Reason: Constipation Memantine (Memantine Hcl 10 Mg Tablet) 10 mg PO BID [facility] Last Admin: 09/28/21 08:08 Dose: 10 mg Documented by: Olanzapine (Olanzapine 5 Mg Tablet) 5 mg PO BID PRN PRN Reason: Psychosis Last Admin: 09/27/21 08:14 Dose: 5 mg Documented by: Olanzapine (Olanzapine 7.5 Mg Tablet) 7.5 mg PO BEDTIME [facility] Last Admin: 09/27/21 20:58 Dose: 7.5 mg Documented by: Pharmacy Consult (Consult Rx Perform Med Rec) 1 each MISCELLANE ONCE PRN PRN Reason: Consult order Trazodone HCl (Trazodone Hcl 50 Mg Tablet) 50 mg PO BEDTIME PRN PRN Reason: Insomnia Last Admin: 09/27/21 22:21 Dose: 50 mg Documented by: Allergies Allergies Allergy/AdvReac Type Severity Reaction Status Date / Time No Known Allergies Allergy Verified 01/27/21 11:46 Assessment & Plan Assessment & Plan (1) Psychosis: Status: Acute Code(s): F29 - Unspecified psychosis not due to a substance or known physiological condition (2) Dementia with behavioral disturbance: Status: Acute Code(s): F03.91 - Unspecified dementia with behavioral disturbance Plan The patient is an elderly male with a history of dementia admitted for exacerbation of psychotic symptoms elicited by auditory and visual hallucinations commanding to hurt himself and his . The patient is very well known by this services he was admitted here last year. Plan 1. Discontinue Risperdal. 2. increase Zyprexa up to 7.5 mg p.o. q.h.s. to target psychosis, he p.r.n. Zyprexa. 3. Increase Namenda I spent ____15__ minutes with the patient and/or on the patient floor today, greater than?50% of which was spent counseling/coordinating care. Reason for contiued inpatient stay Substantial Risk for: harm to self, harm to others and inability to function
[2021-09-28 12:00] VITALS: BP 186/82; PULSE 89; O2SAT 98
[2021-09-28 20:25] VITALS: BP 133/74; PULSE 87; RESP 17; TEMP 36.4; O2SAT 95
[2021-09-28] MEDS: Donepezil HCl 10 MG TABLET PO (20:34)
[2021-09-28] MEDS: OLANZapine 7.5 MG TABLET PO (20:34)
[2021-09-28] MEDS: Artificial Tears 15 ML DROPS 2 DROP EYE-RIGHT (20:39)
[2021-09-29 06:00] VITALS: BP 139/65; PULSE 87; RESP 18; TEMP 35.9; O2SAT 94
[2021-09-29] MEDS: Artificial Tears 15 ML DROPS 2 DROP EYE-RIGHT ×5 (08:41→20:02)
[2021-09-29] MEDS: Fluticasone Propionate Nasal 16 GM SPRAY 2 SPRAY NOSTRIL-B (08:41)
[2021-09-29] MEDS: Apixaban 5 MG TABLET PO ×2 (08:41→20:04)
[2021-09-29] MEDS: DULoxetine HCl 30 MG CAPSULE.DR PO ×2 (08:41→20:04)
[2021-09-29] MEDS: lisinopriL 5 MG TABLET PO (08:41)
[2021-09-29] MEDS: amLODIPine Besylate 10 MG TABLET PO (08:41)
[2021-09-29] MEDS: Finasteride 5 MG TABLET PO (08:41)
[2021-09-29] MEDS: Memantine HCl 10 MG TABLET PO ×2 (09:06→20:04)
--- NOTE | 2021-09-29 11:06 | P.PNPSI_ITS ---
Subjective Subjective Date of Service: 09/29/21 Reason For Visit: psychosis Interim History: pt seen in his room lying in bed awake. he c/o right eye irritation, as if there were sand in his eye. MD examined eyes and saw no signs of redness or irritation. pt agreed to try scheduled drops for now. no other complaints or requests. per staff, pt slept well, confused. right eye read and scratchy. Mental Status Exam Mental Status Exam Patient Appearance: Well Grooomed Patient Orientation: Person Level of Consciousness: Awake Patient Behavior: Cooperative Mood Description: Withdrawn Affect Description: Constricted Patient Cognition Impaired: Yes Ability to Follow Directions: Fair Speech Pattern: Clear Thought Process: Linear Thought Content: positive for [place] and positive for Poverty of Content Judgement: Fair Diagnostics Vital Signs (24Hr): Vital Signs - 24 hr 09/28/21 12:00 09/28/21 20:25 09/29/21 06:00 Temperature 97.5 F 96.7 F L Pulse Rate 89 87 87 Respiratory Rate 17 18 Blood Pressure 186/82 H 133/74 139/65 Pulse Oximetry 98 95 94 BMI result Body Mass Index 32.8 Labs Results: 09/15/21 11:48 09/18/21 08:13 Imaging Radiology Impressions: ITS Impressions Head CT 09/18/21 15:47 IMPRESSION: No acute intracranial pathology. Medications Medications Current Medications Acetaminophen (Acetaminophen 325 Mg Tablet) 650 mg PO Q6H PRN PRN Reason: Headache/Pain Mild Scale (1-3) Last Admin: 09/22/21 18:10 Dose: 650 mg Documented by: Al Hydroxide/Mg Hydroxide (Magnesium Hydrox/Alum Hydrox 30 Ml Oral.Susp) 30 ml PO Q6H PRN PRN Reason: Heartburn/Nausea Amlodipine Besylate (Amlodipine Besylate 10 Mg Tablet) 10 mg PO DAILY [facility]; Protocol Last Admin: 09/29/21 08:41 Dose: 10 mg Documented by: Apixaban (Apixaban 5 Mg Tablet) 5 mg PO BID [facility] Last Admin: 09/29/21 08:41 Dose: 5 mg Documented by: Donepezil HCl (Donepezil Hcl 10 Mg Tablet) 10 mg PO BEDTIME [facility] Last Admin: 09/28/21 20:34 Dose: 10 mg Documented by: Duloxetine HCl (Duloxetine Hcl 30 Mg Capsule.Dr) 30 mg PO BID [facility] Last Admin: 09/29/21 08:41 Dose: 30 mg Documented by: Finasteride (Finasteride 5 Mg Tablet) 5 mg PO DAILY [facility] Last Admin: 09/29/21 08:41 Dose: 5 mg Documented by: Fluticasone Propionate (Fluticasone Propionate Nasal 16 Gm [place]) 2 spray NOSTRIL-B DAILY [facility] Last Admin: 09/29/21 08:41 Dose: 2 spray Documented by: Hydroxyzine HCl (Hydroxyzine Hcl 25 Mg Tablet) 25 mg PO BEDTIME PRN PRN Reason: Anxiety Last Admin: 09/23/21 08:43 Dose: 25 mg Documented by: Lisinopril (Lisinopril 5 Mg Tablet) 5 mg PO DAILY [facility]; Protocol Last Admin: 09/29/21 08:41 Dose: 5 mg Documented by: Magnesium Hydroxide (Milk Of Magnesia 30 Ml Oral.Susp) 30 ml PO DAILY PRN PRN Reason: Constipation Memantine (Memantine Hcl 10 Mg Tablet) 10 mg PO BID [facility] Last Admin: 09/29/21 09:06 Dose: 10 mg Documented by: Olanzapine (Olanzapine 5 Mg Tablet) 5 mg PO BID PRN PRN Reason: Psychosis Last Admin: 09/27/21 08:14 Dose: 5 mg Documented by: Olanzapine (Olanzapine 7.5 Mg Tablet) 7.5 mg PO BEDTIME [facility] Last Admin: 09/28/21 20:34 Dose: 7.5 mg Documented by: Pharmacy Consult (Consult Rx Perform Med Rec) 1 each MISCELLANE ONCE PRN PRN Reason: Consult order Trazodone HCl (Trazodone Hcl 50 Mg Tablet) 50 mg PO BEDTIME PRN PRN Reason: Insomnia Last Admin: 09/27/21 22:21 Dose: 50 mg Documented by: Allergies Allergies Allergy/AdvReac Type Severity Reaction Status Date / Time No Known Allergies Allergy Verified 01/27/21 11:46 Assessment & Plan Assessment & Plan (1) Psychosis: Status: Acute Code(s): F29 - Unspecified psychosis not due to a substance or known physiological condition (2) Dementia with behavioral disturbance: Status: Acute Code(s): F03.91 - Unspecified dementia with behavioral disturbance Plan The patient is an elderly male with a history of dementia admitted for exacerbation of psychotic symptoms elicited by auditory and visual hallucinations commanding to hurt himself and his . The patient is very well known by this services he was admitted here last year. Plan 1. Discontinue Risperdal. 2. increase Zyprexa up to 7.5 mg p.o. q.h.s. to target psychosis, he p.r.n. Zyprexa. 3. Increase Namenda I spent ___15___ minutes with the patient and/or on the patient floor today, greater than?50% of which was spent counseling/coordinating care. Reason for contiued inpatient stay Substantial Risk for: inability to function
[2021-09-29 18:00] VITALS: BP 143/75; PULSE 87; RESP 18; TEMP 36.1; O2SAT 96
[2021-09-29] MEDS: OLANZapine 7.5 MG TABLET PO (20:04)
[2021-09-29] MEDS: Donepezil HCl 10 MG TABLET PO (20:04)
[2021-09-30 06:00] VITALS: BP 138/70; PULSE 78; RESP 18; TEMP 36; O2SAT 95
[2021-09-30] MEDS: Finasteride 5 MG TABLET PO (08:15)
[2021-09-30] MEDS: DULoxetine HCl 30 MG CAPSULE.DR PO ×2 (08:15→21:04)
[2021-09-30] MEDS: Apixaban 5 MG TABLET PO ×2 (08:15→21:04)
[2021-09-30] MEDS: Memantine HCl 10 MG TABLET PO ×2 (08:15→21:04)
[2021-09-30] MEDS: lisinopriL 5 MG TABLET PO (08:16)
[2021-09-30] MEDS: amLODIPine Besylate 10 MG TABLET PO (08:16)
[2021-09-30] MEDS: Artificial Tears 15 ML DROPS 2 DROP EYE-RIGHT ×6 (08:16→21:03)
[2021-09-30] MEDS: OLANZapine 5 MG TABLET PO (11:28)
[2021-09-30] MEDS: Acetaminophen 325 MG TABLET 650 MG PO (11:28)
--- NOTE | 2021-09-30 12:20 | HO.PSYCHPN ---
Subjective Subjective Date of Service: 09/30/21 Reason For Visit: psychosis Subjective Notes: Conditional Voluntary Interim History: the nursing staff reported the patient has been pacing the hallway, mostly in bed most of the time and he watches TV. He denies anxiety and depression and he has slept 7 hours last night. The staff reported that the patient has complained of auditory hallucinations today in the morning but he cannot remember when I approached and asked him. On interview, the patient denies new symptoms he feels okay but he looks confused and easily redirectable. Mental Status Exam Mental Status Exam Patient Appearance: Well Grooomed Patient Orientation: Person and Situation Level of Consciousness: Appropriate Patient Behavior: Cooperative Mood Description: Suspicious and Withdrawn Affect Description: Constricted Patient Cognition Impaired: Yes Ability to Follow Directions: Fair Speech Pattern: Clear Hallucinations: Auditory Delusions: Paranoid Ideation Thought Process: Distracted and Slowed Thinking Thought Content: positive for [place] and positive for Poverty of Content Judgement: Fair Diagnostics Vital Signs (24Hr): Vital Signs - 24 hr 09/29/21 18:00 09/30/21 06:00 Temperature 97 F 96.8 F Pulse Rate 87 78 Respiratory Rate 18 18 Blood Pressure 143/75 H 138/70 Pulse Oximetry 96 95 BMI result Body Mass Index 32.8 Labs Results: 09/15/21 11:48 09/18/21 08:13 Imaging Radiology Impressions: ITS Impressions Head CT 09/18/21 15:47 IMPRESSION: No acute intracranial pathology. Medications Medications Current Medications Acetaminophen (Acetaminophen 325 Mg Tablet) 650 mg PO Q6H PRN PRN Reason: Headache/Pain Mild Scale (1-3) Last Admin: 09/30/21 11:28 Dose: 650 mg Documented by: Al Hydroxide/Mg Hydroxide (Magnesium Hydrox/Alum Hydrox 30 Ml Oral.Susp) 30 ml PO Q6H PRN PRN Reason: Heartburn/Nausea Amlodipine Besylate (Amlodipine Besylate 10 Mg Tablet) 10 mg PO DAILY [facility]; Protocol Last Admin: 09/30/21 08:16 Dose: 10 mg Documented by: Apixaban (Apixaban 5 Mg Tablet) 5 mg PO BID [facility] Last Admin: 09/30/21 08:15 Dose: 5 mg Documented by: Artificial Tears (Artificial Tears 15 Ml Drops) 2 drop EYE-RIGHT Q2H [facility] Last Admin: 09/30/21 08:27 Dose: Not Given Documented by: Donepezil HCl (Donepezil Hcl 10 Mg Tablet) 10 mg PO BEDTIME [facility] Last Admin: 09/29/21 20:04 Dose: 10 mg Documented by: Duloxetine HCl (Duloxetine Hcl 30 Mg Capsule.Dr) 30 mg PO BID [facility] Last Admin: 09/30/21 08:15 Dose: 30 mg Documented by: Finasteride (Finasteride 5 Mg Tablet) 5 mg PO DAILY [facility] Last Admin: 09/30/21 08:15 Dose: 5 mg Documented by: Fluticasone Propionate (Fluticasone Propionate Nasal 16 Gm [place]) 2 spray NOSTRIL-B DAILY [facility] Last Admin: 09/29/21 08:41 Dose: 2 spray Documented by: Hydroxyzine HCl (Hydroxyzine Hcl 25 Mg Tablet) 25 mg PO BEDTIME PRN PRN Reason: Anxiety Last Admin: 09/23/21 08:43 Dose: 25 mg Documented by: Lisinopril (Lisinopril 5 Mg Tablet) 5 mg PO DAILY [facility]; Protocol Last Admin: 09/30/21 08:16 Dose: 5 mg Documented by: Magnesium Hydroxide (Milk Of Magnesia 30 Ml Oral.Susp) 30 ml PO DAILY PRN PRN Reason: Constipation Memantine (Memantine Hcl 10 Mg Tablet) 10 mg PO BID [facility] Last Admin: 09/30/21 08:15 Dose: 10 mg Documented by: Olanzapine (Olanzapine 5 Mg Tablet) 5 mg PO BID PRN PRN Reason: Psychosis Last Admin: 09/30/21 11:28 Dose: 5 mg Documented by: Olanzapine (Olanzapine 7.5 Mg Tablet) 7.5 mg PO BEDTIME [facility] Last Admin: 09/29/21 20:04 Dose: 7.5 mg Documented by: Pharmacy Consult (Consult Rx Perform Med Rec) 1 each MISCELLANE ONCE PRN PRN Reason: Consult order Trazodone HCl (Trazodone Hcl 50 Mg Tablet) 50 mg PO BEDTIME PRN PRN Reason: Insomnia Last Admin: 09/27/21 22:21 Dose: 50 mg Documented by: Allergies Allergies Allergy/AdvReac Type Severity Reaction Status Date / Time No Known Allergies Allergy Verified 01/27/21 11:46 Assessment & Plan Assessment & Plan (1) Psychosis: Status: Acute Code(s): F29 - Unspecified psychosis not due to a substance or known physiological condition (2) Dementia with behavioral disturbance: Status: Acute Code(s): F03.91 - Unspecified dementia with behavioral disturbance Plan The patient is an elderly male with a history of dementia admitted for exacerbation of psychotic symptoms elicited by auditory and visual hallucinations commanding to hurt himself and his . The patient is very well known by this services he was admitted here last year. Plan 1. Keep same treatment. 2. family meeting, the is going to look for longterm facilities pretty soon I spent ___20___ minutes with the patient and/or on the patient floor today, greater than?50% of which was spent counseling/coordinating care. Reason for contiued inpatient stay Substantial Risk for: inability to function, rapid decompensation and med/psych decompensation
[2021-09-30] MEDS: Fluticasone Propionate Nasal 16 GM SPRAY 2 SPRAY NOSTRIL-B (15:53)
[2021-09-30 18:00] VITALS: BP 128/58; PULSE 94; RESP 18; TEMP 36.8; O2SAT 93
[2021-09-30] MEDS: OLANZapine 7.5 MG TABLET PO (21:04)
[2021-09-30] MEDS: hydrOXYzine HCL 25 MG TABLET PO (21:04)
[2021-09-30] MEDS: Donepezil HCl 10 MG TABLET PO (21:04)
[2021-09-30] MEDS: traZODone HCL 50 MG TABLET PO ×2 (21:05→22:06)
[2021-10-01 07:40] VITALS: BP 146/79; PULSE 93; RESP 16; TEMP 36.8; O2SAT 94
[2021-10-01] MEDS: Artificial Tears 15 ML DROPS 2 DROP EYE-RIGHT ×6 (08:15→22:48)
[2021-10-01] MEDS: Finasteride 5 MG TABLET PO (08:16)
[2021-10-01] MEDS: Memantine HCl 10 MG TABLET PO ×2 (08:16→21:19)
[2021-10-01] MEDS: lisinopriL 5 MG TABLET PO (08:16)
[2021-10-01] MEDS: DULoxetine HCl 30 MG CAPSULE.DR PO ×2 (08:16→22:48)
[2021-10-01] MEDS: amLODIPine Besylate 10 MG TABLET PO (08:16)
[2021-10-01] MEDS: Apixaban 5 MG TABLET PO ×2 (08:16→21:18)
[2021-10-01] MEDS: Fluticasone Propionate Nasal 16 GM SPRAY 2 SPRAY NOSTRIL-B (08:20)
[2021-10-01] MEDS: OLANZapine 5 MG TABLET PO (11:04)
--- NOTE | 2021-10-01 13:47 | HO.PSYCHPN ---
Subjective Subjective Date of Service: 10/01/21 Reason For Visit: psychosis Subjective Notes: Conditional Voluntary Interim History: the nursing staff reported the patient complained of auditory hallucinations last night. His vital signs had been stable and he has been mostly isolative in his room most of the day. Today in the morning, the nursing staff reported that he was complaining of auditory hallucinations and we gave him the p.r.n. Zyprexa with limited sedation. On interview, the patient was with his and he deny new symptoms. Slight EPS on physical exam. Review of Systems Review of Systems Yes all other systems are reviewed and are negative Mental Status Exam Mental Status Exam Patient Appearance: Well Grooomed and Appropriate Patient Orientation: Person and Situation Level of Consciousness: Awake Patient Behavior: Guarded Mood Description: Suspicious and Withdrawn Affect Description: Constricted Patient Cognition Impaired: Yes Ability to Follow Directions: Good Speech Pattern: Impoverished Hallucinations: Auditory Delusions: Paranoid Ideation Thought Process: Distracted and Evasive Thought Content: positive for [place] and positive for Poverty of Content Judgement: Fair Diagnostics Vital Signs (24Hr): Vital Signs - 24 hr 09/30/21 18:00 10/01/21 07:40 Temperature 98.2 F 98.3 F Pulse Rate 94 93 Respiratory Rate 18 16 Blood Pressure 128/58 L 146/79 H Pulse Oximetry 93 94 BMI result Body Mass Index 32.8 Labs Results: 09/15/21 11:48 09/18/21 08:13 Imaging Radiology Impressions: ITS Impressions Head CT 09/18/21 15:47 IMPRESSION: No acute intracranial pathology. Medications Medications Current Medications Acetaminophen (Acetaminophen 325 Mg Tablet) 650 mg PO Q6H PRN PRN Reason: Headache/Pain Mild Scale (1-3) Last Admin: 09/30/21 11:28 Dose: 650 mg Documented by: Al Hydroxide/Mg Hydroxide (Magnesium Hydrox/Alum Hydrox 30 Ml Oral.Susp) 30 ml PO Q6H PRN PRN Reason: Heartburn/Nausea Amlodipine Besylate (Amlodipine Besylate 10 Mg Tablet) 10 mg PO DAILY COUNTS [facility]CLUDE 234 BEDS AT THE [facility]; Protocol Last Admin: 10/01/21 08:16 Dose: 10 mg Documented by: Apixaban (Apixaban 5 Mg Tablet) 5 mg PO BID TAMI Last Admin: 10/01/21 08:16 Dose: 5 mg Documented by: Artificial Tears (Artificial Tears 15 Ml Drops) 2 drop EYE-RIGHT Q2H TAMI Last Admin: 10/01/21 08:15 Dose: 2 drop Documented by: Donepezil HCl (Donepezil Hcl 10 Mg Tablet) 10 mg PO BEDTIME COUNTS INCLUDE 234 BEDS AT THE [facility] Last Admin: 09/30/21 21:04 Dose: 10 mg Documented by: Duloxetine HCl (Duloxetine Hcl 30 Mg Capsule.Dr) 30 mg PO BID COUNTS INCLUDE 234 BEDS AT THE [facility] Last Admin: 10/01/21 08:16 Dose: 30 mg Documented by: Finasteride (Finasteride 5 Mg Tablet) 5 mg PO DAILY COUNTS INCLUDE 234 BEDS AT THE [facility] Last Admin: 10/01/21 08:16 Dose: 5 mg Documented by: Fluticasone Propionate (Fluticasone Propionate Nasal 16 Gm [place]) 2 spray NOSTRIL-B DAILY COUNTS INCLUDE 234 BEDS AT THE [facility] Last Admin: 10/01/21 08:20 Dose: 2 spray Documented by: Hydroxyzine HCl (Hydroxyzine Hcl 25 Mg Tablet) 25 mg PO BEDTIME PRN PRN Reason: Anxiety Last Admin: 09/30/21 21:04 Dose: 25 mg Documented by: Lisinopril (Lisinopril 5 Mg Tablet) 5 mg PO DAILY COUNTS INCLUDE 234 BEDS AT THE [facility]; Protocol Last Admin: 10/01/21 08:16 Dose: 5 mg Documented by: Magnesium Hydroxide (Milk Of Magnesia 30 Ml Oral.Susp) 30 ml PO DAILY PRN PRN Reason: Constipation Memantine (Memantine Hcl 10 Mg Tablet) 10 mg PO BID COUNTS INCLUDE 234 BEDS AT THE [facility] Last Admin: 10/01/21 08:16 Dose: 10 mg Documented by: Olanzapine (Olanzapine 5 Mg Tablet) 5 mg PO BID PRN PRN Reason: Psychosis Last Admin: 10/01/21 11:04 Dose: 5 mg Documented by: Olanzapine (Olanzapine 7.5 Mg Tablet) 7.5 mg PO BEDTIME COUNTS INCLUDE 234 BEDS AT THE [facility] Last Admin: 09/30/21 21:04 Dose: 7.5 mg Documented by: Pharmacy Consult (Consult Rx Perform Med Rec) 1 each MISCELLANE ONCE PRN PRN Reason: Consult order Trazodone HCl (Trazodone Hcl 50 Mg Tablet) 50 mg PO BEDTIME PRN PRN Reason: Insomnia Last Admin: 09/30/21 22:06 Dose: 50 mg Documented by: Allergies Allergies Allergy/AdvReac Type Severity Reaction Status Date / Time No Known Allergies Allergy Verified 01/27/21 11:46 Assessment & Plan Assessment & Plan (1) Psychosis: Status: Acute Code(s): F29 - Unspecified psychosis not due to a substance or known physiological condition (2) Dementia with behavioral disturbance: Status: Acute Code(s): F03.91 - Unspecified dementia with behavioral disturbance Plan The patient is an elderly male with a history of dementia admitted for exacerbation of psychotic symptoms elicited by auditory and visual hallucinations commanding to hurt himself and his . The patient is very well known by this services he was admitted here last year. Plan 1. Increase Zyprexa to 10 mg p.o. q.h.s. and keep rest the same 2. family meeting, the is going to look for long-term facilities pretty soon I spent __20____ minutes with the patient and/or on the patient floor today, greater than?50% of which was spent counseling/coordinating care. Reason for contiued inpatient stay Substantial Risk for: inability to function, rapid decompensation and med/psych decompensation
[2021-10-01 18:00] VITALS: BP 119/64; PULSE 92; TEMP 36.7; O2SAT 98
[2021-10-01] MEDS: traZODone HCL 50 MG TABLET PO (21:18)
[2021-10-01] MEDS: OLANZapine 7.5 MG TABLET PO (21:19)
[2021-10-01] MEDS: Donepezil HCl 10 MG TABLET PO (21:20)
[2021-10-02 07:50] VITALS: BP 142/63; PULSE 88; RESP 19; TEMP 36.7; O2SAT 93
[2021-10-02] MEDS: amLODIPine Besylate 10 MG TABLET PO (09:34)
[2021-10-02] MEDS: Memantine HCl 10 MG TABLET PO ×2 (09:34→20:43)
[2021-10-02] MEDS: Apixaban 5 MG TABLET PO ×2 (09:34→20:43)
[2021-10-02] MEDS: lisinopriL 5 MG TABLET PO (09:34)
[2021-10-02] MEDS: DULoxetine HCl 30 MG CAPSULE.DR PO ×2 (09:35→20:43)
[2021-10-02] MEDS: Finasteride 5 MG TABLET PO (09:35)
[2021-10-02] MEDS: Fluticasone Propionate Nasal 16 GM SPRAY 2 SPRAY NOSTRIL-B (09:42)
[2021-10-02] MEDS: Artificial Tears 15 ML DROPS 2 DROP EYE-RIGHT ×2 (09:43→20:48)
[2021-10-02] MEDS: Acetaminophen 325 MG TABLET 650 MG PO (13:57)
--- NOTE | 2021-10-02 14:46 | P.PNPSI_ITS ---
Subjective Subjective Date of Service: 10/02/21 Reason For Visit: psychosis Subjective Notes: Conditional Voluntary Interim History: the nursing staff reported the patient slept all night, he has been fully compliant with treatment. He looks confused base time. On interview the patient denies new symptoms. No over-sedation with increase of Zyprexa Mental Status Exam Mental Status Exam Patient Appearance: Well Grooomed Patient Orientation: Person Level of Consciousness: Awake Patient Behavior: Guarded and Passive Mood Description: Suspicious Affect Description: Constricted Patient Cognition Impaired: Yes Ability to Follow Directions: Good Speech Pattern: Clear Hallucinations: Auditory Delusions: Paranoid Ideation Thought Process: Illogical and Distracted Thought Content: positive for [place], positive for [place] and positive for Poverty of Content Judgement: Fair Diagnostics Vital Signs (24Hr): Vital Signs - 24 hr 10/01/21 18:00 10/02/21 07:50 Temperature 98.0 F 98.1 F Pulse Rate 92 88 Respiratory Rate 19 Blood Pressure 119/64 142/63 H Pulse Oximetry 98 93 BMI result Body Mass Index 32.8 Labs Results: 09/15/21 11:48 09/18/21 08:13 Imaging Radiology Impressions: ITS Impressions Head CT 09/18/21 15:47 IMPRESSION: No acute intracranial pathology. Medications Medications Current Medications Acetaminophen (Acetaminophen 325 Mg Tablet) 650 mg PO Q6H PRN PRN Reason: Headache/Pain Mild Scale (1-3) Last Admin: 10/02/21 13:57 Dose: 650 mg Documented by: Al Hydroxide/Mg Hydroxide (Magnesium Hydrox/Alum Hydrox 30 Ml Oral.Susp) 30 ml PO Q6H PRN PRN Reason: Heartburn/Nausea Amlodipine Besylate (Amlodipine Besylate 10 Mg Tablet) 10 mg PO DAILY TAMI; P rotocol Last Admin: 10/02/21 09:34 Dose: 10 mg Documented by: Apixaban (Apixaban 5 Mg Tablet) 5 mg PO BID TAMI Last Admin: 10/02/21 09:34 Dose: 5 mg Documented by: Artificial Tears (Artificial Tears 15 Ml Drops) 2 drop EYE-RIGHT Q4H PRN PRN Reason: Dry Eyes Last Admin: 10/02/21 09:43 Dose: 2 drop Documented by: Donepezil HCl (Donepezil Hcl 10 Mg Tablet) 10 mg PO BEDTIME TAMI Last Admin: 10/01/21 21:20 Dose: 10 mg Documented by: Duloxetine HCl (Duloxetine Hcl 30 Mg Capsule.Dr) 30 mg PO BID [facility] Last Admin: 10/02/21 09:35 Dose: 30 mg Documented by: Finasteride (Finasteride 5 Mg Tablet) 5 mg PO DAILY [facility] Last Admin: 10/02/21 09:35 Dose: 5 mg Documented by: Fluticasone Propionate (Fluticasone Propionate Nasal 16 Gm [place]) 2 spray NOSTRIL-B DAILY [facility] Last Admin: 10/02/21 09:42 Dose: 2 spray Documented by: Hydroxyzine HCl (Hydroxyzine Hcl 25 Mg Tablet) 25 mg PO BEDTIME PRN PRN Reason: Anxiety Last Admin: 09/30/21 21:04 Dose: 25 mg Documented by: Lisinopril (Lisinopril 5 Mg Tablet) 5 mg PO DAILY [facility]; Protocol Last Admin: 10/02/21 09:34 Dose: 5 mg Documented by: Magnesium Hydroxide (Milk Of Magnesia 30 Ml Oral.Susp) 30 ml PO DAILY PRN PRN Reason: Constipation Memantine (Memantine Hcl 10 Mg Tablet) 10 mg PO BID [facility] Last Admin: 10/02/21 09:34 Dose: 10 mg Documented by: Olanzapine (Olanzapine 5 Mg Tablet) 5 mg PO BID PRN PRN Reason: Psychosis Last Admin: 10/01/21 11:04 Dose: 5 mg Documented by: Olanzapine (Olanzapine 7.5 Mg Tablet) 7.5 mg PO BEDTIME [facility] Last Admin: 10/01/21 21:19 Dose: 7.5 mg Documented by: Pharmacy Consult (Consult Rx Perform Med Rec) 1 each MISCELLANE ONCE PRN PRN Reason: Consult order Trazodone HCl (Trazodone Hcl 50 Mg Tablet) 50 mg PO BEDTIME PRN PRN Reason: Insomnia Last Admin: 10/01/21 21:18 Dose: 50 mg Documented by: Allergies Allergies Allergy/AdvReac Type Severity Reaction Status Date / Time No Known Allergies Allergy Verified 01/27/21 11:46 Assessment & Plan Assessment & Plan (1) Psychosis: Status: Acute Code(s): F29 - Unspecified psychosis not due to a substance or known physiological condition (2) Dementia with behavioral disturbance: Status: Acute Code(s): F03.91 - Unspecified dementia with behavioral disturbance Plan The patient is an elderly male with a history of dementia admitted for exacerbation of psychotic symptoms elicited by auditory and visual hallucin ations commanding to hurt himself and his . The patient is very well known by this services he was admitted here last year. Plan 1. Increase Zyprexa to 10 mg p.o. q.h.s. and keep rest the same 2. family meeting, the is going to look for nursing home facilities pretty soon I spent __20____ minutes with the patient and/or on the patient floor today, greater than?50% of which was spent counseling/coordinating care. Reason for contiued inpatient stay Substantial Risk for: inability to function, rapid decompensation and med/psych decompensation
[2021-10-02 19:51] VITALS: BP 164/74; PULSE 84; RESP 16; TEMP 36.4; O2SAT 94
[2021-10-02] MEDS: traZODone HCL 50 MG TABLET PO (20:43)
[2021-10-02] MEDS: OLANZapine 7.5 MG TABLET PO (20:43)
[2021-10-02] MEDS: Donepezil HCl 10 MG TABLET PO (20:43)
[2021-10-02] MEDS: OLANZapine 5 MG TABLET PO (21:37)
[2021-10-03 07:00] VITALS: BMI 31.8
[2021-10-03 08:00] VITALS: BP 143/72; PULSE 69; RESP 18; TEMP 36.5; O2SAT 95
[2021-10-03] MEDS: Apixaban 5 MG TABLET PO ×2 (09:17→22:43)
[2021-10-03] MEDS: lisinopriL 5 MG TABLET PO (09:17)
[2021-10-03] MEDS: Finasteride 5 MG TABLET PO (09:17)
[2021-10-03] MEDS: DULoxetine HCl 30 MG CAPSULE.DR PO ×2 (09:17→22:43)
[2021-10-03] MEDS: Memantine HCl 10 MG TABLET PO ×2 (09:18→22:43)
[2021-10-03] MEDS: amLODIPine Besylate 10 MG TABLET PO (09:18)
[2021-10-03] MEDS: Fluticasone Propionate Nasal 16 GM SPRAY 2 SPRAY NOSTRIL-B (09:25)
[2021-10-03] MEDS: Artificial Tears 15 ML DROPS 2 DROP EYE-RIGHT ×2 (09:26→11:46)
[2021-10-03 13:34] LABS: COVID-19 Test Negative (Negative)
[2021-10-03] MEDS: Magnesium Hydrox/Alum Hydrox 30 ML ORAL.SUSP PO (13:47)
[2021-10-03] MEDS: OLANZapine 5 MG TABLET PO (15:44)
--- NOTE | 2021-10-03 16:19 | P.PNPSI_ITS ---
Subjective Subjective Date of Service: 10/03/21 Reason For Visit: psychosis Subjective Notes: Conditional Voluntary Interim History: The nursing staff reported the patient has been pleasant and cooperative with a sporadic auditory hallucination but easily redirectable. On interview the patient was pleasantly confused no new symptoms. The social service director reported that he had has a bed for tomorrow in an assisted living facility Mental Status Exam Mental Status Exam Patient Appearance: Well Grooomed Patient Orientation: Person and Situation Level of Consciousness: Awake Patient Behavior: Cooperative Mood Description: Withdrawn Affect Description: Constricted Patient Cognition Impaired: Yes Ability to Follow Directions: Good Speech Pattern: Clear Hallucinations: Auditory Delusions: Not Present Thought Process: Distracted Thought Content: positive for [place] and positive for Poverty of Content Judgement: Fair Diagnostics Vital Signs (24Hr): Vital Signs - 24 hr 10/02/21 19:51 10/03/21 08:00 Temperature 97.5 F 97.7 F Pulse Rate 84 69 Respiratory Rate 16 18 Blood Pressure 164/74 H 143/72 H Pulse Oximetry 94 95 BMI result Body Mass Index 31.8 Labs Results: 09/15/21 11:48 09/18/21 08:13 Labs: Laboratory Results - last 48 hr 10/03/21 13:00 COVID-19 ([facility]) Negative COVID-19 Clin Com See Note Imaging Radiology Impressions: ITS Impressions Head CT 09/18/21 15:47 IMPRESSION: No acute intracranial pathology. Medications Medications Current Medications Acetaminophen (Acetaminophen 325 Mg Tablet) 650 mg PO Q6H PRN PRN Reason: Headache/Pain Mild Scale (1-3) Last Admin: 10/02/21 13:57 Dose: 650 mg Documented by: Al Hydroxide/Mg Hydroxide (Magnesium Hydrox/Alum Hydrox 30 Ml Oral.Susp) 30 ml PO Q6H PRN PRN Reason: Heartburn/Nausea Last Admin: 10/03/21 13:47 Dose: 30 ml Documented by: Amlodipine Besylate (Amlodipine Besylate 10 Mg Tablet) 10 mg PO DAILY [facility]; Protocol Last Admin: 10/03/21 09:18 Dose: 10 mg Documented by: Apixaban (Apixaban 5 Mg Tablet) 5 mg PO BID [facility] Last Admin: 10/03/21 09:17 Dose: 5 mg Documented by: Artificial Tears (Artificial Tears 15 Ml Drops) 2 drop EYE-RIGHT Q4H PRN PRN Reason: Dry Eyes Last Admin: 10/03/21 11:46 Dose: 2 drop Documented by: Donepezil HCl (Donepezil Hcl 10 Mg Tablet) 10 mg PO BEDTIME [facility] Last Admin: 10/02/21 20:43 Dose: 10 mg Documented by: Duloxetine HCl (Duloxetine Hcl 30 Mg Capsule.Dr) 30 mg PO BID [facility] Last Admin: 10/03/21 09:17 Dose: 30 mg Documented by: Finasteride (Finasteride 5 Mg Tablet) 5 mg PO DAILY [facility] Last Admin: 10/03/21 09:17 Dose: 5 mg Documented by: Fluticasone Propionate (Fluticasone Propionate Nasal 16 Gm [place]) 2 spray NOSTRIL-B DAILY [facility] Last Admin: 10/03/21 09:25 Dose: 2 spray Documented by: Hydroxyzine HCl (Hydroxyzine Hcl 25 Mg Tablet) 25 mg PO BEDTIME PRN PRN Reason: Anxiety Last Admin: 09/30/21 21:04 Dose: 25 mg Documented by: Lisinopril (Lisinopril 5 Mg Tablet) 5 mg PO DAILY [facility]; Protocol Last Admin: 10/03/21 09:17 Dose: 5 mg Documented by: Magnesium Hydroxide (Milk Of Magnesia 30 Ml Oral.Susp) 30 ml PO DAILY PRN PRN Reason: Constipation Memantine (Memantine Hcl 10 Mg Tablet) 10 mg PO BID [facility] Last Admin: 10/03/21 09:18 Dose: 10 mg Documented by: Olanzapine (Olanzapine 5 Mg Tablet) 5 mg PO BID PRN PRN Reason: Psychosis Last Admin: 10/03/21 15:44 Dose: 5 mg Documented by: Olanzapine (Olanzapine 7.5 Mg Tablet) 7.5 mg PO BEDTIME [facility] Last Admin: 10/02/21 20:43 Dose: 7.5 mg Documented by: Pharmacy Consult (Consult Rx Perform Med Rec) 1 each MISCELLANE ONCE PRN PRN Reason: Consult order Trazodone HCl (Trazodone Hcl 50 Mg Tablet) 50 mg PO BEDTIME PRN PRN Reason: Insomnia Last Admin: 10/02/21 20:43 Dose: 50 mg Documented by: Allergies Allergies Allergy/AdvReac Type Severity Reaction Status Date / Time No Known Allergies Allergy Verified 01/27/21 11:46 Assessment & Plan Assessment & Plan (1) Psychosis: Status: Acute Code(s): F29 - Unspecified psychosis not due to a substance or known physiological condition (2) Dementia with behavioral disturbance: Status: Acute Code(s): F03.91 - Unspecified dementia with behavioral disturbance Plan The patient is an elderly male with a history of dementia admitted for exacerbation of psychotic symptoms elicited by auditory and visual hallucinations commanding to hurt himself and his . The patient is very well known by this services he was admitted here last year. Plan 1. Increase Zyprexa to 10 mg p.o. q.h.s. and keep rest the same 2. family meeting, the is going to look for [place] [facility] [place] facilities pretty soon I spent ___20___ minutes with the patient and/or on the patient floor today, greater than?50% of which was spent counseling/coordinating care. Reason for contiued inpatient stay Substantial Risk for: inability to function, rapid decompensation and med/psych decompensation
[2021-10-03 20:01] VITALS: BP 126/70; PULSE 80; RESP 16; TEMP 36.3; O2SAT 94
[2021-10-03] MEDS: OLANZapine 7.5 MG TABLET PO (22:43)
[2021-10-03] MEDS: Donepezil HCl 10 MG TABLET PO (22:43)
[2021-10-03] MEDS: Acetaminophen 325 MG TABLET 650 MG PO (22:44)
[2021-10-03] MEDS: traZODone HCL 50 MG TABLET PO (22:44)
[2021-10-04 07:45] VITALS: BP 153/72; PULSE 72; RESP 18; TEMP 36.3; O2SAT 96
--- NOTE | 2021-10-04 08:20 | PM.PSYDC ---
DS: Providers Provider Date of Service: 10/04/21 Date of admission: 09/17/21 16:05 Date of discharge: 10/04/21 Primary care physician: Mally Viveros MD DS: Diagnosis Discharge Diagnosis (1) Psychosis: Status: Acute (2) Dementia with behavioral disturbance: Status: Acute DS: Medications Discharge Medications Home Medications: Home Medications Medication Instructions Recorded Confirmed escitalopram oxalate 5 mg tablet 1 tab PO DAILY 09/15/21 09/15/21 fluticasone propionate 50 2 spray INTRANASAL DAILY 09/15/21 09/15/21 mcg/actuation nasal spray,suspension olanzapine 5 mg tablet 5 mg PO BID PRN 09/15/21 09/15/21 risperidone 1 mg tablet 3 mg PO BEDTIME 09/15/21 09/15/21 Previous Rx's Medication Instructions Recorded apixaban 5 mg tablet 5 mg PO BID 60 Days #120 tab 02/14/21 donepezil 10 mg tablet 10 mg PO BEDTIME 60 Days #60 tab 02/14/21 finasteride 5 mg tablet (Proscar) 5 mg PO DAILY 60 Days #60 tab 02/14/21 memantine 10 mg tablet (Namenda) 10 mg PO BID 60 Days #120 tab 02/14/21 acetaminophen 325 mg tablet 650 mg PO Q6H PRN 30 Days #60 tab 10/03/21 amlodipine 10 mg tablet 10 mg PO DAILY 30 Days #30 tab 10/03/21 apixaban 5 mg tablet (Eliquis) 5 mg PO BID 30 Days #60 tab 10/03/21 donepezil 10 mg tablet 10 mg PO BEDTIME 30 Days #30 tab 10/03/21 duloxetine 30 mg capsule,delayed 30 mg PO BID 30 Days #60 cap 10/03/21 release finasteride 5 mg tablet (Proscar) 5 mg PO DAILY 30 Days #30 tab 10/03/21 fluticasone propionate 50 2 spray INTRANASAL DAILY 30 Days 10/03/21 mcg/actuation nasal #1 g spray,suspension lisinopril 5 mg tablet 5 mg PO DAILY 30 Days #30 tab 10/03/21 memantine 10 mg tablet (Namenda) 10 mg PO BID 30 Days #60 tab 10/03/21 olanzapine 5 mg tablet 5 mg PO BID PRN 30 Days #30 tab 10/03/21 olanzapine 7.5 mg tablet 7.5 mg PO BEDTIME 30 Days #30 tab 10/03/21 polyvinyl alcohol 1.4 % eye drops 2 drp OPHTHALMIC-RIGHT Q4H PRN 30 10/03/21 (Artificial Tears (polyvinyl Days #1 ml alcohol)) trazodone 50 mg tablet 50 mg PO BEDTIME PRN 30 Days #30 10/03/21 tab Mental Status Exam Mental Status Exam Patient Appearance: Appropriate Patient Orientation: Person and Situation Level of Consciousness: Awake Patient Behavior: Cooperative Mood Description: Withdrawn Affect Description: Constricted Patient Cognition Impaired: Yes Ability to Follow Directions: Fair Speech Pattern: Clear Memory Description: Intact Hallucinations: Auditory Delusions: Not Present Thought Process: Distracted Thought Content: positive for [place] Judgement: Fair Data Data Completed and Pending Completed studies during hospitalization [Text1]: 10/03/21 13:00 COVID-19 ([facility]) Negative COVID-19 Clin Com See Note Imaging Diagnostic Imaging Impressions Head CT 09/18/21 15:47 IMPRESSION: No acute intracranial pathology. DS: Summary Hospital Course Hospital Course: The patient was readmitted to this facility after an episode of psychosis and disorganized behavior in the context of the advanced dementia. The patient is very well known by the stim since he was admitted a few months ago. Please see the HPI of the admission note for further details. On admission, since the patient had psychotic symptoms with auditory hallucinations that disturbing him we start titrating up Risperdal slowly up to 4 mg a day with very limited improvement. He had a p.r.n. Zyprexa and it showed better if he can see that Risperdal. We discussed medication management with his family and we cross taper from Risperdal to Zyprexa titrated up to 10 mg p.o. q.h.s. with some relief. The patient has advanced dementia, his [place] lowered several points from the last 1 that we have from previous admission. We discussed with the family disposition and it seems that at this point the patient would be a candidate for correction facilities but the family decided to reach for an assisted living facility. Since there were no safety concerns discharge planning was started. Time spent discussing smoking cessation with patient: 3 to 10 minutes Status at Discharge Cognitive/behavioral status at discharge: Worsening cognition Functional status at discharge: independent ambulation Overall status at discharge: patient is progressing back to baseline Time Spent with Patient Time attestation: Total time spent providing and/or coordinating discharge services: Time spent: Less than 30 minutes Discharge Plan Discharge Patient Disposition: Xfer LTC Discharge Diagnosis: psychosis NOS. Dementia Referrals: [facility] [Other] - 10/04/21 (Discharge/transfer to [facility] and will be seen for psychiatric services by Clary Mitchell pulmonary fellow for psychiatric services and Dr Anya Norwood for Primary Care at the facility. ) Discharge Medications: New acetaminophen 325 mg Tablet 650 mg PO Q6H PRN (Reason: Headache/Pain Mild Scale (1-3)) 30 Days Qty: 60 0RF trazodone 50 mg Tablet 50 mg PO BEDTIME PRN (Reason: Insomnia) 30 Days Qty: 30 0RF donepezil 10 mg Tablet 10 mg PO BEDTIME 30 Days Qty: 30 0RF polyvinyl alcohol [Artificial Tears (polyvin alc)] 1.4 % Drops 2 drp ophthalmic-Right Q4H PRN (Reason: Dry Eyes) 30 Days Qty: 1 0RF olanzapine 5 mg Tablet 5 mg PO BID PRN (Reason: Psychosis) 30 Days Qty: 30 0RF olanzapine 7.5 mg Tablet 7.5 mg PO BEDTIME 30 Days Qty: 30 0RF amlodipine 10 mg Tablet 10 mg PO DAILY 30 Days Qty: 30 0RF Protocol: Hold for SBP< HOLD for SBP < : 90 lisinopril 5 mg Tablet 5 mg PO DAILY 30 Days Qty: 30 0RF Protocol: Hold for SBP< HOLD for SBP < : 90 fluticasone propionate 50 mcg/actuation [place],Suspension 2 spray intranasal DAILY 30 Days Qty: 1 0RF finasteride [Proscar] 5 mg Tablet 5 mg PO DAILY 30 Days Qty: 30 0RF memantine [Namenda] 10 mg Tablet 10 mg PO BID 30 Days Qty: 60 0RF duloxetine 30 mg Capsule,Delayed Release(Dr/Ec) 30 mg PO BID 30 Days Qty: 60 0RF Eliquis 5 mg Tablet 5 mg PO BID 30 Days Qty: 60 0RF Discontinued finasteride [Proscar] 5 mg Tablet 5 mg PO DAILY 60 Days Qty: 60 0RF memantine [Namenda] 10 mg Tablet 10 mg PO BID 60 Days Qty: 120 0RF donepezil 10 mg Tablet 10 mg PO BEDTIME 60 Days Qty: 60 0RF apixaban 5 mg Tablet 5 mg PO BID 60 Days Qty: 120 0RF olanzapine 5 mg tablet 5 mg PO BID PRN (Reason: Psychosis) 0RF fluticasone propionate 50 mcg/actuation spray,suspension 2 spray intranasal DAILY 0RF escitalopram oxalate 5 mg tablet 1 tab PO DAILY 0RF risperidone 1 mg tablet 3 mg PO BEDTIME 0RF Discharge Orders: Discharge Order (Routine); Ordered 10/04/21 Ordered By: Boris Hdz Activity on Discharge: As tolerated Stand Alone Forms: Patient Portal Discharge page Care Plan Goals: care plan goals achieved in this admission Health Concerns: continue treatment as an outpatient Plan of Treatment: continue psychiatric services as an outpatient Assessment: elderly male with a history of dementia that has worsen it now with auditory hallucinations. At this moment safe for discharge.
[2021-10-04] MEDS: Finasteride 5 MG TABLET PO (08:50)
[2021-10-04] MEDS: DULoxetine HCl 30 MG CAPSULE.DR PO (08:50)
[2021-10-04] MEDS: Apixaban 5 MG TABLET PO (08:50)
[2021-10-04] MEDS: Memantine HCl 10 MG TABLET PO (08:50)
[2021-10-04] MEDS: lisinopriL 5 MG TABLET PO (08:50)
[2021-10-04] MEDS: amLODIPine Besylate 10 MG TABLET PO (08:50)
[2021-10-04 12:00] VITALS: BP 126/66
[2021-10-04] MEDS: LORazepam 0.5 MG TABLET PO (12:05)
[2021-10-04] MEDS: Fluticasone Propionate Nasal 16 GM SPRAY 2 SPRAY NOSTRIL-B (12:26)
[2021-10-04] MEDS: Artificial Tears 15 ML DROPS 2 DROP EYE-RIGHT (12:31)
--- NOTE | 2021-10-04 12:46 | PC.NURSE ---
Pt. is d/c to [facility] as he is aware along with spouse. Pt. has a steady gait and ambulates independently. All of his belongings were returned to him, minus the items that his spouse took to his home on 10/03/21 (documented in paperwork). Pt. has taken all scheduled medications today and OTC medications brought in from home have been sent with pt. to new facility. Pt. is transported via ambulance. Pt. VS stable.
== END 2021-10-04 14:08 | DRG 885 ==
LOC: HO.ED 09-17 10:36 → HO.PGERI 09-17 16:15
PROVIDERS: Physician Assistant; Admitting Provider Psychiatry & Neurology Psychiatry; Emergency Provider Emergency Medicine; PCP Internal Medicine; Visit Provider Psychiatry & Neurology Psychiatry
DX: F29 Unspecified psychosis not due to a substance or known physiological condition (principal); F03.91 Unspecified dementia, unspecified severity, with behavioral disturbance; Z20.822 Contact with and (suspected) exposure to COVID-19; Z87.891 Personal history of nicotine dependence; Z79.01 Long term (current) use of anticoagulants; Z79.51 Long term (current) use of inhaled steroids; Z79.899 Other long term (current) drug therapy
CPT/HCPCS: 36415; 70450; 80053; 80061; 80307; 81001; 81003; 82077; 85025; 87635; 93005; 96360; 99285

== ENCOUNTER 2023-04-02 05:54 | Outpatient (REF) | payer OTHER, SELFPAY ==
[2023-04-02 07:35] LABS: MANUAL DIFF FLAG NO
[2023-04-02 07:53] LABS: Basophils Percent Auto 0.7 % (0-2); Eosinophils Absolute Auto 0.1 X10*3/uL (0.0-0.4); Eosinophils Percent Auto 2.1 % (0-4); Hematocrit 44.1 % (42.0-52.0); Imm Gran Abs Auto 0.02 X10*3/uL (0.00-0.03); Imm Gran Pct Auto 0.4 % (0.0-0.4); Lymphocytes Absolute Auto 1.7 X10*3/uL (1.2-4.9); Mean Corpuscular Hemoglobin 31.6 pg (27.0-33.0); Mean Corpuscular Volume 92.8 fL (80.0-98.0); Monocytes Absolute Auto 0.4 X10*3/uL (0.1-1.2); Monocytes Percent Auto 7.6 % (2-11); Neutrophils Absolute Auto 3.3 x10*3/uL (2.0-8.3); Neutrophils Percent Auto 59.2 % (45-73); Platelet Count 211 X10*3/uL (160-400); Red Blood Count 4.75 X10*6/uL (4.60-5.80); Red Cell Distribution Width 13.4 % (11.0-16.0); White Blood Count 5.6 X10*3/uL (4.8-10.8)
[2023-04-02 08:04] LABS: Appearance Urine Clear; Color Urine Yellow; Glucose Urine UA Negative (Negative); Leukocyte Esterase Urine Negative (Negative); Nitrite Urine Negative (Negative); PH 5.5 (5.0-9.0); Specific Gravity - Urine 1.025 (1.005-1.025); Urine Blood Negative (Negative); Urine Ketones Negative (Negative); Urine Protein Negative (Neg-Trace)
[2023-04-02 08:18] LABS: Alanine Aminotransferase 19 U/L (0-40); Albumin Level 3.8 g/dL (3.5-5.0); Alkaline Phosphatase 49 U/L (39-117); Anion Gap 11 (12-20); Aspartate Amino Transferase 19 U/L (5-37); Bilirubin Total 0.7 mg/dL (0.0-1.0); Blood Urea Nitrogen 25 mg/dL (9-16); Calcium 8.6 mg/dL (8.4-10.2); Carbon Dioxide 28 mmol/L (22-29); Chloride 108 mmol/L (96-108); Cholesterol 188 mg/dL (<200); Estimated Glomerular Filt Rate > 60; Glucose Fasting 90 mg/dL (60-99); HDL Cholesterol 37 mg/dL (>40); LDL Cholesterol Calculated 126 mg/dL (<100); Potassium 3.7 mmol/L (3.3-5.1); Sodium 143 mmol/L (135-145); Total Protein 6.4 g/dL (6.5-8.0); Triglycerides 127 mg/dL (<150)
[2023-04-02 08:35] LABS: Thyroid Stimulating Hormone 1.42 uIU/mL (0.32-4.0)
[2023-04-04 17:04] LABS: TS Negative Control Passed; TS Panel A 97; TS Panel B 60; TS Positive Control Passed; TSpotTB Positive (Negative)
== END 2023-04-02 05:55 | disposition home or self-care (01) ==
LOC: HO.HSH4E 05:54
PROVIDERS: Visit Provider Internal Medicine
DX: F03.90 Unspecified dementia, unspecified severity, without behavioral disturbance, psychotic disturbance, mood disturbance, and anxiety (principal); M19.90 Unspecified osteoarthritis, unspecified site; N40.0 Benign prostatic hyperplasia without lower urinary tract symptoms
CPT/HCPCS: 36415; 80053; 80061; 81003; 84443; 85025; 86481

== ENCOUNTER 2023-05-27 13:54 | Outpatient (REF) | payer OTHER, SELFPAY ==
[2023-05-27 23:44] LABS: Appearance Urine Clear; Color Urine Yellow; Glucose Urine UA Negative (Negative); Leukocyte Esterase Urine Negative (Negative); Nitrite Urine Negative (Negative); Specific Gravity - Urine 1.015 (1.005-1.025); UMIC TRIGGER UACC YES; Urine Blood Small (1+) (Negative); Urine Ketones Negative (Negative); Urine Protein Negative (Neg-Trace)
[2023-05-27 23:55] LABS: Bacteria Urine None Seen (None Seen); Hyaline Casts Urine 0-2 /LPF (0-2); RBC Urine 0-2 /HPF (0-2); Squamous Epithelial Cell Urine 0-2 /HPF (0-2); WBC Urine 0-5 /HPF (0-5)
== END 2023-05-27 13:55 | disposition home or self-care (01) ==
LOC: HO.HSH4E 13:54
PROVIDERS: Visit Provider Internal Medicine Endocrinology, Diabetes & Metabolism
DX: R33.9 Retention of urine, unspecified (principal)
CPT/HCPCS: 81001; 81003; 87086

== ENCOUNTER 2023-05-27 15:00 | Outpatient (REF) | payer OTHER, SELFPAY | END 2023-05-27 15:01 | disposition home or self-care (01) | LOC: HO.HSH4E 15:00 | PROVIDERS: Visit Provider Internal Medicine Endocrinology, Diabetes & Metabolism | DX: Z13.89 Encounter for screening for other disorder (principal) ==

== ENCOUNTER 2023-06-25 05:46 | Outpatient (REF) | payer OTHER, SELFPAY ==
[2023-06-25 06:38] LABS: Prostate Specific Antigen Scr 0.47 ng/mL (<0.05-4.0)
== END 2023-06-25 05:47 | disposition home or self-care (01) ==
LOC: HO.HSH4E 05:46
PROVIDERS: Visit Provider Internal Medicine Medical Oncology
DX: Z12.5 Encounter for screening for malignant neoplasm of prostate (principal); N40.0 Benign prostatic hyperplasia without lower urinary tract symptoms
CPT/HCPCS: 36415; 84153

== ENCOUNTER 2023-07-01 14:34 | Outpatient (AMB) | payer OTHER, SELFPAY ==
--- NOTE | 2023-07-01 13:47 | HO.VETSHOME ---
Intake Intake Visit Reasons: New Pt @ [facility] Allergies No Known Allergies Allergy (Verified 01/27/21 11:46) HPI HPI Comments History of Present Illness Details Jorge is a 77 year old male who is being evaluated due to BPH with LUTS incomplete bladder emptying. The patient's is prestent. He has been on tamsulosin 0.4 mg daily and proscar 5 mg on admission. He had difficulty urinating on 05/27/23, urine c/s was done and was no growth. [facility] fl[facility] to 0.8 mg, and a bowel regimen was started PMH and medications reviewed in the [place] chart 06/25/23---PSA reviewed - 0.47 Plan - Cont flomax 0.8 mg, proscar 5 mg Urology fu in 6months [facility] Medical History DVT (deep venous thrombosis) Agitation due to dementia Dementia with behavioral disturbance Family History Other Cancer Social History Household Members: Spouse Housing: Condominium Do you presently have visiting nurse or other home services: No Alcohol intake: never Patient Tobacco Use Status: Former Tobacco user Tobacco use type: Cigarette e-Cigarette/Vaping Use: Never Used Second Hand Smoke Exposure: No Advance Directives Date on File: 02/18/21 service: Yes Sexual orientation: Straight/Heterosexual Review of Systems Const All systems reviewed & are unremarkable except as noted in HPI and below Reports no additional complaints Eyes Reports no additional complaints ENT Reports no additional complaints Card Denies dyspnea Resp Denies cough and Denies dyspnea GI Reports no additional complaints Musc Reports no additional complaints Skin/Breast Denies rash and Denies unusual bruising Neuro Reports no additional complaints Psych Reports no additional complaints Endo Reports no additional complaints Vladimir/Lymph Reports no additional complaints Aller/Immun Reports no additional complaints Physical Exam Const General: healthy appearing, no acute distress and well developed Orientation/consciousness: patient oriented x3 HEENT Head: Yes normocephalic and Yes atraumatic Eyes Conjunctivae: conjunctivae normal Neck Neck: Yes normal visual inspection Chest Chest palpation & inspection: normal inspection of the chest Resp Effort & Inspection: normal respiratory effort Cardio Rate: regular rate GI Inspection: Yes normal to inspection Skin General skin exam: no rashes or lesions noted Neuro General: patient oriented x3 Extrem General: No pedal edema Psych Appearance: grossly normal Affect: normal affect Assessment & Plan Assessment & Plan (1) BPH loc w urin obs/LUTS: Code(s): N40.1 - Benign prostatic hyperplasia with lower urinary tract symptoms Plan Cont flomax 0.8 mg, proscar 5 mg Urology fu in 6months Coding Level of Care Code 46623-[id number] Fac initial, mod Diagnoses BPH loc w urin obs/LUTS N40.1
== END 2023-07-01 16:06 | disposition home or self-care (01) ==
LOC: HO.HUSV 14:34
PROVIDERS: PCP Internal Medicine; Visit Provider Urology
DX: N40.1 Benign prostatic hyperplasia with lower urinary tract symptoms (principal)
CPT/HCPCS: 99305

== ENCOUNTER 2023-07-22 05:02 | Outpatient (REF) | payer OTHER, SELFPAY ==
[2023-07-22 06:30] LABS: Anion Gap 8 (12-20); Carbon Dioxide 29 mmol/L (22-29); Chloride 106 mmol/L (96-108); Potassium 3.2 mmol/L (3.3-5.1); Sodium 140 mmol/L (135-145)
== END 2023-07-22 05:03 | disposition home or self-care (01) ==
LOC: HO.HSH4E 05:02
PROVIDERS: Visit Provider Internal Medicine Endocrinology, Diabetes & Metabolism
DX: I10 Essential (primary) hypertension (principal); R60.0 Localized edema
CPT/HCPCS: 36415; 80051

== ENCOUNTER 2023-08-25 06:47 | Outpatient (REF) | payer OTHER, SELFPAY ==
[2023-08-25 07:36] LABS: Anion Gap 11 (12-20); Carbon Dioxide 28 mmol/L (22-29); Chloride 109 mmol/L (96-108); Potassium 3.5 mmol/L (3.3-5.1); Sodium 144 mmol/L (135-145)
== END 2023-08-25 06:48 | disposition home or self-care (01) ==
LOC: HO.HSH4E 06:47
PROVIDERS: Visit Provider Internal Medicine Endocrinology, Diabetes & Metabolism
DX: E87.6 Hypokalemia (principal)
CPT/HCPCS: 36415; 80051

== ENCOUNTER 2023-12-28 16:57 | Outpatient (REF) | payer MEDICARE, SELFPAY ==
[2023-12-28 17:18] LABS: MANUAL DIFF FLAG NO
[2023-12-28 17:37] LABS: Alanine Aminotransferase 27 U/L (0-40); Albumin Level 4.1 g/dL (3.5-5.0); Alkaline Phosphatase 69 U/L (39-117); Anion Gap 16 (12-20); Aspartate Amino Transferase 21 U/L (5-37); Bilirubin Total 0.5 mg/dL (0.0-1.0); Blood Urea Nitrogen 23 mg/dL (9-16); Calcium 9.3 mg/dL (8.4-10.2); Carbon Dioxide 24 mmol/L (22-29); Chloride 107 mmol/L (96-108); Estimated Glomerular Filt Rate > 60; Glucose Random 100 mg/dL (60-115); Potassium 3.7 mmol/L (3.3-5.1); Sodium 143 mmol/L (135-145); Total Protein 7.2 g/dL (6.5-8.0)
[2023-12-28 17:46] LABS: Basophils Absolute Auto 0.1 X10*3/uL (0.0-0.2); Basophils Percent Auto 0.7 % (0-2); Eosinophils Absolute Auto 0.2 X10*3/uL (0.0-0.4); Eosinophils Percent Auto 2.6 % (0-4); Hematocrit 46.6 % (42.0-52.0); Imm Gran Abs Auto 0.07 X10*3/uL (0.00-0.03); Lymphocytes Absolute Auto 1.7 X10*3/uL (1.2-4.9); Lymphocytes Percent Auto 23.2 % (20-40); Mean Corpuscular HGB Conc 34.3 g/dl (31.0-36.0); Mean Corpuscular Hemoglobin 31.7 pg (27.0-33.0); Mean Corpuscular Volume 92.5 fL (80.0-98.0); Mean Platelet Volume 8.6 fL (9.4-12.4); Monocytes Absolute Auto 0.5 X10*3/uL (0.1-1.2); Monocytes Percent Auto 6.6 % (2-11); Neutrophils Absolute Auto 4.8 x10*3/uL (2.0-8.3); Neutrophils Percent Auto 65.9 % (45-73); Platelet Count 264 X10*3/uL (160-400); Red Blood Count 5.04 X10*6/uL (4.60-5.80); Red Cell Distribution Width 13.3 % (11.0-16.0); White Blood Count 7.3 X10*3/uL (4.8-10.8)
== END 2023-12-28 16:58 | disposition home or self-care (01) ==
LOC: HO.LAB 16:57
PROVIDERS: Visit Provider Nurse Practitioner
DX: U07.1 COVID-19 (principal)
CPT/HCPCS: 36415; 80053; 85025

== ENCOUNTER 2024-03-28 21:17 | Outpatient (REF) | payer MEDICARE, SELFPAY ==
[2024-03-28 21:32] LABS: Appearance Urine Clear; Color Urine Yellow; Glucose Urine UA Negative (Negative); Leukocyte Esterase Urine Trace (Negative); Nitrite Urine Negative (Negative); PH 6.5 (5.0-9.0); UMIC TRIGGER UACC YES; Urine Blood Negative (Negative); Urine Ketones Negative (Negative); Urine Protein Negative (Neg-Trace)
[2024-03-28 21:44] LABS: Bacteria Urine None Seen (None Seen); Hyaline Casts Urine 0-2 /LPF (0-2); RBC Urine 0-2 /HPF (0-2); Squamous Epithelial Cell Urine 0-2 /HPF (0-2); WBC Urine 0-5 /HPF (0-5)
== END 2024-03-28 21:18 | disposition home or self-care (01) ==
LOC: HO.HSH4E 21:17
PROVIDERS: Visit Provider Nurse Practitioner Acute Care
DX: R30.0 Dysuria (principal); R31.9 Hematuria, unspecified
CPT/HCPCS: 81001

== ENCOUNTER 2024-04-01 13:27 | Emergency (ER) | payer OTHER, MEDICARE, SELFPAY ==
--- NOTE | ~2024-04-01 | CT_ITS ---
EXAMINATION: CT HEAD WITHOUT CONTRAST CT CERVICAL SPINE WITHOUT CONTRAST CLINICAL INFORMATION: Trauma. COMPARISON: No prior CT scan of the cervical spine. CT scans of the head dated September 18, 2021 and January 31, 2021. TECHNIQUE: CT of the head and cervical spine were performed without intravenous contrast. Multiplanar reformats were rendered and reviewed. This CT examination was performed using dose optimization techniques as appropriate, variously including the following: *Automated exposure control *Adjustment of mA and/or kV according to patient size (this includes techniques or standardized protocols for targeted exams where dose is matched to indication/reason for exam; i.e. extremities or head) *Use of iterative reconstruction technique DLP: 1380 mGy-cm. FINDINGS: CT head: No intracranial hemorrhage, large infarction, or mass lesion is seen. Diffuse cortical atrophy with a frontal predominance. Suspect mild chronic bilateral periventricular white matter ischemic change. No extra-axial collection is appreciated. The ventricles are normal in size and configuration without evidence of hydrocephalus. Atretic right A1 segment. Mucosal thickening involving all maxillary sinuses, most notably the left maxillary sinus. The and mastoid air cells are clear. Mild deviation of the nasal septum toward the left, with a bony septum protruding toward the left CT cervical spine: The vertebral body heights appear maintained. No cervical spine fracture is seen. Multilevel disc degenerative change with relative sparing at C2-C3. Mild reversal of the normal cervical lordosis centered at C5-C6. Bilateral neuroforaminal narrowing most notable at C3-C4 through C5-C6. Approximately 1.8 cm right posterior thyroid nodule (image 55, series 14). The paraspinal soft tissues appear within normal limits. The partially imaged lung apices appear clear. CT/CT head/brain wo IV con IMPRESSION: CT head: No acute intracranial finding. CT cervical spine: No cervical spine fracture or traumatic malalignment identified. Approximately 1.8 cm right posterior thyroid nodule. Dedicated thyroid ultrasound examination performed on a nonemergent basis is recommended for further evaluation. Electronically signed by: Ruddy Blackmon MD 04/01/2024 03:22 PM [facility]
--- NOTE | ~2024-04-01 | CT_ITS ---
EXAMINATION: CT HEAD WITHOUT CONTRAST CT CERVICAL SPINE WITHOUT CONTRAST CLINICAL INFORMATION: Trauma. COMPARISON: No prior CT scan of the cervical spine. CT scans of the head dated September 18, 2021 and January 31, 2021. TECHNIQUE: CT of the head and cervical spine were performed without intravenous contrast. Multiplanar reformats were rendered and reviewed. This CT examination was performed using dose optimization techniques as appropriate, variously including the following: *Automated exposure control *Adjustment of mA and/or kV according to patient size (this includes techniques or standardized protocols for targeted exams where dose is matched to indication/reason for exam; i.e. extremities or head) *Use of iterative reconstruction technique DLP: 1380 mGy-cm. FINDINGS: CT head: No intracranial hemorrhage, large infarction, or mass lesion is seen. Diffuse cortical atrophy with a frontal predominance. Suspect mild chronic bilateral periventricular white matter ischemic change. No extra-axial collection is appreciated. The ventricles are normal in size and configuration without evidence of hydrocephalus. Atretic right A1 segment. Mucosal thickening involving all maxillary sinuses, most notably the left maxillary sinus. The and mastoid air cells are clear. Mild deviation of the nasal septum toward the left, with a bony septum protruding toward the left CT cervical spine: The vertebral body heights appear maintained. No cervical spine fracture is seen. Multilevel disc degenerative change with relative sparing at C2-C3. Mild reversal of the normal cervical lordosis centered at C5-C6. Bilateral neuroforaminal narrowing most notable at C3-C4 through C5-C6. Approximately 1.8 cm right posterior thyroid nodule (image 55, series 14). The paraspinal soft tissues appear within normal limits. The partially imaged lung apices appear clear. CT/CT cervical spine wo IV con IMPRESSION: CT head: No acute intracranial finding. CT cervical spine: No cervical spine fracture or traumatic malalignment identified. Approximately 1.8 cm right posterior thyroid nodule. Dedicated thyroid ultrasound examination performed on a nonemergent basis is recommended for further evaluation. Electronically signed by: Ruddy Blackmon MD 04/01/2024 03:22 PM [facility]
--- NOTE | ~2024-04-01 | XR_ITS ---
EXAMINATION: XR HIP, LEFT CLINICAL INFORMATION: Trauma. COMPARISON: None available. TECHNIQUE: Two views of the left hip and frontal view of the pelvis. FINDINGS: No fracture identified. Alignment appears anatomic. Hip joint space appear maintained. Degenerative changes of the incidentally visualized portion of the lower lumbar spine. Soft tissues appear unremarkable. Surgical clips project over the lower anterior abdominal soft tissues. XR/XR hip LT w PEL1V IMPRESSION: No acute finding. Electronically signed by: Ruddy Blackmon MD 04/01/2024 04:07 PM [facility]
[2024-04-01 13:27] VITALS: BP 132/74; BP 143/75; PULSE 16; PULSE 79; RESP 75; TEMP 36.9; O2SAT 96; O2SAT 98; BMI 32.3
[2024-04-01 13:28] VITALS: PULSE 75; RESP 16
--- NOTE | 2024-04-01 14:00 | PC.NURSE ---
Triage vital signs vital signs for the triage were placed incorrectly- the RR is where the pulse is and the pulse is where RR is located in meditech, attempts to edit the triage were unsuccessful as it wouldnt allow,
--- NOTE | 2024-04-01 14:26 | PC.NURSE ---
pt to radiology
[2024-04-01] MEDS: Acetaminophen 325 MG TABLET 975 MG PO (14:57)
[2024-04-01 16:00] VITALS: BP 152/70; PULSE 81; RESP 16; O2SAT 96
--- NOTE | 2024-04-01 16:57 | PC.NURSE ---
ambulation trial performed, pts at bedside felt he was at his baseline and he denied pain
--- NOTE | 2024-04-01 17:22 | ED_ITS ---
HPI - Fall General Chief Complaint: Fall Stated Complaint: [facility], FALL, R & L HIP PAIN PER EMS Time Seen by Provider: 04/01/24 14:07 Source: family Limitations: other (Dementia) History of Present Illness ED Provider: Bety rivero PA-C HPI Narrative: 78-year-old male with a history of hypertension, BPH, depression, dementia with behavioral disturbances and psychosis at times, prior DVT no longer on apixaban, presents after fall. Patient resides at the [facility] home, he was attempting to stand from his wheelchair, he subsequently tripped, falling onto his left side. Unclear if there was a head strike. To note, staff was present for the incident. There is a family member at bedside, she was not present for the actual fall, she does not know if there was an actual head strike. The patient complains of left arm and left leg pain at this time. Related Data Previous Rx's ?Medication ?Instructions ?Recorded acetaminophen 325 mg tablet 650 mg (2 x 325 mg) PO Q6H PRN 10/03/21 Headache/Pain Mild Scale (1-3) 30 days #60 tabs amlodipine 10 mg tablet 10 mg PO DAILY 30 days #30 tabs 10/03/21 apixaban 5 mg tablet (Eliquis) 5 mg PO BID 30 days #60 tabs 10/03/21 donepezil 10 mg tablet 10 mg PO BEDTIME 30 days #30 tabs 10/03/21 duloxetine 30 mg capsule,delayed 30 mg PO BID 30 days #60 caps 10/03/21 release finasteride 5 mg tablet (Proscar) 5 mg PO DAILY 30 days #30 tabs 10/03/21 fluticasone propionate 50 2 spray intranasal DAILY 30 days 10/03/21 mcg/actuation nasal #1 g spray,suspension lisinopril 5 mg tablet 5 mg PO DAILY 30 days #30 tabs 10/03/21 memantine 10 mg tablet (Namenda) 10 mg PO BID 30 days #60 tabs 10/03/21 olanzapine 5 mg tablet 5 mg PO BID PRN Psychosis 30 days 10/03/21 #30 tabs olanzapine 7.5 mg tablet 7.5 mg PO BEDTIME 30 days #30 tabs 10/03/21 polyvinyl alcohol 1.4 % eye drops 2 drp ophthalmic-Right Q4H PRN Dry 10/03/21 (Artificial Tears (polyvinyl Eyes 30 days #1 mL alcohol)) trazodone 50 mg tablet 50 mg PO BEDTIME PRN Insomnia 30 10/03/21 days #30 tabs Allergies Allergy/AdvReac Type Severity Reaction Status Date / Time No Known Allergies Allergy Verified 04/01/24 13:35 Review of Systems Review of Systems: Unable to obtain secondary to dementia Yes all other systems are reviewed and are negative [facility] Past Medical History Attestation statement: The following information was validated with the patient. Medical History DVT (deep venous thrombosis) Agitation due to dementia Dementia with behavioral disturbance Family History Family History Other Cancer Social History Social History Household Members: Spouse Housing: Condominium Do you presently have visiting nurse or other home services: No Alcohol intake: never Patient Tobacco Use Status: Former Tobacco user Tobacco use type: Cigarette Smoked in Last 30 Days: No e-Cigarette/Vaping Use: Never Used Second Hand Smoke Exposure: No Use of substances other than those prescribed or required for medical reasons: No Advance Directives: Yes Advance Directives on File: Yes Advance Directives Date on File: 02/18/21 Do you have a plan to hurt others: No Plan service: Yes Sexual orientation: Straight/Heterosexual Physical Exam Vital Signs: Vital Signs: Last Vital Signs Temp 98.4 F 04/01/24 13:27 Pulse 81 04/01/24 16:00 Resp 16 04/01/24 16:00 BP 152/70 H 04/01/24 16:00 Pulse Ox 96 04/01/24 16:00 O2 Del Method Room Air 04/01/24 16:00 BMI result Body Mass Index 32.3 Const: Other: Alert, overall well in appearance, no sign of head trauma on exam Orientation/consciousness: oriented to person and patient oriented x3 Neck: Other: Soft supple full range of motion Resp: Other: Nonlabored respiration Cardio: Other: Normal peripheral perfusion Skin: Other: Warm dry no rash Neuro: General: oriented to person, patient oriented x3, no focal motor deficits and CN's II-XI intact bilaterally Extrem: Other: Patient able to perform straight leg raise on the left greater than 30?. He has palpable pain over the left lateral hip without deformity. He has full range of motion, and strength is 5/5 of the left upper extremity with resistance, Psych: Other: Calm cooperative Course Reevaluation(s) Reevaluation #1: Once imaging was back, we ambulated the patient, he was able to walk at his baseline without pain, we are able to send him home Medications Administered Discontinued Medications Generic Name Dose Route Start Last Admin Trade Name Ger PRN Reason Stop Dose Admin Acetaminophen 975 mg 04/01/24 14:14 04/01/24 14:57 Acetaminophen 325 Mg Tablet PO 04/01/24 14:15 975 mg ONCE ONE Administration Medical Decision Making Medical Decision Making MDM Narrative: 78-year-old male with a history of hypertension, BPH, depression, dementia with behavioral disturbances and psychosis at times, prior DVT no longer on apixaban, presents after fall. Patient resides at the [facility] home, he was attempting to stand from his wheelchair, he subsequently tripped, falling onto his left side. Unclear if there was a head strike. To note, staff was present for the incident. There is a family member at bedside, she was not present for the actual fall, she does not know if there was an actual head strike. The patient complains of left arm and left leg pain at this time. Problem: Dementia, age, gait instability History: Per patient's family member and skilled nursing record I have considered the following differential diagnoses: Fracture, dislocation, intracranial hemorrhage, cervical spine injury Plan: Unclear if the patient struck his head, given his age, and he is not a reliable historian, I am scanning his head and neck. His musculoskeletal exam is unremarkable in regard to the left upper extremity, however he is having focal pain left lateral hip, we will obtain imaging of the pelvis and hip. Given Tylenol for pain deferring labs at this time, if the patient has sustained an acute injury and requires surgical intervention, we will obtain them At that time. I have independently reviewed the following tests: CT brain and cervical spine: CT/CT cervical spine wo IV con IMPRESSION: CT head: No acute intracranial finding. CT cervical spine: No cervical spine fracture or traumatic malalignment identified. Approximately 1.8 cm right posterior thyroid nodule. Dedicated thyroid ultrasound examination performed on a nonemergent basis is recommended for further evaluation. Electronically signed by: Ruddy Blackmon MD 04/01/2024 03:[address] left hip and pelvis: XR/XR hip LT w PEL1V IMPRESSION: No acute finding. Electronically signed by: Ruddy Blackmon MD 04/01/2024 04:07 PM EST RP Discharge Plan Discharge Clinical Impression: Contusion of hip, left Patient Disposition: Home, Self-Care Instructions: Hip Contusion (ED) Additional Instructions: CT scans of your brain and cervical spine were obtained, there were no acute injuries. X-rays of the pelvis and left hip were negative for fracture or dislocation. You sustained a contusion. See home care instructions. You can use [id number] Tylenol 1000 mg taken every 8 hours as needed for pain. Follow up with your primary care provider as needed. Prescriptions: No Action acetaminophen 325 mg Tablet 650 mg PO Q6H PRN (Reason: Headache/Pain Mild Scale (1-3)) 30 Days Qty: 60 0RF trazodone 50 mg Tablet 50 mg PO BEDTIME PRN (Reason: Insomnia) 30 Days Qty: 30 0RF donepezil 10 mg Tablet 10 mg PO BEDTIME 30 Days Qty: 30 0RF polyvinyl alcohol [Artificial Tears (polyvin alc)] 1.4 % Drops 2 drp ophthalmic-Right Q4H PRN (Reason: Dry Eyes) 30 Days Qty: 1 0RF olanzapine 5 mg Tablet 5 mg PO BID PRN (Reason: Psychosis) 30 Days Qty: 30 0RF olanzapine 7.5 mg Tablet 7.5 mg PO BEDTIME 30 Days Qty: 30 0RF amlodipine 10 mg Tablet 10 mg PO DAILY 30 Days Qty: 30 0RF Protocol: Hold for SBP< HOLD for SBP < : 90 lisinopril 5 mg Tablet 5 mg PO DAILY 30 Days Qty: 30 0RF Protocol: Hold for SBP< HOLD for SBP < : 90 fluticasone propionate 50 mcg/actuation Harper,Suspension 2 spray intranasal DAILY 30 Days Qty: 1 0RF finasteride [Proscar] 5 mg Tablet 5 mg PO DAILY 30 Days Qty: 30 0RF memantine [Namenda] 10 mg Tablet 10 mg PO BID 30 Days Qty: 60 0RF duloxetine 30 mg Capsule,Delayed Release(Dr/Ec) 30 mg PO BID 30 Days Qty: 60 0RF Eliquis 5 mg Tablet 5 mg PO BID 30 Days Qty: 60 0RF Print Language: Georgian
--- NOTE | 2024-04-01 18:05 | PC.NURSE ---
patient alert/oriented to person/place, at bedside, rr equal/non labored, pt no longer complaining of pain/discomfort, at bedside, pt awaiting discharge back to [facility] via ems approx 1830.
[2024-04-01 19:13] VITALS: BP 148/72; PULSE 16; RESP 76; TEMP 36.7; O2SAT 96
== END 2024-04-01 19:13 | disposition home or self-care (01) ==
PROVIDERS: Emergency Provider Student in an Organized Health Care Education/Training Program; PCP Internal Medicine Endocrinology, Diabetes & Metabolism
DX: S70.02XA Contusion of left hip, initial encounter (principal); W05.0XXA Fall from non-moving wheelchair, initial encounter; Y93.89 Activity, other specified; Y92.89 Other specified places as the place of occurrence of the external cause; Y99.9 Unspecified external cause status; R26.89 Other abnormalities of gait and mobility; F03.90 Unspecified dementia, unspecified severity, without behavioral disturbance, psychotic disturbance, mood disturbance, and anxiety; I10 Essential (primary) hypertension; N40.0 Benign prostatic hyperplasia without lower urinary tract symptoms; I82.409 Acute embolism and thrombosis of unspecified deep veins of unspecified lower extremity; Z86.718 Personal history of other venous thrombosis and embolism
CPT/HCPCS: 70450; 72125; 73502; 99284

== ENCOUNTER 2024-05-28 14:00 | Outpatient (REF) | payer OTHER, MEDICARE, SELFPAY ==
--- OUTSIDE RECORDS SUMMARY | 2024-05-28 14:02 | XMS_ITS | Encounter Summary ---
Author Name [facility] [place] [facility] [place] [place] Address [address] [place] [address] Care Team Providers Care Purchasing Assistant Name Role Phone ANI BYRNE Primary Care Provide r Unavailable Insurance Providers: All historical and current Section Date Range: From patient's date of to the date document was created. This section includes the names of all active insurance providers for the patient. Insurance Provider Type of Coverage Plan Name Start of Policy Coverage End of Policy Coverage Group Number Member ID Insurance Provider's Telephone Number Policy Fletcher's Name Patient's Relationship to Policy Fletcher [facility] ([facility]) MEDICARE ADVANTAGE [facility] ([facility]) May 18, 2016 [id number] ARLEN CHOUDHARY PATIENT Selected Encounter This section includes the information on record at [place] for the Encounter. Date/Time Encounter Type Encounter Description Reason Provider Source Sep 09, 2023 09:30 AM OFFICE O/P EST LOW 20 MIN PRIMARY CARE/MEDICINE ICD-10-CM I10 Essential (primary) hypertension ANI VEE Encounter Template Text not used by [facility] Assessments - Encounter Diagnoses This section includes the primary and secondary diagnoses documented for the Encounter. Date/Time Primary/Secondary Diagnosis Diagnosis Name Provider Source Sep 09, 2023 10:03 AM PRIMARY Essential (primary) hypertension KAMERON OMALLEYNKA M [facility] Sep 09, 2023 10:03 AM SECONDARY Alzheimer's disease, unspecified ANI OMALLEY [facility] Sep 09, 2023 10:03 AM SECONDARY Benign prostatic hyperplasia without lower urinry tract symp BERNARDOSUSIE RANGELANI [facility] Social History: Smoking Status (Most current) and Tobacco Use (All prior to encounter date) This section includes the most current, and the historical, smoking and tobacco- related health factors from the [place] facility where the Encounter took place. Current Smoking Status This section includes the most current smoking, or tobacco-related health factor, from the [place] facility where the Encounter took place. Date/Time Current Smoking Status Comment Facil ity Sep 09, 2023 09:30 AM VA-TOBACCO FORMER USER [facility] Tobacco Use History This section includes a history of the smoking, or tobacco-related health factors, that were collected on or before the date of the Encounter. The data comes from the [place] facility where the Encounter took place. Date/Time Smoking Status/Tobacco Use Comment F acility Sep 09, 2023 09:30 AM VA-TOBACCO QUIT 15 YRS OR MORE [facility] October 12, 2019 01:24 PM VA-TOBACCO FORMER USER [facility] October 12, 2019 01:24 PM VA-TOBACCO QUIT 15 YRS OR MORE [facility] Sep 07, 2018 03:36 PM VA-TOBACCO FORMER USER [facility] Sep 07, 2018 03:36 PM UT-TOBACCO QUIT 15 YRS OR MORE [facility] Advance Directives: All historical and current Section Date Range: From patient's date of to the date document was created. This section includes ALL of a patient's completed or amended [place] Advance and Rescinded Directives. The entries below indicate that a directive exists for the patient, but an actual copy is not included with this document. The data comes from all [place] facilities. Date Advance Directives Provider Source Aug 12, 2022 [facility] Jan 28, 2020 ADVANCE DIRECTIVE IAN MORRELL [facility] [place] [facility] Oct 20, 2018 ADVANCE DIRECTIVE MATTI SOLANO [facility] Encounter Notes: All associated encounter notes This section contains the clinical notes associated to the Encounter. Date/Time Encounter Note(s) Provider Source Sep 09, 2023 09:43 AM PREVENTIVE MEDICIN E NURSING NOTE: LOCAL TITLE: CLINICAL REMINDERS/NURSING STANDARD TITLE: PREVENTIVE MEDICINE NURSING NOTE DATE OF NOTE: SEP 09, 2023@09:43 ENTRY DATE: SEP 09, 2023@09:44:02 AUTHOR: LEE FREEMAN EXP COSIGNER: URGENCY: STATUS: COMPLETED Tobacco Pack Year History: Patient used cigarettes in the past, but quit and does not currently use them: Quit smoking GREATER THAN OR EQUAL to 15 years ago. Suicide Screen: C-SSRS Screening [place] Suicide Severity Rating Scale (C-SSRS) screener 1. Over the past month, have you wished you were or wished you could go to sleep and not wake up? No 2. Over the past month, have you had any actual thoughts of killing yourself? No 3. Over the past month, have you been thinking about how you might do this? Response not required due to responses to other questions. 4. Over the past month, have you had these thoughts and had some intention of acting on them? Response not required due to responses to other questions. 5. Over the past month, have you started to work out or worked out the details of how to kill yourself? Response not required due to responses to other questions. 6. If yes, at any time in the past month did you intend to carry out this plan? Response not required due to responses to other questions. 7. In your lifetime, have you ever done anything, started to do anything, or prepared to do anything to end your life (for example, collected pills, obtained a gun, gave away valuables, went to the roof but didn't jump)? No 8. If YES, was this within the past 3 months? Response not required due to responses to other questions. Depression Screening: Perform PHQ-2 A PHQ-2 screen was performed. The score was 0 which is a negative screen for depression. Over the past two weeks, how often have you been bothered by the following problems? 1. Little interest or pleasure in doing things Not at all 2. Feeling down, depressed, or hopeless Not at all Falls & Incontinence Screen: Falls Screen: During the past 12 months, did the patient report any falls? 4. No falls within the past year. Incontinence Screen: During the past 12 months, has the patient has any characteristics of incontinence (ability, voiding, leakage, etc.)? No incontinence. Homelessness/Food Insecurity Screen: In the past 2 months, have you been living in stable housing that you own, rent, or stay in as part of a household? Yes - Living in stable housing. Are you worried or concerned that in the next 2 months you may NOT have stable housing that you own, rent, or stay in as part of a household? No - Not worried about housing near future The [facility] reports the following: Within the past 12 months, you worried whether your food would run out before you got money to buy more. Never true Within the past 12 months, the food you bought just didn't last and you didn't have money to get more. Never true Alcohol Use Screen (AUDIT-C): Alcohol Screen: SCREEN FOR ALCOHOL (AUDIT-C) An alcohol screening test (AUDIT-C) was negative (score=0). 1. How often did you have a drink containing alcohol in the past year? Consider a drink to be a 12 ounce can or bottle of regular beer, 8 ounces of malt liquor, a 5 ounce glass of table wine, or a 1.5 ounce shot of liquor (like scotch, gin, or vodka). Never 2. How many drinks containing alcohol did you have on a typical day when you were drinking in the past year? Response not required due to responses to other questions. 3. How often did you have six or more drinks on one occasion in the past year? Response not required due to responses to other questions. Sexual Orientation: The patient thinks of their sexual orientation as: Straight or Heterosexual RHS Screen: RHS Screen Environmental Check Screening was not completed at this time due to: Another adult present Tobacco Use Screening: The patient is a former tobacco user. The patient quit fifteen or more years ago. Influenza Immunization: The patient declines to receive the recommended dose of seasonal influenza vaccine. Immunization: INFLUENZA, UNSPECIFIED FORMULATION Refusal Reason: PATIENT DECISION Patient refuses all immunization(s) in the FLU group Date Documented: 09/09/23 09:46 Pneumococcal Conjugate Vaccine (PCV15/PCV20): Virtual/Telehealth Visit - Patient educated on the need for receiving Pneumococcal conjugate vaccine either at [facility] or outside facility. Advance Directive Screen MH AD: Patient has an Advance Directive on file at this [facility]. No updates are needed at this time. The patient received education about Advance Directives and written notification of his/her rights. COVID-19 Immunization: Virtual/Telehealth Visit - Patient educated on the need for receiving COVID-19 (SARS-CoV-2) immunization either at [facility] or outside facility. Tdap Immunization: Virtual/Telehealth Visit - Patient educated on the need for receiving Tdap immunization either at [facility] or outside facility. Herpes Zoster (Shingles) Vaccine: Virtual/Telehealth Visit - Patient educated on the need for receiving Herpes Zoster (Shingles) immunization either at [facility] or outside facility. /bhupinder/ LEE FREEMAN LPN LPN Signed: 09/09/2023 09:46 LEE FREEMAN Sep 09, 2023 09:38 AM TELEHEALTH NOTE: LOCAL TITLE: Zoe Majeste VIDEO CONNECT NOTE STANDARD TITLE: TELEHEALTH NOTE DATE OF NOTE: SEP 09, 2023@09:38 ENTRY DATE: SEP 09, 2023@09:38:50 AUTHOR: LEE FREEMAN EXP COSIGNER: URGENCY: STATUS: COMPLETED E911 (Emergency Call Relay Center): [phone] Local emergency response numbers can be found at http://www.[employer]. National Veterans Crisis Line - (4-019-213-VGHQ) press #1. [facility] Suicide Coordinator [phone], Ext. [phone]; Back-up Ext. [phone] Urgent Care, [facility] [phone], Ext. [phone] Introduction: Visit is being conducted by [facility]. [facility] identified with 2 identifiers: [X] Full Name [X] Date of [ ] Address [ ] [facility] ID Card Emergency Plan: [facility] confirmed and/or provided the following information in case of emergency or technology failure. PATIENT PHONE - PHONE NUMBER [CELLULAR] - Is patient phone number correct, if not, enter below: [facility]'s phone number: [address], [place] [address] 's present location and address for appointment: [address] [place] [address] [facility]'s emergency contact name and phone number: Eileen Aguilarordano [facility] reported that location is private and safe: Yes Informed Consent: informed of the risks and benefits of Telehealth video care. has the right to refuse video services. If refuses video visit, a [id number]-[id number] visit will be scheduled. verbalized consent for this video visit: Yes provided consent for any other persons present for visit: Yes If yes, who and relationship to patient: Secure visit: Visit was locked for security and privacy:Yes /bhupinder/ LEE FREEMAN LPN LPN Signed: 09/09/2023 09:43 LEE FREEMAN Sep 09, 2023 09:30 AM PHYSICIAN NOTE: LOCAL TITLE: MD NOTE STANDARD TITLE: PHYSICIAN NOTE DATE OF NOTE: SEP 09, 2023@09:30 ENTRY DATE: SEP 08, 2023@23:47:36 AUTHOR: Tonie BYRNE COSIGNER: URGENCY: STATUS: COMPLETED Pt is 77 y/o M with PMH of HTN, HL, Dementia, GERD, BPH. LAst/Initial visit 07/2022 [facility]CP [facility] noN [facility] Anya Hennessy [phone], YOLY Fernandes, prn - Since March 2023 patient resides at [facility] PCP at the facility Other providers: -- Clary Mitchell educational psychology professor -- Dr Mckeon Neurology [facility] [phone] Today I talked with patient's Eileen ( on communication authorization) who Provided history and has been visiting patient almost daily pt with advanced dementia. Patient is poor and vague historian due to dementia. He is mostly wheelchair-bound Able to walk with a walker up to 50 feet, limited by leg weakness shaking Attending daily activities in the facility Watching TV Sleeping a lot No issues with bowel bladder movement Good appetite Gained weight due to lack of physical activity He has no complaints today PAST MEDICAL HISTORY: --Alzheimer's disease --GERD -08/2018 EGD to r/o [facility]- negative study-GI. Dr. Manjinder Pink, --repeat study in 3-5 yrs. -- BPH PAST SURGICAL HISTORY: --Third metatarsal surgery 2004 --Carpal tunnel surgery --Arthroscopic knee surgery ALLERGIES: NKDA MEDICATIONS: Per chart-unable to reconcile medications today-Will obtain most recent list from [facility] and update the chart -Non-VA ASPIRIN 81MG CHEW TAB 81MG BY MOUTH ONCE DAILY -Non-VA CARVEDILOL 3.125MG TAB 3.125MG BY MOUTH TWICE DAILY -Non-VA FINASTERIDE 5MG TAB 5MG -Non-VA TAMSULOSIN HCL 0.4MG -Non-VA DULOXETINE HCL 30MG DAILY -Non-VA LORAZEPAM TAB -Non-VA MEMANTINE 10MG TAB -Non-VA RIVASTIGMINE 9.5MG/24HR PATCH 1 PATCH -Non-VA CARIPRAZINE 1.5MG ORAL CAP 1.5MG BY MOUTH TWICE DAILY -Non-VA SENNOSIDES 8.6MG TAB 8.6MG -Non-VA ACETAMINOPHEN 325MG TAB 650MG BY MOUTH TWICE DAILY -Non-VA CHOLECALCIF 25MCG (D3-1,000UNIT) TAB 25MCG ONCE DAILY FAMILY HISTORY: --Mental Health/addiction: parents AD --Other: SOCIAL HISTORY: [place] era --Occupation:Retired --Cohabitation: Patient resides at [facility]'s home since 03/2023 --Children: 2 adult (46/42 Y/O) --D[facility]: provided at [facility] --Exercise: none --Caffeine: Denies --EtOH:none --Tob: Denies --MJ: Denies --Illicits: Denies --Eye: --Dental: partial dentures, not using --Hospitalizations: #2022 [facility] ROS: Constitutional: no fever/no chills, no ns Eyes: no decreased vision/blurry vision Ears/Nose/Throat: no hearing change Respiratory: no cough/wheezing/SOB Cardiovascular: no CP /palpitations Gastrointestinal: no abdominal pain/bloody/black stools :no dysuria/hematuria/trouble voiding MSK: no joint pain/myalgia Neuro: no dizziness/H/A Skin: no pruritus/rash Ambulates with a cane PHYSICAL EXAM: Vital Signs: Blood Pressure: 144/84 (08/12/2022 11:31)--> BP usually well controlled BMI 32 Patient Weight: 209 lb -self-reported 08/2023 194 lb [88.00 kg] (08/12/2022 11:31) LABORATORY: --05/2022 Non-VA labs -- CBC normal Renal liver function normal Cholesterol 190 Triglycerides 139 LDL 121 HDL 42 Vitamin D 22 ASSESSMENT/PLAN: Pt is 77 y/o M with PMH of HTN, HL, Dementia, GERD, BPH. #HTN: Per well controlled on current regimen Unclear if patient still takes aspirin #Alzheimer's disease- f/w neurology #BPH: Symptoms well controlled on finasteride and tamsulosin #Vitamin D deficiency: vitamin D supplementation 25 mcg daily Healthcare maintenance: --Lipids: LDL 121 (05/2022) --Diabetes: A1c 4.7 (2018) --Colon CA (50-75): last colonoscopy per 2015 --Lung CA: --PSA --AAA (smoker/65): --Influenza (yrly): declined --COVID: x5 --PCV13 --PCV23: --HZV (>60yrs, x1): --RZV (>50yrs, x1): --TD: 2012 --Hep C screen: --HIV screen: --DEXA: --Advanced Directives: Comanagement - prefers to have most aspects of health maintenance, chronic condition(s) and medication management to non-VA PCP. Return to clinic to see me in _12__ months, sooner PRN. Virtual (X ), F2F ( ) ( )non fasting labs ordered prior to f/u ( )fasting labs ordered prior to f/u ( )no labs needed ( x)request labs from outside provider ==prior to next visit ( x)request records from outside providers Medication Reconciliation: Outpatient: Medication Reconciliation was attempted at this encounter, but unable to complete: Patient/Caregiver unable to confirm all the medications the patient is taking. /bhupinder/ ANI BYRNE MD PHYSICIAN Signed: 09/09/2023 10:03 KOTA BYRNE [facility]
--- OUTSIDE RECORDS SUMMARY | 2024-05-28 14:02 | XMS_ITS | Encounter Summary ---
Author Name [facility] [place] Organization [facility] [place] Address [address] [place] [address] Care Team Providers Care Ultimate Hoops Referee Name Role Phone ANI BYRNE Primary Care [...] Fletcher's Name Patient's Relationship to Policy Fletcher [facility] ([facility]) MEDICARE ADVANTAGE [facility] ([facility]) May 18, 2016 [id number] ARLEN CHOUDHARY PATIENT Selected Encounter This section includes the information on record at [place] for the Encounter. Date/Time Encounter Type Encounter Description Reason Pro vider Source May 25, 2024 03:57 PM Outpatient Encounter COMMUNITY CARE CONSULT IHE Encounter Template Text not used by [facility] Plan of Treatment: Future Appointments (+ 6 months) and Future Tests (+/- 45 days) The Plan of Treatment section includes future care activities for the patient from all [facility] treatmentfacilities. This section includes future appointments and future orders which are active, pending or scheduled. Future Appointments This section includes appointments that were scheduled to occur 6 months from the date of the Encounter, up to a maximum of 20 appointments. The data comes from all [place] treatment facilities. Appointment Date/Time Appointment Type Appointme nt Facility Name Sep 14, 2024 11:30 AM AMBULATORY - MEDICINE [facility] Social History: Smoking Status (Most current) and Tobacco Use (All prior to encounter date) This section includes the most current, and the historical, smoking and tobacco- related health factors from the [place] facility where the Encounter took place. Current Smoking Status This section includes the most current smoking, or tobacco-related health factor, from the [place] facility where the Encounter took place. Date/Time Current Smoking Status Comment Facil ity Aug 08, 2022 10:13 AM [place]-TOBACCO FORMER USER [facility] Tobacco Use History This section includes a history of the smoking, or tobacco-related health factors, that were collected on or before the date of the Encounter. The data comes from the [place] facility where the Encounter took place. Date/Time Smoking Status/Tobacco Use Comment F acility Aug 08, 2022 10:13 AM CO-TOBACCO QUIT 15 YRS OR MORE [facility] Advance Directives: All historical and current Section Date Range: From patient's date of to the date document was created. This section includes ALL of a patient's completed or amended [place] Advance and Rescinded Directives. The entries below indicate that a directive exists for the patient, but an actual copy is not included with this document. The data comes from all [place] facilities. Date Advance Directives Provider Source Aug 12, 2022 ADVANCE [facility]IVE [facility] Jan 28, 2020 ADVANCE DIRECTIVE IAN MORRELL [facility] Oct 20, 2018 ADVANCE DIRECTIVE MATTI SOLANO [facility] Encounter Notes: All associated encounter notes This section contains the clinical notes associated to the Encounter. Date/Time Encounter Note(s) Provider Source May 25, 2024 03:57 PM NONVA NOTE: LOCAL TITLE: COMMUNITY CARE-[facility] PRESENTING CARE COORD PLAN STANDARD TITLE: NONVA NOTE DATE OF NOTE: MAY 25, 2024@15:57 ENTRY DATE: MAY 25, 2024@15:57:07 AUTHOR: JESSICA FU COSIGNER: URGENCY: STATUS: COMPLETED Emergency Notification Intake Date Presenting to the Facility: Mar Method of Contact: Notified from ECR worklist Notification ID: [id number] [facility] Referral #: [id number] [facility] Name: Hospital: [facility] Address: City: [place] State: [place] Zip Code: Phone : Community Facility Point of Contact: Name: Sharee Phone: Chief complaint: FALL, R & l HIP PAIN PER EMS Primary Diagnosis: Disposition Discharged Date of discharge: Mar Discharge to Comment: ER Only /bhupinder/ JESSICA ZAMORA Signed: 05/25/2024 15:58 Receipt Acknowledged By: * AWAITING SIGNATURE * ADDIE LARIOS * AWAITING SIGNATURE * JANET IVEY * AWAITING SIGNATURE * KARLIE SANTOS * AWAITING SIGNATURE * ROSEMARY JAUREGUI DAWN MARIE SHELLY
[2024-05-28 14:12] LABS: Appearance Urine Cloudy; Color Urine Yellow; Glucose Urine UA Negative (Negative); Leukocyte Esterase Urine Negative (Negative); Nitrite Urine Negative (Negative); PH 5.5 (5.0-9.0); Specific Gravity - Urine >= 1.030 (1.005-1.025); Urine Blood Negative (Negative); Urine Ketones Negative (Negative); Urine Protein Trace mg/dL (Neg-Trace)
== END 2024-05-28 14:01 | disposition home or self-care (01) ==
LOC: HO.HSH4E 14:00
PROVIDERS: Visit Provider Internal Medicine Endocrinology, Diabetes & Metabolism
DX: R35.0 Frequency of micturition (principal)
CPT/HCPCS: 81003